=== PATIENT | male | born 1975 | race Two or more races ===

== ENCOUNTER 2020-08-31 08:00 | Inpatient (IN) | payer MEDICAID ==
[~2020-08-31] VITALS: Ht 165.1 cm; Wt 79.8 kg
[2020-08-31] VITALS (7 sets, daily range): BP systolic 107–127; BP diastolic 72–86
--- NOTE | 2020-08-31 08:30 | NUR ---
ED Nurse Note: pt arrived from home for increased SOB x1 week. O2 sat 73% RA, 88% 10L NC. pt diaphoretic, febrile (no meds taken at home). RR in50's, accessory muscle use. pt tachycardic in 130's. pt placed on continuous director cardiac. IVs initiated, fluids infusing. pt O2 sat increased to 95% on 15L NRB. pt A&Ox4. labs sent, covid swab in lab. respiratory at bedside. aware. pt favio [facility].
[2020-08-31 08:35] LABS: HEMOGLOBIN 12.5 G/DL (12.0-16.0); MEAN CORPUSCULAR VOLUME 75 FL (80-99); PLATELET COUNT 244 K/UL (150-450); RED BLOOD COUNT 4.77 M/UL (4.20-5.40); RED CELL DISTRIBUTION WIDTH 16.9 % (11.6-14.8); WHITE BLOOD COUNT 7.6 K/UL (4.8-10.8)
[2020-08-31] MEDS ORDERED: Acetaminophen 500mg (ES) tab ORAL ONE (08:45)
[2020-08-31 08:49] LABS: ANION GAP 11 mmol/L (5-15); BLOOD UREA NITROGEN 12 mg/dL (7-18); CALCIUM 7.6 MG/DL (8.5-10.1); CARBON DIOXIDE 22 MMOL/L (21-32); CHLORIDE 96 MMOL/L (98-107); CREATININE 1.3 MG/DL (0.55-1.30); POTASSIUM 3.3 MMOL/L (3.5-5.1); SODIUM 129 MMOL/L (136-145)
[2020-08-31] MEDS ORDERED: Piperacillin/Tazobactam 3.375 GM in NS 110 ML IVPB ONE (09:00)
[2020-08-31] MEDS ORDERED: Azithromycin 500 MG in NS 275 ML IV ONE (09:00)
--- NOTE | 2020-08-31 09:00 | Diagnostic Imaging Report ---
EXAM: XR Chest, 1 View CLINICAL HISTORY: SOB TECHNIQUE: Frontal view of the chest. COMPARISON: No relevant prior studies available. FINDINGS/IMPRESSION: Patchy bilateral airspace consolidations, consistent with severe multifocal infiltrate. Suspect, small effusions. No pneumothorax. Follow-up chest radiograph recommended. Cardiomegaly.
[2020-08-31 09:05] LABS: ALANINE AMINOTRANSFERASE 33 U/L (12-78); ALBUMIN 2.9 G/DL (3.4-5.0); ALBUMIN/GLOBULIN RATIO 0.6 (1.0-2.7); ALKALINE PHOSPHATASE 57 U/L (46-116); ASPARTATE AMINO TRANSFERASE 54 U/L (15-37); BILIRUBIN,TOTAL 0.5 MG/DL (0.2-1.0); FERRITIN 344 NG/ML (8-388); LACTATE DEHYDROGENASE 513 U/L (81-234)
[2020-08-31] MEDS ORDERED: LORazepam Inj 2mg/ml 1ml IV ONE (09:30)
[2020-08-31] MEDS ORDERED: Enoxaparin 40mg Inj SUBQ ONE (09:30)
[2020-08-31] MEDS ORDERED: dexAMETHasone 10mg/ml Inj IV ONE (09:30)
[2020-08-31 09:34] LABS: APPEARANCE,URINE CLEAR; BILIRUBIN, URINE NEGATIVE (NEGATIVE); COLOR,URINE PALE YELLOW; GLUCOSE, URINE (UA) NEGATIVE (NEGATIVE); KETONES,URINE NEGATIVE (NEGATIVE); LEUKOCYTE ESTERASE ,URINE NEGATIVE (NEGATIVE); NITRITE,URINE NEGATIVE (NEGATIVE); PH,URINE 6 (4.5-8.0); PROTEIN,URINE 2+ (NEGATIVE); UROBILINOGEN,URINE NORMAL MG/DL (0.0-1.0)
--- NOTE | 2020-08-31 10:01 | NUR ---
ED Nurse Note: reflex lactic drawn and sent to lab. pt on side to increase respiratory abililty.. on continuous gambling monitor. RR still 30-40. ax temp 100.5.
--- NOTE | 2020-08-31 10:30 | NUR ---
ED Nurse Note: pt tachypnea in 40's on bipap. pt rectal temp 100.8. notified. ice packs applied
--- NOTE | 2020-08-31 10:38 | Emergency Room Report ---
History of Present Illness General Chief Complaint: Flu Like Symptoms Source: Patient Present Illness HPI 45-year-old male presents for shortness of breath. Brought in by EMS from home. Short of breath x1 week. Per EMS hypoxic to the 80s. Placed on oxygen. On arrival he is tachypneic. Crackles. Febrile in triage. Denies chest pain. States he has not been tested for Covid. Lives with his friends. No other aggravating relieving factors. Denies any other associated symptoms Allergies: Coded Allergies: No Known Allergies (Unverified , 08/31/20) COVID-19 Screening Contact w/high risk pt: No Experienced COVID-19 symptoms?: Yes COVID-19 Testing performed BRICK MASON: No Patient History Past Medical History: none Past Surgical History: none Pertinent Family History: none Social History: Denies: smoking, alcohol use, drug use Immunizations: UTD Reviewed Nursing Documentation: PMH: Agreed; PSxH: Agreed Nursing Documentation-PMH Past Medical History: No Stated History Review of Systems All Other Systems: negative except mentioned in HPI Physical Exam Vital Signs Date Time Temp Pulse Resp B/P (MAP) Pulse Ox O2 Delivery O2 Flow Rate FiO2 08/31/20 07:55 102.0 134 24 141/85 (103) 84 Room Air 08/31/20 08:25 15.0 08/31/20 08:26 96 Sp02 EP Interpretation: reviewed, normal General Appearance: alert, GCS 15, non-toxic, mild distress Head: normocephalic, atraumatic Eyes: bilateral eye normal inspection, bilateral eye PERRL ENT: hearing grossly normal, normal pharynx, no angioedema, normal voice Neck: full range of motion, supple/symm/no masses Respiratory: chest non-tender, accessory muscle use, crackles, speaking full sentences Cardiovascular #1: no edema, tachycardia Cardiovascular #2: 2+ carotid (R), 2+ carotid (L), 2+ radial (R), 2+ radial (L), 2+ dorsalis pedis (R), 2+ dorsalis pedis (L) Gastrointestinal: normal bowel sounds, non tender, soft, non-distended, no guarding, no rebound Rectal: deferred Genitourinary: normal inspection, no CVA tenderness Musculoskeletal: back normal, normal range of motion, gait/station normal, non- tender Neurologic: alert, motor strength/tone normal, oriented x3, sensory intact, responsive, speech normal Psychiatric: judgement/insight normal, memory normal, mood/affect normal, no suicidal/homicidal ideation Reflexes: 3+ bicep (R), 3+ bicep (L), 3+ tricep (R), 3+ tricep (L), 3+ knee (R), 3+ knee (L) Skin: other - See nursing notes Lymphatic: no adenopathy Procedures Critical Care Time Critical Care Time i. I feel this is a highly complex case requiring extensive working including EKG/Rhythm strip, Xray/CT/US, Blood/urine lab work, repeat exams while in ED, and administration of strong opiates/narcotics for pain control, admission to hospital or close patient follow up. Total time: 45 min bedside evaluation and treatment excludes procedures (EKG). Reason for critical care: Hypoxia, respiratory distress Possible complications: hypotension, hypertension, RI, shock, arrhythmias, metabolic acidosis, end organ damage, respiratory failure. Interventions: Labs, EKG, chest x-ray, ABG, BiPAP, cardiac monitoring, isolation precautions, Covid swab, Decadron, Lovenox, antibiotics Course: Patient brought in for shortness of breath. Hypoxic. Chest x-ray shows patchy bilateral opacities. Concerning for Covid. Covid swab sent. Given broad-spectrum antibiotics. Given Decadron and Lovenox. Started on BiPAP. Respiratory status improved. Consultations: nursing staff, EMS, family Performed by: Dr Kat Tolerated well condition = critical j. because of unstable vital signs this patient had a condition that could potentially threaten life or limb. I feel this is a critical patient who required my full attention while patient was considered critical. Total Critical Care Time excluding procedures was greater than 45 minutes Medical Decision Making Diagnostic Impression: Primary Impression: COVID-19 Additional Impressions: Respiratory distress Pancreatitis Qualified Codes: K85.90 - Acute pancreatitis without necrosis or infection, unspecified ER Course Hospital Course 45-year-old male presents with respiratory distress, hypoxia Differential diagnoses include: Pneumonia, CHF exacerbation, pneumothorax, fluid overload Clinical course Patient placed on stretcher. In isolation. I wore full PPE. On vp communications with hypoxia on room air and tachycardia. After initial history and physical I ordered labs, IV fluids, EKG, chest x-ray, blood cultures, UA. Patient started on BiPAP Labs -no leukocytosis noted, hemoglobin/hematocrit stable, electrolytes ok, lactate 3.2, inflammatory markers elevated, D-dimer elevated, lipase elevated EKGsinus tachycardia no acute ischemic changes interpreted by me CXR -bilateral patchy opacities Highly suspicious for Covid. Covid swab sent. Antibiotics given. Decadron and Lovenox given. Respiratory status improving on BiPAP Case discussed with Dr. Fragoso and he agreed to the patient to his service for further care and support I feel this is a highly complex case requiring extensive working including EKG/Rhythm strip, Xray/CT/US, Blood/urine lab work, repeat exams while in ED, and administration of strong opiates/narcotics for pain control, admission to hospital or close patient follow up. Diagnosis -COVID-19, respiratory distress, pancreatitis Patient admitted to SDU in critical condition Laboratory Tests Test 08/31/20 08:07 08/31/20 08:45 08/31/20 08:50 08/31/20 10:16 White Blood Count 7.6 K/UL (4.8-10.8) Red Blood Count 4.77 M/UL (4.20-5.40) Hemoglobin 12.5 G/DL (12.0-16.0) Hematocrit 36.0 % (37.0-47.0) L Mean Corpuscular Volume 75 FL (80-99) L Mean Corpuscular Hemoglobin 26.3 PG (27.0-31.0) L Mean Corpuscular Hemoglobin Concent 34.8 G/DL (32.0-36.0) Red Cell Distribution Width 16.9 % (11.6-14.8) H Platelet Count 244 K/UL (150-450) Mean Platelet Volume 8.2 FL (6.5-10.1) Neutrophils (%) (Auto) % (45.0-75.0) Lymphocytes (%) (Auto) % (20.0-45.0) Monocytes (%) (Auto) % (1.0-10.0) Eosinophils (%) (Auto) % (0.0-3.0) Basophils (%) (Auto) % (0.0-2.0) Prothrombin Time 11.3 SEC (9.30-11.50) Prothromb Time International Ratio 1.0 (0.9-1.1) Activated Partial Thromboplast Time 30 SEC (23-33) D-Dimer 2.07 mg/L FEU (0.00-0.49) H Sodium Level 129 MMOL/L (136-145) L Potassium Level 3.3 MMOL/L (3.5-5.1) L Chloride Level 96 MMOL/L (98-107) L Carbon Dioxide Level 22 MMOL/L (21-32) Anion Gap 11 mmol/L (5-15) Blood Urea Nitrogen 12 mg/dL (7-18) Creatinine 1.3 MG/DL (0.55-1.30) Estimat Glomerular Filtration Rate > 60 mL/min (>60) Glucose Level 148 MG/DL (74-106) H Lactic Acid Level 3.10 mmol/L (0.4-2.0) H Pending Calcium Level 7.6 MG/DL (8.5-10.1) L Ferritin 344 NG/ML (8-388) Total Bilirubin 0.5 MG/DL (0.2-1.0) Aspartate Amino Transf (AST/SGOT) 54 U/L (15-37) H Alanine Aminotransferase (ALT/SGPT) 33 U/L (12-78) Alkaline Phosphatase 57 U/L (46-116) Lactate Dehydrogenase 513 U/L (81-234) H Troponin I 0.002 ng/mL (0.000-0.056) C-Reactive Protein, Quantitative 20.3 mg/dL (0.00-0.90) H Pro-B-Type Natriuretic Peptide 33 pg/mL (0-125) Total Protein 7.9 G/DL (6.4-8.2) Albumin 2.9 G/DL (3.4-5.0) L Globulin 5.0 g/dL Albumin/Globulin Ratio 0.6 (1.0-2.7) L Lipase 1347 U/L (73-393) H Urine Color Pale yellow Urine Appearance Clear Urine pH 6 (4.5-8.0) Urine Specific Everly 1.010 (1.005-1.035) Urine Protein 2+ (NEGATIVE) H Urine Glucose (UA) Negative (NEGATIVE) Urine Ketones Negative (NEGATIVE) Urine Blood 2+ (NEGATIVE) H Urine Nitrite Negative (NEGATIVE) Urine Bilirubin Negative (NEGATIVE) Urine Urobilinogen Normal MG/DL (0.0-1.0) Urine Leukocyte Esterase Negative (NEGATIVE) Urine RBC 0-2 /HPF (0 - 0) H Urine WBC 0 /HPF (0 - 0) Urine Squamous Epithelial Cells Occasional /LPF Urine Bacteria Occasional /HPF (NONE) Arterial Blood pH 7.480 (7.350-7.450) Arterial Blood Partial Pressure CO2 26.5 mmHg (35.0-45.0) L Arterial Blood Partial Pressure O2 114.7 mmHg (75.0-100.0) H Arterial Blood HCO3 19.3 mmol/L (22.0-26.0) L Arterial Blood Oxygen Saturation 97.6 % (95-100) Arterial Blood Base Excess -2.9 (-2-2) L Jack Test Positive EKG Diagnostic Results Troponin ordered: Yes Rate: tachycardiac Rhythm: NSR ST Segments: no acute changes ASA given to the pt in ED: No Rhythm Strip Diag. Results EP Interpretation: yes Rhythm: NSR, no PVC's, no ectopy Chest X-Ray Diagnostic Results Chest X-Ray Diagnostic Results : Chest X-Ray Ordered: Yes # of Views/Limited/Complete: 1 View Indication: Shortness of Breath EP Interpretation: Yes Interpretation: no effusion, no pneumothorax, other - Bilateral patchy opacities Impression: Other - Pneumonia Electronically Signed by: Electronically signed by Alfredo Kat MD Last Vital Signs Date Time Temp Pulse Resp B/P (MAP) Pulse Ox O2 Delivery O2 Flow Rate FiO2 08/31/20 10:02 100.5 99 40 115/82 100 Bi-pap 100 08/31/20 08:26 15.0 Status: improved Disposition: ADMITTED INPATIENT Condition: Critical Scripts No Active Prescriptions or Reported Meds Referrals: NOT CHOSEN IPA/,REFERRING (PCP) Alfredo Kat MD Aug 31, 2020 10:38
[2020-08-31] MEDS ORDERED: Ketorolac 30mg Inj IV ONE (10:45)
[2020-08-31] MEDS ORDERED: Albuterol/Ipratropium 3ml neb HHN ONE (10:45)
--- NOTE | 2020-08-31 10:59 | NUR ---
ED Nurse Note: report called to dale DONOVAN in SDU.
--- NOTE | 2020-08-31 11:25 | NUR ---
NURSE NOTES: Pt received from Matilde DONOVAN. Vitals as follows 112/72, HR 91, Resp 33, O2 96% on Bipap, 98.7 axillary. Pt complains of generalized body pain but no chest pain at this time. Bed low and locked, call light placed within reach. Pt demonstrates understanding. Per pt no history no allergies. [employer] counted>
[2020-08-31] MEDS ORDERED: Albuterol 90mcg Inhaler 8gm INH PRN (12:15)
--- NOTE | 2020-08-31 14:21 | NUR ---
CASE MANAGEMENT: INITIAL REVIEW 45 YO M WITH SOB CC: FLU LIKE SYMPTOMS. 86% ON RA PMHx: UNABLE TO STATE SI:SOB. COVID. Pancreatitis. VS: T 102 HR 134 RR 24 B/P 141/85 SATS 84% ON RA LABS: NA 129 K 3.3 CL 96 GLU 148 CA 7.6 AST 54 LDH 513 CRP 20.3 LIPASE 1347 IS: NS BOLUS X1 TYLENOL PO X1 EKGsinus tachycardia no acute ischemic changes interpreted by me CXR -bilateral patchy opacities PATIENT ADMITTED TO SDU 08/31/2020 @ 0848 DCP: HOME
--- NOTE | 2020-08-31 14:37 | NUR ---
NURSE NOTES: Dr. Fragoso made aware of Ddimer, Na, K, Cl, lipase. 20mg K ordered.
[2020-08-31] MEDS: cefTRIAXone 1 GM in D5W 55 ML IVPB SCH (15:02)
[2020-08-31] MEDS: Albuterol 90mcg Inhaler 8gm INH SCH ×2 (15:03→18:05)
--- NOTE | 2020-08-31 17:44 | Consultation ---
DATE OF CONSULTATION: 08/31/2020 PULMONARY CONSULTATION HISTORY OF PRESENT ILLNESS: This is a 45-year-old male who was brought in by paramedics. He reports shortness of breath. He was hypoxic and placed on oxygen. He was tachypneic. The patient was febrile. The patient states that he has not been tested for COVID. However, he believes that he may have contracted this condition. PAST MEDICAL HISTORY: None. SURGERIES: None. SOCIAL HISTORY: Denies alcohol or tobacco usage. REVIEW OF SYSTEMS: Denies any headaches, hematemesis, melena, hematochezia, or weight loss. PHYSICAL EXAMINATION: GENERAL: A 45-year-old male. HEENT: Unremarkable. LUNGS: Clear breath sounds bilaterally. HEART: Normal heart sounds. ABDOMEN: Soft. EXTREMITIES: There is no edema. VITAL SIGNS: Blood pressure is 117/70, heart rate 68, respirations 20, O2 sat is 100% on nonrebreather mask. LABORATORY DATA: Lab testing shows normal CBC and BMP with a sodium of 129, potassium 3.3, glucose 148, lactic acid 3.1, now 1.2. LDH 513. Troponin 0.002. CRP is 20. Coags show D-dimer of 2. Urinalysis negative. IMAGING STUDIES: X-ray chest was obtained, which shows patchy bilateral air space disease. IMPRESSION: 1. Pneumonia, likely COVID. 2. Elevated inflammatory markers. 3. Hypoxemia. DISCUSSION: Admit to the hospital. We will start Decadron. We will start Lovenox. Defer the use of remdesivir to ID specialist. We will wean down oxygen as tolerated. We will follow carefully. Tomi Mark M.D. DR: ELDA JOB#: [id number] CC:
--- NOTE | 2020-08-31 19:18 | NUR ---
NURSE HAND-OFF REPORT: Important Events on Shift:[Pt arrived from ED. Weaned off of bipap onto Nonrebreather. Tolerating well. ] Patient Status: [Full code] Diet: [Regular] Pending Orders: [] Pending Results/Labs:[] Pending MD notification:[] Latest Vital Signs: Temperature 96.0 , Pulse 57 , B/P 114 /86 , Respiratory Rate 24 , O2 SAT 100 , Bi-pap, O2 Flow Rate 15.0 . Vital Sign Comment: [] EKG Rhythm: Sinus Bradycardia Rhythm change?: N MD Notified?: - MD Response: Latest Stone Fall Score: 20 Fall Risk: Low Risk Safety Measures: Call light Within Reach, Bed Alarm , Side Rails Side Rails x2, Bed position Low and Locked. Fall Precautions: Patient Fall Education Report given to [Ally DONOVAN].
--- NOTE | 2020-08-31 19:30 | NUR ---
NURSE NOTES: Patient in bed awake,alert to name reality orientation provided. On Non-rebreather mask 100% satting 100%. HOB elevated. Instructed patient to use call light for assistance. Urinal at bedside. LFA IV #20 intact no s/s of infiltration. Denies any pain or discomfort. bed alarm on. bed locked and in low position. Covid 19 + airborne precaution maintained and observed. will continue plan of care.
[2020-08-31] MEDS ORDERED: Enoxaparin 30mg Inj SUBQ SCH (21:00)
--- NOTE | 2020-08-31 21:00 | NUR ---
NURSE NOTES: Assisted to bedside commode with x1 large lose BM
[2020-09-01] VITALS: BP 118/75
--- NOTE | 2020-09-01 01:00 | NUR ---
NURSE NOTES: patient sleeping in bed. on 100% non-rebreather mask. denies any pain or discomfort. no s/s of acute distress noted. frequent visual checks continued. will continue plan of care.
[2020-09-01 04:00] VITALS: BP 120/75
--- NOTE | 2020-09-01 07:25 | NUR ---
NURSE NOTES: Received patient report from Zhao Canales. Patient is AO x3, in bed asleep at this time. No pain or discomfort noted at this time. Patient with LFA 20G, patent and intact. Patient on Non rebreather 15L at this time satting at 96%. Bed in lowest position, locked with side rails x2 up. Call light within reach.
--- NOTE | 2020-09-01 07:30 | NUR ---
NURSE HAND-OFF REPORT: Important Events on Shift: Patient Status: Diet: Regular Pending Orders: Pending Results/Labs: Pending MD notification: Latest Vital Signs: Temperature 97.7 , Pulse 71 , B/P 120 /75 , Respiratory Rate 30 , O2 SAT 100 , Non Re-breather mask 100% Vital Sign Comment: EKG Rhythm: Sinus Rhythm Rhythm change?: N MD Notified?: - MD Response: Latest Stone Fall Score: 20 Fall Risk: Low Risk Safety Measures: Call light Within Reach, Bed Alarm Zone 2, Side Rails Side Rails x2, Bed position Low and Locked. Fall Precautions: Yellow Socks Yellow Gown Door Sign Patient Fall Education Report given to Kaitlin DONOVAN .
[2020-09-01 08:00] VITALS: BP 129/77
[2020-09-01] MEDS: dexAMETHasone 10mg/ml Inj IV SCH (08:09)
[2020-09-01] MEDS: Azithromycin 250mg tab ORAL SCH (08:09)
[2020-09-01] MEDS: Enoxaparin 40mg Inj SUBQ SCH (08:10)
[2020-09-01] MEDS: Albuterol 90mcg Inhaler 8gm INH SCH ×3 (09:00→18:09)
--- NOTE | 2020-09-01 11:18 | Pulmonology Progress Note ---
Subjective Interval Events: None new Constitutional: Reports: no symptoms HEENT: Repors: no symptoms Respiratory: Reports: no symptoms Cardiovascular: Reports: no symptoms Gastrointestinal/Abdominal: Reports: no symptoms Allergies: Coded Allergies: No Known Allergies (Unverified , 08/31/20) Objective Last 24 Hour Vital Signs Date Time Temp Pulse Resp B/P (MAP) Pulse Ox O2 Delivery O2 Flow Rate FiO2 09/01/20 08:00 96.8 89 29 129/77 (94) 95 09/01/20 08:00 71 09/01/20 07:50 91 Non-Rebreather 15.0 100 09/01/20 04:00 97.7 30 120/75 (90) 100 09/01/20 04:00 71 09/01/20 00:00 96.7 30 118/75 (89) 100 08/31/20 20:00 80 08/31/20 20:00 96.0 30 127/75 (92) 100 08/31/20 16:10 Non-Rebreather 15.0 08/31/20 16:00 57 08/31/20 16:00 96.0 24 114/86 (95) 100 08/31/20 12:35 74 24 100 08/31/20 12:00 65 08/31/20 12:00 98.2 22 117/72 (87) 100 08/31/20 11:24 99 42 98 Bi-Pap 100 08/31/20 11:21 99 42 98 100 Intake and Output 08/31/20 09/01/20 19:00 07:00 Intake Total 150 ml 600 ml Output Total 350 ml 2000 ml Balance -200 ml -1400 ml Intake Oral 150 ml 600 ml Output Urine Total 350 ml 2000 ml # Voids 1 5 # Bowel Movements 1 General Appearance: no acute distress HEENT: normocephalic Respiratory: decreased breath sounds Cardiovascular: normal peripheral pulses, normal rate Abdomen: normal bowel sounds Current Medications Medications (Trade) Dose Ordered Sig/Sami Route PRN Reason Start Time Stop Time Status Last Admin Dose Admin Acetaminophen (Tylenol) 650 mg Q6H PRN ORAL Mild Pain (Pain Scale 1-3) 08/31/20 12:15 09/30/20 12:14 Acetaminophen (Tylenol) 650 mg Q6H PRN ORAL For temp >100.4 08/31/20 12:30 09/30/20 12:29 Albuterol Sulfate (Proventil MDI) 2 puff TID INH 08/31/20 13:46 11/29/20 13:45 09/01/20 09:00 Azithromycin (Zithromax) 500 mg DAILY ORAL 09/01/20 09:00 09/08/20 08:59 09/01/20 08:09 Ceftriaxone Sodium 1 gm/ Dextrose 55 ml @ 110 mls/hr Q24H IVPB 08/31/20 15:00 09/07/20 14:59 08/31/20 15:02 Dexamethasone Sodium Phosphate (Decadron 10mg/ ml Inj) 6 mg DAILY IV 09/01/20 09:00 09/09/20 12:00 09/01/20 08:09 Enoxaparin Sodium (Lovenox) 40 mg DAILY SUBQ 09/01/20 09:00 11/30/20 08:59 09/01/20 08:10 Assessment/Plan Assessment/Plan IMPRESSION: 1. Pneumonia, likely COVID. 2. Elevated inflammatory markers. 3. Hypoxemia. DISCUSSION: A Continue Decadron. Continue Lovenox. Defer the use of remdesivir to ID spec ialist. I will wean down oxygen as tolerated. Tomi Mark M.D. Tomi Mark MD Sep 01, 2020 11:18
[2020-09-01 12:00] VITALS: BP 119/74
--- NOTE | 2020-09-01 14:31 | General Progress Note ---
Subjective Constitutional: Reports: chills, fever, malaise HEENT: Reports: no symptoms Cardiovascular: Reports: chest pain Respiratory: Reports: orthopnea, shortness of breath Gastrointestinal/Abdominal: Reports: no symptoms Genitourinary: Reports: no symptoms Neurologic/Psychiatric: Reports: no symptoms Endocrine: Reports: no symptoms Hematologic/Lymphatic: Reports: no symptoms Allergies: Coded Allergies: No Known Allergies (Unverified , 08/31/20) Objective Last 24 Hour Vital Signs Date Time Temp Pulse Resp B/P (MAP) Pulse Ox O2 Delivery O2 Flow Rate FiO2 09/01/20 12:00 71 09/01/20 12:00 98.4 27 119/74 (89) 100 09/01/20 08:00 96.8 89 29 129/77 (94) 95 09/01/20 08:00 71 09/01/20 07:50 91 Non-Rebreather 15.0 100 09/01/20 04:00 97.7 30 120/75 (90) 100 09/01/20 04:00 71 09/01/20 00:00 96.7 30 118/75 (89) 100 08/31/20 20:00 80 08/31/20 20:00 96.0 30 127/75 (92) 100 08/31/20 16:10 Non-Rebreather 15.0 08/31/20 16:00 57 08/31/20 16:00 96.0 24 114/86 (95) 100 Intake and Output 08/31/20 09/01/20 19:00 07:00 Intake Total 150 ml 600 ml Output Total 350 ml 2000 ml Balance -200 ml -1400 ml Intake Oral 150 ml 600 ml Output Urine Total 350 ml 2000 ml # Voids 1 5 # Bowel Movements 1 Height (Feet): 5 Height (Inches): 5.00 Weight (Pounds): 176 General Appearance: moderate distress EENT: PERRL/EOMI Neck: supple Cardiovascular: regular rhythm Respiratory/Chest: rhonchi - bilaterally Abdomen: non tender, soft Extremities: non-tender Assessment/Plan Assessment/Plan: ac sob covid pna iv abx iv decadrone novnex regolar diet pulmo on case cont fio2 Brian Fragoso MD Sep 01, 2020 14:31
[2020-09-01] MEDS: cefTRIAXone 1 GM in D5W 55 ML IVPB SCH (15:00)
[2020-09-01 16:00] VITALS: BP 116/81
--- NOTE | 2020-09-01 19:15 | NUR ---
NURSE HAND-OFF REPORT: Important Events on Shift:NA Patient Status: Stable Diet: Regular Pending Orders: NA Pending Results/Labs:NA Pending MD notification:NA Latest Vital Signs: Temperature 96.4 , Pulse 92 , B/P 116 /81 , Respiratory Rate 28 , O2 SAT 98 , Bi-pap, O2 Flow Rate 15.0 . Vital Sign Comment: Stable EKG Rhythm: Sinus Rhythm Rhythm change?: N MD Notified?: - MD Response: Latest Stone Fall Score: 20 Fall Risk: Low Risk Safety Measures: Call light Within Reach, Bed Alarm Zone 2, Side Rails Side Rails x2, Bed position Low and Locked. Fall Precautions: Yellow Socks Yellow Gown Door Sign Patient Fall Education Report given to ZION Henry.
[2020-09-01 20:00] VITALS: BP 121/71
--- NOTE | 2020-09-01 21:40 | NUR ---
NURSE NOTES: Received report from ZION Henry. Patient awake in bed, able to communicate, afebrile in bed and no respiratory distress noted. On NRM at 15lpm saturating at 99-100%. with Right FA 24g Iv line intact, patent and asymptomatic. Needs were attended. HOB elevated.Ze light within reach. Bed rails and wheels are locked. Continue plan of care.
--- NOTE | 2020-09-01 21:40 | NUR ---
Report given to ZION Thibodeaux and handed off care of patient at 2139. Unfortunately, due to critical condition of another patient, this RN was unable to assess this patient or see the patient. However, ZION Canales did go into patients room so aware that patient is doing ok during critical care of my other patient. This RN followed critical patient over to ICU where I will continue the rest of my shift. fan mail editor, Todd & Ally aware of inability to assess/chart on this patient as I did not physically see him for myself. Also updated ICU fan mail editor of situation.
[2020-09-02] VITALS: BP 128/73
--- NOTE | 2020-09-02 01:00 | NUR ---
NURSE NOTES: Pt was asleep in bed. Refused to change gown and linen for now. Pt saturating at 100%. No discomforts or any complaints. Continue to monitor patient.
[2020-09-02 04:00] VITALS: BP 112/75
--- NOTE | 2020-09-02 07:20 | NUR ---
NURSE HAND-OFF REPORT: Important Events on Shift: Stable Patient Status: Stable Diet: REgualr Pending Orders: n Pending Results/Labs: n Pending MD notification: n Latest Vital Signs: Temperature 98.1 , Pulse 90 , B/P 112 /75 , Respiratory Rate 20 , O2 SAT 100 , Bi-pap, O2 Flow Rate 15.0 . Vital Sign Comment: n EKG Rhythm: Sinus Rhythm Rhythm change?: N MD Notified?: - MD Response: Latest Stone Fall Score: 20 Fall Risk: Low Risk Safety Measures: Call light Within Reach, Bed Alarm Zone 2, Side Rails Side Rails x2, Bed position Low and Locked. Fall Precautions: Yellow Socks Yellow Gown Door Sign Patient Fall Education Report given to ZION Carrington. Pt is saturating 100%.
--- NOTE | 2020-09-02 07:50 | NUR ---
NURSE NOTES: Received report from ZION FORD. Patient in bed resting, no active s/s cardiac, respiratory distress noticed at this time. Patient sleeping, AOX4, easy to awake. SR with HR 90, on non-rebreather 15L O2 sat 99%. Bed in lowest position, side rails upx3, call light within reach, bed alarm on, Will continue to monitor.
[2020-09-02 08:00] VITALS: BP 116/76
--- NOTE | 2020-09-02 08:14 | History and Physical Report ---
DATE OF ADMISSION: 08/31/2020 HISTORY OF PRESENT ILLNESS: This is a 45-year-old male who came to the emergency room for having shortness of breath, hypoxia. The patient was having shortness of breath for the last few days. No fever or chills. PAST MEDICAL HISTORY: None. ALLERGIES: None. SOCIAL HISTORY: The patient lives at home. PHYSICAL EXAMINATION: GENERAL: This is a young obese male who is currently in the bed, sitting, on BiPAP. VITAL SIGNS: Blood pressure is 130/70, pulse 84, respirations 18, no fever. HEENT: NAD. CHEST: Bilaterally decreased breath sounds. Scattered rhonchi. CARDIOVASCULAR: Regular rhythm. No gallop. No murmur. ABDOMEN: Soft. Positive bowel sounds. Nontender. EXTREMITIES: No edema. IMAGING: Chest x-ray is showing pneumonia. ASSESSMENT AND PLAN: 1. COVID pneumonia. 2. Acute respiratory failure. PLAN: We will admit him on ZANA. Continue on 100% oxygen. Add Decadron. Continue Lovenox. Continue IV antibiotics, Rocephin and Zithromax, bronchodilator treatments. Consider ID consult. Juan Fragoso M.D. DR: NORBERTO JOB#: [id number] CC:
[2020-09-02] MEDS: Azithromycin 250mg tab ORAL SCH (08:52)
[2020-09-02] MEDS: dexAMETHasone 10mg/ml Inj IV SCH (08:52)
[2020-09-02] MEDS: Enoxaparin 40mg Inj SUBQ SCH (08:54)
[2020-09-02] MEDS: Albuterol 90mcg Inhaler 8gm INH SCH ×3 (09:00→19:00)
--- NOTE | 2020-09-02 10:30 | NUR ---
NURSE NOTES: Leatha ALONZO made aware patient tolerating Non-rebreather 100%, O2 sat 99-100%, per PA, wean as tolerated.
--- NOTE | 2020-09-02 10:30 | NUR ---
CASE MANAGEMENT:REVIEW 09/02/20 SI: PNEUMONIA. LIKELY COVID. PUI 97.4 82 20 116/76 99% ON 15L/100% NRB IS: IV DECADRON QD IV ROCEPHIN Q24 AZITHROMYCIN PO QD LOVENOX SQ QD ALBUTEROL INH TID : STEP DOWN UNIT DCP: FROM HOME
--- NOTE | 2020-09-02 10:59 | Pulmonology Progress Note ---
Subjective Interval Events: None new Constitutional: Reports: no symptoms HEENT: Repors: no symptoms Respiratory: Reports: no symptoms Cardiovascular: Reports: no symptoms Gastrointestinal/Abdominal: Reports: no symptoms Allergies: Coded Allergies: No Known Allergies (Unverified , 08/31/20) Objective Last 24 Hour Vital Signs Date Time Temp Pulse Resp B/P (MAP) Pulse Ox O2 Delivery O2 Flow Rate FiO2 09/02/20 10:27 99 Non-Rebreather 15.0 100 09/02/20 08:00 97.4 82 20 116/76 (89) 99 09/02/20 08:00 Non-Rebreather 15.0 09/02/20 08:00 64 09/02/20 04:00 Non-Rebreather 15.0 09/02/20 04:00 98.1 90 20 112/75 (87) 100 09/02/20 03:45 60 09/02/20 00:00 73 09/02/20 00:00 98.1 21 128/73 (91) 99 09/02/20 00:00 Non-Rebreather 15.0 09/01/20 20:00 96.4 28 121/71 (88) 98 09/01/20 20:00 81 09/01/20 19:40 98 Non-Rebreather 15.0 100 09/01/20 16:00 96.4 28 116/81 (93) 98 09/01/20 16:00 92 09/01/20 12:00 71 09/01/20 12:00 98.4 27 119/74 (89) 100 Intake and Output 09/01/20 09/02/20 19:00 07:00 Intake Total 375 ml 300 ml Output Total 1000 ml 1500 ml Balance -625 ml -1200 ml Intake Oral 320 ml 300 ml IV Total 55 ml Output Urine Total 1000 ml 1500 ml # Voids 2 3 # Bowel Movements 2 General Appearance: no acute distress HEENT: normocephalic Respiratory: decreased breath sounds Cardiovascular: normal peripheral pulses, normal rate Abdomen: normal bowel sounds Current Medications Medications (Trade) Dose Ordered Sig/Sami Route PRN Reason Start Time Stop Time Status Last Admin Dose Admin Acetaminophen (Tylenol) 650 mg Q6H PRN ORAL Mild Pain (Pain Scale 1-3) 08/31/20 12:15 09/30/20 12:14 Acetaminophen (Tylenol) 650 mg Q6H PRN ORAL For temp >100.4 08/31/20 12:30 09/30/20 12:29 Albuterol Sulfate (Proventil MDI) 2 puff TID INH 08/31/20 13:46 11/29/20 13:45 09/01/20 18:09 Azithromycin (Zithromax) 500 mg DAILY ORAL 09/01/20 09:00 09/08/20 08:59 09/02/20 08:52 Ceftriaxone Sodium 1 gm/ Dextrose 55 ml @ 110 mls/hr Q24H IVPB 08/31/20 15:00 09/07/20 14:59 09/01/20 15:00 Dexamethasone Sodium Phosphate (Decadron 10mg/ ml Inj) 6 mg DAILY IV 09/01/20 09:00 09/09/20 12:00 09/02/20 08:52 Enoxaparin Sodium (Lovenox) 40 mg DAILY SUBQ 09/01/20 09:00 11/30/20 08:59 09/02/20 08:54 Assessment/Plan Assessment/Plan 1. Pneumonia, likely COVID. - COVID-19 PUI - On broad-spectrum Abx - on remdesivir 2. Elevated inflammatory markers. - on Lovenox 3. Hypoxemia. - On decadron - on NRB saturating well; wean as tolerated The care for this patient was discussed with my supervising physician Time spent for this case was approximately 31 minutes Titi Zhang Sep 02, 2020 10:59
--- NOTE | 2020-09-02 11:30 | NUR ---
NURSE NOTES: RT at bedside, weaning tried , on venturi patient desat. to 88%, tachypnea. Back on non-rebreather. O2 94% at this time.
[2020-09-02 12:00] VITALS: BP 125/78
--- NOTE | 2020-09-02 14:07 | NUR ---
TRANSFER TO FLOOR: Patient transferred to 221-1, per Dr. Fragoso. Report given to ZION Baker . Belongings and medications given to ZION Baker. Family and or S/O informed of transfer.
--- NOTE | 2020-09-02 14:09 | NUR ---
NURSE NOTES: Received report from ZION Carrington. Pt is ambulating from BSC to bed by himself, gait weak. Pt has no s/s or complaint of distress at this time. Pt on 15LPM NRB 100% fio2 95% spo2 even breathing. Pt IV on L wrist 22g, SL asymptomatic and intact. bed low and locked, call light in reach and bed alarm on. Pt verbalized understanding to call for help. Pt belongings accounted for w/ Zeb DONOVAN.
[2020-09-02] MEDS: cefTRIAXone 1 GM in D5W 55 ML IVPB SCH (14:15)
[2020-09-02 16:00] VITALS: BP 121/83
--- NOTE | 2020-09-02 16:03 | General Progress Note ---
Subjective Allergies: Coded Allergies: No Known Allergies (Unverified , 08/31/20) Subjective doing ok on 15 litre fio2 oriented Objective Last 24 Hour Vital Signs Date Time Temp Pulse Resp B/P (MAP) Pulse Ox O2 Delivery O2 Flow Rate FiO2 09/02/20 12:00 97.7 75 20 125/78 (94) 99 09/02/20 12:00 89 09/02/20 12:00 Non-Rebreather 15.0 09/02/20 11:30 24 88 09/02/20 10:27 99 Non-Rebreather 15.0 100 09/02/20 08:00 97.4 82 20 116/76 (89) 99 09/02/20 08:00 Non-Rebreather 15.0 09/02/20 08:00 64 09/02/20 04:00 Non-Rebreather 15.0 09/02/20 04:00 98.1 90 20 112/75 (87) 100 09/02/20 03:45 60 09/02/20 00:00 73 09/02/20 00:00 98.1 21 128/73 (91) 99 09/02/20 00:00 Non-Rebreather 15.0 09/01/20 20:00 96.4 28 121/71 (88) 98 09/01/20 20:00 81 09/01/20 19:40 98 Non-Rebreather 15.0 100 Intake and Output 09/01/20 09/02/20 19:00 07:00 Intake Total 375 ml 300 ml Output Total 1000 ml 1500 ml Balance -625 ml -1200 ml Intake Oral 320 ml 300 ml IV Total 55 ml Output Urine Total 1000 ml 1500 ml # Voids 2 3 # Bowel Movements 2 Height (Feet): 5 Height (Inches): 5.00 Weight (Pounds): 176 General Appearance: alert EENT: PERRL/EOMI Neck: supple Cardiovascular: regular rhythm Respiratory/Chest: crackles/rales Abdomen: non tender, soft Extremities: non-tender Assessment/Plan Assessment/Plan: ac sob covid pna iv abx iv decadrone novnex regolar diet pulmo on case cont fio2 Brian Fragoso MD Sep 02, 2020 16:03
--- NOTE | 2020-09-02 17:10 | NUR ---
NURSE HAND-OFF REPORT: Important Events on Shift: transfer from SDU Patient Status: stable, FC Diet: regular diet Pending Orders: Pending Results/Labs: Pending MD notification: Latest Vital Signs: Temperature 97.7 , Pulse 77 , B/P 121 /83 , Respiratory Rate 18 , O2 SAT 99 , Bi-pap, O2 Flow Rate 15.0 . Vital Sign Comment: EKG Rhythm: Sinus Rhythm Rhythm change?: N MD Notified?: - MD Response: Latest Stone Fall Score: 20 Fall Risk: Low Risk Safety Measures: Call light Within Reach, Bed Alarm Zone 2, Side Rails Side Rails x2, Bed position Low and Locked. Fall Precautions: Yellow Socks Yellow Gown Door Sign Patient Fall Education Report to be given. Addendum: 09/02/20 at 1922 by Olivia Mendiola RN RN Pt stable, report given to ZION Duke
--- NOTE | 2020-09-02 19:38 | NUR ---
NURSE NOTES: Pt. received from ZION Baker. Pt. AAOx4, breathing via NRB at 15L, no indications of acute respiratory distress, no complaints of pain, IV noted left forearm 20g, saline locked. Bed low and locked, side rails x3 up, bed alarm active, and call light in reach.
[2020-09-02 20:00] VITALS: BP 119/78
[2020-09-03] VITALS: BP 113/81
[2020-09-03 04:00] VITALS: BP 113/89
--- NOTE | 2020-09-03 07:26 | NUR ---
NURSE NOTES: Received patient report from ZION Duke. Patient is AO x4, in bed asleep at this time. Patient on Non rebreather 15L, no signs of respiratory distress at this time. No pain or discomfort noted at this time. Patient noted with LFA 20G, saline locked patent and intact. Bed low and locked, side rails x3 up, bed alarm active, and call light in reach.
--- NOTE | 2020-09-03 07:31 | NUR ---
NURSE HAND-OFF REPORT: Important Events on Shift:[pt. stable, no acute events overnight, tolerating NRB] Patient Status: stable Diet: regular Pending Orders: na Pending Results/Labs:na Pending MD notification:na Latest Vital Signs: Temperature 98.7 , Pulse 55 , B/P 113 /89 , Respiratory Rate 20 , O2 SAT 99 , Bi-pap, O2 Flow Rate 15.0 . Vital Sign Comment: stable EKG Rhythm: Sinus Bradycardia Rhythm change?: N MD Notified?: - MD Response: Latest Stone Fall Score: 30 Fall Risk: Medium Risk Safety Measures: Call light Within Reach, Bed Alarm Zone 1, Side Rails Side Rails x2, Bed position Low and Locked. Fall Precautions: Yellow Socks Yellow Gown Door Sign Patient Fall Education Report given to ZION Queen.
[2020-09-03 08:00] VITALS: BP 123/86
[2020-09-03] MEDS: Albuterol 90mcg Inhaler 8gm INH SCH ×3 (08:52→18:23)
[2020-09-03] MEDS: Enoxaparin 40mg Inj SUBQ SCH (08:52)
[2020-09-03] MEDS: dexAMETHasone 10mg/ml Inj IV SCH (08:52)
[2020-09-03] MEDS: Azithromycin 250mg tab ORAL SCH (08:52)
--- NOTE | 2020-09-03 09:06 | NUR ---
CASE MANAGEMENT:REVIEW 09/03/20 SI: PNEUMONIA. LIKELY COVID. PUI 98.7 55 20 113/89 99% ON 15L/100% NRB IS: IV DECADRON QD IV ROCEPHIN Q24 AZITHROMYCIN PO QD LOVENOX SQ QD ALBUTEROL INH TID : NOW ON TELEMETRY UNIT DCP: FROM HOME
--- NOTE | 2020-09-03 10:15 | Pulmonology Progress Note ---
Subjective Interval Events: None new Constitutional: Reports: no symptoms HEENT: Repors: no symptoms Respiratory: Reports: no symptoms Cardiovascular: Reports: no symptoms Gastrointestinal/Abdominal: Reports: no symptoms Allergies: Coded Allergies: No Known Allergies (Unverified , 08/31/20) Objective Last 24 Hour Vital Signs Date Time Temp Pulse Resp B/P (MAP) Pulse Ox O2 Delivery O2 Flow Rate FiO2 09/03/20 08:00 98.1 87 22 123/86 (98) 96 09/03/20 08:00 76 09/03/20 04:00 98.7 55 20 113/89 (97) 99 09/03/20 04:00 55 09/03/20 00:00 97.2 55 25 113/81 (92) 96 09/03/20 00:00 55 09/02/20 21:00 Non-Rebreather 15.0 09/02/20 20:00 97.2 88 22 119/78 (92) 97 09/02/20 20:00 88 09/02/20 19:03 99 Non-Rebreather 15.0 100 09/02/20 16:00 77 09/02/20 16:00 97.7 84 18 121/83 (96) 99 09/02/20 12:00 97.7 75 20 125/78 (94) 99 09/02/20 12:00 89 09/02/20 12:00 Non-Rebreather 15.0 09/02/20 11:30 24 88 09/02/20 10:27 99 Non-Rebreather 15.0 100 Intake and Output 09/02/20 09/03/20 19:00 07:00 Intake Total 400 ml 800 ml Balance 400 ml 800 ml Intake Oral 400 ml Other 800 ml # Voids 1 2 General Appearance: no acute distress HEENT: normocephalic Respiratory: decreased breath sounds Cardiovascular: normal peripheral pulses, normal rate Abdomen: normal bowel sounds Current Medications Medications (Trade) Dose Ordered Sig/Sami Route PRN Reason Start Time Stop Time Status Last Admin Dose Admin Acetaminophen (Tylenol) 650 mg Q6H PRN ORAL Mild Pain (Pain Scale 1-3) 08/31/20 12:15 09/30/20 12:14 Acetaminophen (Tylenol) 650 mg Q6H PRN ORAL For temp >100.4 08/31/20 12:30 09/30/20 12:29 Albuterol Sulfate (Proventil MDI) 2 puff TID INH 08/31/20 13:46 11/29/20 13:45 09/03/20 08:52 Azithromycin (Zithromax) 500 mg DAILY ORAL 09/01/20 09:00 09/08/20 08:59 09/03/20 08:52 Ceftriaxone Sodium 1 gm/ Dextrose 55 ml @ 110 mls/hr Q24H IVPB 08/31/20 15:00 09/07/20 14:59 09/02/20 14:15 Dexamethasone Sodium Phosphate (Decadron 10mg/ ml Inj) 6 mg DAILY IV 09/01/20 09:00 09/09/20 12:00 09/03/20 08:52 Enoxaparin Sodium (Lovenox) 40 mg DAILY SUBQ 09/01/20 09:00 11/30/20 08:59 09/03/20 08:52 Assessment/Plan Assessment/Plan 1. Pneumonia, likely COVID. - COVID-19 PUI - On broad-spectrum Abx 2. Elevated inflammatory markers. - on Lovenox 3. Hypoxemia. - On decadron - on NRB saturating well; wean as tolerated; failed weaning yesterday The care for this patient was discussed with my supervising physician Time spent for this case was approximately 31 minutes Titi Zhang Sep 03, 2020 10:15
--- NOTE | 2020-09-03 10:36 | NUR ---
RESPIRATORY NOTE: Attempted to titrate pt to Venturi mask from NRB. Pt desaturated to 89%. Placed pt back on NRB 15L 100% fio2. ZION Rosario made aware. Will continue to monitor and follow plan of care.
[2020-09-03 12:00] VITALS: BP 109/71
[2020-09-03] MEDS: cefTRIAXone 1 GM in D5W 55 ML IVPB SCH (14:27)
[2020-09-03 16:00] VITALS: BP 111/76
--- NOTE | 2020-09-03 18:56 | NUR ---
NURSE HAND-OFF REPORT: Important Events on Shift:New order of transfer patient to Med Surg Patient Status: Stable/ full code Diet: Regular Pending Orders: NA Pending Results/Labs:NA Pending MD notification:NA Latest Vital Signs: Temperature 97.9 , Pulse 88 , B/P 111 /76 , Respiratory Rate 20 , O2 SAT 99 , Bi-pap, O2 Flow Rate 15.0 . Vital Sign Comment: Stable EKG Rhythm: Sinus Bradycardia Rhythm change?: N MD Notified?: - MD Response: Fall Score: 20 Fall Risk: Low Risk Safety Measures: Call light Within Reach, Bed Alarm Zone 2, Side Rails Side Rails x2, Bed position Low and Locked. Fall Precautions: Yellow Socks Yellow Gown Door Sign Patient Fall Education Report given to pending RN assignment. Addendum: 09/03/20 at 1922 by Bernice Marsh RN Report given to ZINO Galdamez
--- NOTE | 2020-09-03 19:10 | NUR ---
NURSE NOTES: Received report from ZION Queen. Pt is ambulating from BSC to bed by himself, steady gait. Pt has no SOB or acute distress noted. Pt is on 15LPM NRB 100% Fio2 95% with even breathing. Pt has an IV LW 22G which is patent and intact. Pt's bed is in the lowest position and locked with side rails x 2. Placed call light within in reach. Pt verbalized understanding to call for help. Will continue plan of care.
[2020-09-03 20:00] VITALS: BP 106/72
--- NOTE | 2020-09-03 23:50 | NUR ---
NURSE NOTES: Report given to CRISTHIAN and inventory gone over and signed. Pt in stable condition. Endorsed plan of care.
--- NOTE | 2020-09-03 23:59 | Consultation ---
DATE OF CONSULTATION: 09/03/2020 INFECTIOUS DISEASES CONSULTATION CONSULTING PHYSICIAN: Demetra Dickerson MD REFERRING PHYSICIAN: Brian Fragoso MD REASON FOR CONSULTATION: COVID-19 pneumonia. HISTORY OF PRESENTING ILLNESS: This is a 45-year-old gentleman with no significant past medical history, who comes in with cough, shortness of breath along with headaches. He was found to have COVID-19 pneumonia and an Infectious Diseases consultation has been obtained for antibiotics. PAST MEDICAL HISTORY: Nothing significant. SOCIAL HISTORY: He does not smoke. He drinks alcohol. No history of drug use. FAMILY HISTORY: Noncontributory. REVIEW OF SYSTEMS: RESPIRATORY: He denies any fever or chills. He has cough. He has shortness of breath. No chest pain. CARDIAC: No chest pain. No palpitation. No dizziness. No syncope. GASTROINTESTINAL: No nausea. No vomiting. No abdominal pain or diarrhea. MUSCULOSKELETAL: He complains of headache. MEDICATIONS: As an inpatient, he is on Lovenox, ceftriaxone, azithromycin, dexamethasone, albuterol, Tylenol. ALLERGIES: No known drug allergies. PHYSICAL EXAMINATION: VITAL SIGNS: Temperature of 99.3, T-max of 99.3, pulse of 88, respiratory rate 22, blood pressure 109/71, O2 saturation of 96% on 15 L of oxygen. GENERAL: Examination deferred due to COVID-19. LABORATORY AND DIAGNOSTIC DATA: White count 7.6, hemoglobin 12.5, hematocrit 36, MCV 75, platelet count of 244. Sodium 129, potassium 3.3, chloride 96, bicarb 22, BUN 12, creatinine 1.3, glucose 148, calcium 7.6. Ferritin 344. Total bilirubin 0.5, AST 54, ALT 33, and alkaline phosphatase 57. LDH 513. Troponin 0.002. C-reactive protein 20.3. Beta-natriuretic peptide 33. Total protein 7.9, albumin 2.9. Lipase of 1347. UA is showing 0 white cells. Chest x-ray is showing patchy bilateral airspace consolidation consistent with severe multifocal infiltrate. ASSESSMENT: This is a 45-year-old gentleman with no significant past medical history, who comes in with cough and shortness of breath and is found to have: 1. COVID-19 pneumonia most likely. 2. He is on 15 L of oxygen with O2 saturation of 96%. PLAN: 1. Continue ceftriaxone and azithromycin for now. 2. Continue dexamethasone day 4. 3. Continue isolation. 4. We will follow up cultures and adjust antibiotics accordingly. I would like to thank Dr. Fragoso for this consultation. Yun[place]untala Flavia Dickerson DR: Gabby JOB#: [id number] CC: Brian Fragoso MD; Fax#: [phone]
--- NOTE | 2020-09-04 | NUR ---
NURSE NOTES: Received patient awake, alert, verbal, using non-rebreather mask, no SOB noted.
--- NOTE | 2020-09-04 01:58 | Cardiology Report ---
APPROVED REPORT EKG Measurement Heart [id number] OK [id number] <Conclusion> Sinus tachycardia Left anterior fascicular block Abnormal ECG
[2020-09-04 04:00] VITALS: BP 127/79
--- NOTE | 2020-09-04 06:05 | NUR ---
NURSE HAND-OFF: Important Events on Shift:[]Desaturates when non-rebreather mask is not in use. Patient Status: []Stable vital signs Diet: [] Pending Orders: [] Pending Results/Labs:[] Pending MD notification:[] Latest Vital Signs: Temperature 96.6 , Pulse 83 , B/P 127 /79 , Respiratory Rate 20 , O2 SAT 93 , Bi-pap, O2 Flow Rate 15.0 . Vital Sign Comment: [] Latest Stone Fall Score: 20 Fall Risk: Low Risk Safety Measures: Call light Within Reach, Bed Alarm Zone 2, Side Rails Side Rails x2, Bed position Low and Locked. Fall Precautions: Yellow Socks Yellow Gown Patient Fall Education Report given to [].
[2020-09-04 08:00] VITALS: BP 125/80
--- NOTE | 2020-09-04 08:07 | NUR ---
NURSE NOTES: Patient awake, alert x4; on Non-Rebreather mask at 15 Liters, patient sats 93%; no sing of chest pain; IV Left For-Arm flushes well; side rials up x2, breaks engaged, bed at lowest position, bed side commod within reach; will keep monitoring.
[2020-09-04] MEDS: Azithromycin 250mg tab ORAL SCH (09:14)
[2020-09-04] MEDS: dexAMETHasone 10mg/ml Inj IV SCH (09:14)
[2020-09-04] MEDS: Enoxaparin 40mg Inj SUBQ SCH (09:16)
--- NOTE | 2020-09-04 11:11 | Infectious Diseases Prog Note ---
Assessment/Plan Assessment/Plan antibiotics : ceftriaxone, azithromycin A 1. covid 19 pneumonia on 15 liters O2 with 97 % saturation 2. respiratory failure P 1. continue dexamethasone day 5 2. d/c ceftriaxone, azithromycin 3. start remdesivir 4. continue isolation Subjective Constitutional: Denies: fever, chills Respiratory: Reports: shortness of breath - less, dry cough - less Gastrointestinal/Abdominal: Denies: nausea, vomiting, diarrhea Musculoskeletal: Denies: pain Allergies: Coded Allergies: No Known Allergies (Unverified , 08/31/20) Objective Last 24 Hour Vital Signs Date Time Temp Pulse Resp B/P (MAP) Pulse Ox O2 Delivery O2 Flow Rate FiO2 09/04/20 09:00 Non-Rebreather 15.0 09/04/20 08:00 97.5 86 18 125/80 (95) 97 09/04/20 04:00 96.6 83 20 127/79 (95) 93 09/03/20 21:00 Non-Rebreather 15.0 09/03/20 20:00 83 09/03/20 20:00 97.6 79 20 106/72 (83) 97 09/03/20 19:45 99 Non-Rebreather 15.0 100 09/03/20 16:00 80 09/03/20 16:00 97.9 88 20 111/76 (88) 99 09/03/20 12:00 83 09/03/20 12:00 99.3 88 22 109/71 (84) 96 Height (Feet): 5 Height (Inches): 5.00 Weight (Pounds): 176 Current Medications Medications (Trade) Dose Ordered Sig/Sami Route PRN Reason Start Time Stop Time Status Last Admin Dose Admin Acetaminophen (Tylenol) 650 mg Q6H PRN ORAL Mild Pain (Pain Scale 1-3) 08/31/20 12:15 09/30/20 12:14 Acetaminophen (Tylenol) 650 mg Q6H PRN ORAL For temp >100.4 08/31/20 12:30 09/30/20 12:29 Albuterol Sulfate (Proventil MDI) 2 puff TID INH 08/31/20 13:46 11/29/20 13:45 09/03/20 18:23 Azithromycin (Zithromax) 500 mg DAILY ORAL 09/01/20 09:00 09/08/20 08:59 09/04/20 09:14 Ceftriaxone Sodium 1 gm/ Dextrose 55 ml @ 110 mls/hr Q24H IVPB 08/31/20 15:00 09/07/20 14:59 09/03/20 14:27 Dexamethasone Sodium Phosphate (Decadron 10mg/ ml Inj) 6 mg DAILY IV 09/01/20 09:00 09/09/20 12:00 09/04/20 09:14 Enoxaparin Sodium (Lovenox) 40 mg DAILY SUBQ 09/01/20 09:00 11/30/20 08:59 09/04/20 09:16 Demetra Dickerson MD Sep 04, 2020 11:11
--- NOTE | 2020-09-04 11:58 | General Progress Note ---
Subjective Allergies: Coded Allergies: No Known Allergies (Unverified , 08/31/20) Subjective doing ok on 15 litre fio2 oriented Objective Last 24 Hour Vital Signs Date Time Temp Pulse Resp B/P (MAP) Pulse Ox O2 Delivery O2 Flow Rate FiO2 09/04/20 09:00 Non-Rebreather 15.0 09/04/20 08:00 97.5 86 18 125/80 (95) 97 09/04/20 04:00 96.6 83 20 127/79 (95) 93 09/03/20 21:00 Non-Rebreather 15.0 09/03/20 20:00 83 09/03/20 20:00 97.6 79 20 106/72 (83) 97 09/03/20 19:45 99 Non-Rebreather 15.0 100 09/03/20 16:00 80 09/03/20 16:00 97.9 88 20 111/76 (88) 99 09/03/20 12:00 83 09/03/20 12:00 99.3 88 22 109/71 (84) 96 Intake and Output 09/03/20 09/04/20 19:00 07:00 Intake Total 350 ml 420 ml Output Total 450 ml Balance -100 ml 420 ml Intake Oral 350 ml 420 ml Output Urine Total 450 ml # Voids 2 3 # Bowel Movements 2 Height (Feet): 5 Height (Inches): 5.00 Weight (Pounds): 176 General Appearance: alert EENT: PERRL/EOMI Neck: supple Cardiovascular: regular rhythm Respiratory/Chest: crackles/rales Abdomen: non tender, soft Extremities: non-tender Assessment/Plan Assessment/Plan: ac sob covid pna iv abx iv decadrone novnex regolar diet pulmo on case cont fio2 Brian Fragoso MD Sep 04, 2020 11:58
[2020-09-04 12:00] VITALS: BP 109/70
--- NOTE | 2020-09-04 12:50 | NUR ---
NURSE NOTES: RT notified regarding this patient's MDI; RT will come to give it.
[2020-09-04] MEDS ORDERED: Loading Dose:Remdesivir 200mg/NS 210ml IV SCH ×2 (13:00)
--- NOTE | 2020-09-04 13:44 | Pulmonology Progress Note ---
Subjective Interval Events: None new Constitutional: Denies: fever, chills HEENT: Repors: no symptoms Respiratory: Reports: no symptoms Cardiovascular: Reports: no symptoms Gastrointestinal/Abdominal: Denies: nausea, vomiting, diarrhea Musculoskeletal: Denies: pain Allergies: Coded Allergies: No Known Allergies (Unverified , 08/31/20) Objective Last 24 Hour Vital Signs Date Time Temp Pulse Resp B/P (MAP) Pulse Ox O2 Delivery O2 Flow Rate FiO2 09/04/20 12:00 98.1 91 19 109/70 (83) 97 09/04/20 09:00 Non-Rebreather 15.0 09/04/20 08:00 97.5 86 18 125/80 (95) 97 09/04/20 04:00 96.6 83 20 127/79 (95) 93 09/03/20 21:00 Non-Rebreather 15.0 09/03/20 20:00 83 09/03/20 20:00 97.6 79 20 106/72 (83) 97 09/03/20 19:45 99 Non-Rebreather 15.0 100 09/03/20 16:00 80 09/03/20 16:00 97.9 88 20 111/76 (88) 99 Intake and Output 09/03/20 09/04/20 19:00 07:00 Intake Total 350 ml 420 ml Output Total 450 ml Balance -100 ml 420 ml Intake Oral 350 ml 420 ml Output Urine Total 450 ml # Voids 2 3 # Bowel Movements 2 General Appearance: no acute distress HEENT: normocephalic Respiratory: decreased breath sounds Cardiovascular: normal peripheral pulses, normal rate Abdomen: normal bowel sounds Current Medications Medications (Trade) Dose Ordered Sig/Sami Route PRN Reason Start Time Stop Time Status Last Admin Dose Admin Acetaminophen (Tylenol) 650 mg Q6H PRN ORAL Mild Pain (Pain Scale 1-3) 08/31/20 12:15 09/30/20 12:14 Acetaminophen (Tylenol) 650 mg Q6H PRN ORAL For temp >100.4 08/31/20 12:30 09/30/20 12:29 Albuterol Sulfate (Proventil MDI) 2 puff TID INH 08/31/20 13:46 11/29/20 13:45 09/03/20 18:23 Dexamethasone Sodium Phosphate (Decadron 10mg/ ml Inj) 6 mg DAILY IV 09/01/20 09:00 09/09/20 12:00 09/04/20 09:14 Enoxaparin Sodium (Lovenox) 40 mg DAILY SUBQ 09/01/20 09:00 11/30/20 08:59 09/04/20 09:16 Remdesivir 100 mg/ Sodium Chloride 250 ml @ 250 mls/hr Q24H IV 09/05/20 13:00 09/08/20 13:59 Remdesivir 200 mg/ Sodium Chloride 250 ml @ 125 mls/hr ONCE IV 09/04/20 13:00 09/04/20 14:59 09/04/20 13:15 Assessment/Plan Assessment/Plan 1. COVID-19 pneumonia - COVID-19 PCR positive (08/31) - now off broad-spectrum Abx per ID - on remdesivir (09/04-) - f/u CXR as needed 2. Elevated inflammatory markers. - on Lovenox 3. Hypoxemia. - On decadron - on NRB saturating well; wean as tolerated; failed weaning again Continue current management The care for this patient was discussed with my supervising physician Time spent for this case was approximately 31 minutes Titi Zhang Sep 04, 2020 13:44
--- NOTE | 2020-09-04 15:27 | NUR ---
CASE MANAGEMENT:REVIEW 09/04/20 SI: COVID PNEUMONIA. 98.1 91 19 109/70 97% ON 15L/100% NRB IS: IV REMDESIVIR Q24 IV DECADRON QD LOVENOX SQ QD ALBUTEROL INH TID : NOW ON TELEMETRY UNIT DCP: FROM HOME
[2020-09-04 16:00] VITALS: BP 119/76
[2020-09-04] MEDS: Albuterol 90mcg Inhaler 8gm INH SCH (18:00)
--- NOTE | 2020-09-04 18:56 | NUR ---
NURSE HAND-OFF: Important Events on Shift: Patient Status: Diet: Pending Orders: Pending Results/Labs: Pending MD notification: Latest Vital Signs: Temperature 97.3 , Pulse 82 , B/P 119 /76 , Respiratory Rate 19 , O2 SAT 97 , Bi-pap, O2 Flow Rate 15.0 . Vital Sign Comment: Latest Stone Fall Score: 20 Fall Risk: Low Risk Safety Measures: Call light Within Reach, Bed Alarm Zone 2, Side Rails Side Rails x2, Bed position Low and Locked. Fall Precautions: Yellow Socks Yellow Gown Patient Fall Education Report given to .
[2020-09-04 20:06] VITALS: BP 120/74
[2020-09-05 00:22] VITALS: BP 119/79
[2020-09-05 04:00] VITALS: BP 124/85
--- NOTE | 2020-09-05 06:13 | NUR ---
NURSE HAND-OFF: Important Events on Shift:[]Still with non-rebreather mask Patient Status: []Stable Diet: [] Pending Orders: [] Pending Results/Labs:[] Pending MD notification:[] Latest Vital Signs: Temperature 97.7 , Pulse 69 , B/P 124 /85 , Respiratory Rate 18 , O2 SAT 97 , Bi-pap, O2 Flow Rate 15.0 . Vital Sign Comment: [] Latest Stone Fall Score: 20 Fall Risk: Low Risk Safety Measures: Call light Within Reach, Bed Alarm Zone 2, Side Rails Side Rails x2, Bed position Low and Locked. Fall Precautions: Yellow Socks Yellow Gown Patient Fall Education Report given to [].
[2020-09-05 06:29] LABS: BASOPHILS % (AUTO) 0.7 % (0.0-2.0); EOSINOPHILS % (AUTO) 0.7 % (0.0-3.0); MEAN CORPUSCULAR VOLUME 77 FL (80-99); MONOCYTES % (AUTO) 8.9 % (1.0-10.0); NEUTROPHILS % (AUTO) 70.8 % (45.0-75.0); PLATELET COUNT 484 K/UL (150-450); RED BLOOD COUNT 5.09 M/UL (4.70-6.10); RED CELL DISTRIBUTION WIDTH 16.5 % (11.6-14.8); WHITE BLOOD COUNT 7.7 K/UL (4.8-10.8)
[2020-09-05 06:46] LABS: ALANINE AMINOTRANSFERASE 70 U/L (12-78); ALBUMIN 2.5 G/DL (3.4-5.0); ALBUMIN/GLOBULIN RATIO 0.6 (1.0-2.7); ALKALINE PHOSPHATASE 57 U/L (46-116); ANION GAP 10 mmol/L (5-15); ASPARTATE AMINO TRANSFERASE 48 U/L (15-37); BILIRUBIN,TOTAL 0.4 MG/DL (0.2-1.0); BLOOD UREA NITROGEN 17 mg/dL (7-18); CALCIUM 8.2 MG/DL (8.5-10.1); CARBON DIOXIDE 24 MMOL/L (21-32); CHLORIDE 110 MMOL/L (98-107); CREATININE 0.7 MG/DL (0.55-1.30); POTASSIUM 3.7 MMOL/L (3.5-5.1); SODIUM 143 MMOL/L (136-145)
[2020-09-05 06:47] LABS: BILIRUBIN,DIRECT 0.1 MG/DL (0.0-0.3)
--- NOTE | 2020-09-05 07:13 | NUR ---
NURSE NOTES: Received hand-off report from Dez Salazar RN. Patient alert and oriented x4, able to state name, , current events. Breathing even and unlabored, respirations 19/min on non-rebreather 15L. Followed contact and droplet precautions, bed alarm on, bed in lowest and locked position, call light within reach, side rails upx2.
[2020-09-05 08:00] VITALS: BP 120/74
[2020-09-05] MEDS: dexAMETHasone 10mg/ml Inj IV SCH (08:36)
[2020-09-05] MEDS: Enoxaparin 40mg Inj SUBQ SCH (08:38)
--- NOTE | 2020-09-05 08:59 | Pulmonology Progress Note ---
Subjective Interval Events: None new Constitutional: Denies: fever, chills HEENT: Repors: no symptoms Respiratory: Reports: no symptoms Cardiovascular: Reports: no symptoms Gastrointestinal/Abdominal: Denies: nausea, vomiting, diarrhea Musculoskeletal: Denies: pain Allergies: Coded Allergies: No Known Allergies (Unverified , 08/31/20) Objective Last 24 Hour Vital Signs Date Time Temp Pulse Resp B/P (MAP) Pulse Ox O2 Delivery O2 Flow Rate FiO2 09/05/20 08:18 97 Non-Rebreather 15.0 100 09/05/20 04:00 97.7 69 18 124/85 (98) 97 09/05/20 00:22 98.4 64 17 119/79 (92) 97 09/04/20 20:16 Non-Rebreather 15.0 09/04/20 20:06 98.3 75 18 120/74 (89) 97 09/04/20 19:05 98 Non-Rebreather 15.0 100 09/04/20 16:00 97.3 82 19 119/76 (90) 97 09/04/20 12:00 98.1 91 19 109/70 (83) 97 09/04/20 09:00 Non-Rebreather 15.0 Intake and Output 09/04/20 09/05/20 19:00 07:00 Intake Total 1090 ml 360 ml Output Total 1300 ml Balance -210 ml 360 ml Intake Oral 840 ml IV Total 250 ml Other 360 ml Output Urine Total 1300 ml # Voids 3 General Appearance: no acute distress HEENT: normocephalic Respiratory: decreased breath sounds Cardiovascular: normal peripheral pulses, normal rate Abdomen: normal bowel sounds Laboratory Tests 09/05/20 05:54: White Blood Count 7.7, Red Blood Count 5.09, Hemoglobin 12.0L, Hematocrit 39.0L, Mean Corpuscular Volume 77L, Mean Corpuscular Hemoglobin 23.6L, Mean Corpuscular Hemoglobin Concent 30.8L, Red Cell Distribution Width 16.5H, Platelet Count 484H , Mean Platelet Volume 7.3, Neutrophils (%) (Auto) 70.8, Lymphocytes (%) (Auto) 19.0L, Monocytes (%) (Auto) 8.9, Eosinophils (%) (Auto) 0.7, Basophils (%) (Auto) 0.7, Sodium Level 143, Potassium Level 3.7, Chloride Level 110H, Carbon Dioxide Level 24, Anion Gap 10, Blood Urea Nitrogen 17, Creatinine 0.7, Estimat Glomerular Filtration Rate > 60, Glucose Level 90, Calcium Level 8.2L, Total Bilirubin 0.4, Direct Bilirubin 0.1, Aspartate Amino Transf (AST/SGOT) 48H, Alanine Aminotransferase (ALT/SGPT) 70, Alkaline Phosphatase 57, Total Protein 6.9, Albumin 2.5L, Globulin 4.4, Albumin/Globulin Ratio 0.6L Current Medications Medications (Trade) Dose Ordered Sig/Sami Route PRN Reason Start Time Stop Time Status Last Admin Dose Admin Acetaminophen (Tylenol) 650 mg Q6H PRN ORAL Mild Pain (Pain Scale 1-3) 08/31/20 12:15 09/30/20 12:14 Acetaminophen (Tylenol) 650 mg Q6H PRN ORAL For temp >100.4 08/31/20 12:30 09/30/20 12:29 Albuterol Sulfate (Proventil MDI) 2 puff TID INH 08/31/20 13:46 11/29/20 13:45 09/03/20 18:23 Dexamethasone Sodium Phosphate (Decadron 10mg/ ml Inj) 6 mg DAILY IV 09/01/20 09:00 09/09/20 12:00 09/05/20 08:36 Enoxaparin Sodium (Lovenox) 40 mg DAILY SUBQ 09/01/20 09:00 11/30/20 08:59 09/05/20 08:38 Remdesivir 100 mg/ Sodium Chloride 250 ml @ 250 mls/hr Q24H IV 09/05/20 13:00 09/08/20 13:59 Assessment/Plan Assessment/Plan 1. COVID-19 pneumonia - COVID-19 PCR positive (08/31) - now off broad-spectrum Abx per ID - on remdesivir (09/04-) - f/u CXR as needed 2. Elevated inflammatory markers. - on Lovenox 3. Hypoxemia. - On decadron - on NRB saturating well; wean as tolerated; failed weaning again Continue current management The care for this patient was discussed with my supervising physician Time spent for this case was approximately 31 minutes Titi Zhang Sep 05, 2020 08:59
[2020-09-05] MEDS: Albuterol 90mcg Inhaler 8gm INH SCH ×3 (11:33→17:48)
[2020-09-05 12:00] VITALS: BP 131/62
[2020-09-05] MEDS: Maintenance Dose:Remdesivir 100mg/NS 230ml x 4 Doses IV SCH ×2 (13:06)
--- NOTE | 2020-09-05 13:09 | General Progress Note ---
Subjective Allergies: Coded Allergies: No Known Allergies (Unverified , 08/31/20) Subjective doing ok on 15 litre fio2 oriented Objective Last 24 Hour Vital Signs Date Time Temp Pulse Resp B/P (MAP) Pulse Ox O2 Delivery O2 Flow Rate FiO2 09/05/20 11:46 88 20 98 Non-Rebreather 100 09/05/20 08:18 97 Non-Rebreather 15.0 100 09/05/20 08:00 98.3 69 18 120/74 (89) 97 09/05/20 04:00 97.7 69 18 124/85 (98) 97 09/05/20 00:22 98.4 64 17 119/79 (92) 97 09/04/20 20:16 Non-Rebreather 15.0 09/04/20 20:06 98.3 75 18 120/74 (89) 97 09/04/20 19:05 98 Non-Rebreather 15.0 100 09/04/20 16:00 97.3 82 19 119/76 (90) 97 Intake and Output 09/04/20 09/05/20 19:00 07:00 Intake Total 1090 ml 360 ml Output Total 1300 ml Balance -210 ml 360 ml Intake Oral 840 ml IV Total 250 ml Other 360 ml Output Urine Total 1300 ml # Voids 3 Laboratory Tests 09/05/20 05:54: White Blood Count 7.7, Red Blood Count 5.09, Hemoglobin 12.0L, Hematocrit 39.0L, Mean Corpuscular Volume 77L, Mean Corpuscular Hemoglobin 23.6L, Mean Corpuscular Hemoglobin Concent 30.8L, Red Cell Distribution Width 16.5H, Platelet Count 484H , Mean Platelet Volume 7.3, Neutrophils (%) (Auto) 70.8, Lymphocytes (%) (Auto) 19.0L, Monocytes (%) (Auto) 8.9, Eosinophils (%) (Auto) 0.7, Basophils (%) ( Auto) 0.7, Sodium Level 143, Potassium Level 3.7, Chloride Level 110H, Carbon Dioxide Level 24, Anion Gap 10, Blood Urea Nitrogen 17, Creatinine 0.7, Estimat Glomerular Filtration Rate > 60, Glucose Level 90, Calcium Level 8.2L, Total Bilirubin 0.4, Direct Bilirubin 0.1, Aspartate Amino Transf (AST/SGOT) 48H, Alanine Aminotransferase (ALT/SGPT) 70, Alkaline Phosphatase 57, Total Protein 6.9, Albumin 2.5L, Globulin 4.4, Albumin/Globulin Ratio 0.6L Height (Feet): 5 Height (Inches): 5.00 Weight (Pounds): 176 General Appearance: alert EENT: PERRL/EOMI Neck: supple Cardiovascular: regular rhythm Respiratory/Chest: rhonchi - bilaterally Abdomen: non tender, soft Extremities: non-tender Assessment/Plan Assessment/Plan: ac sob covid pna iv abx iv decadrone novnex regolar diet pulmo on case cont fio2 Brian Fragoso MD Sep 05, 2020 13:09
--- NOTE | 2020-09-05 13:32 | NUR ---
RESPIRATORY NOTE: pt switched to venti mask 10 LPM 50% fio2 from NRB 15 LPM. Patient desaturates to 88%, placed back on NRB 15 LPM. Pt saturating 94-98% SpO2
[2020-09-05 16:00] VITALS: BP 112/55
--- NOTE | 2020-09-05 16:06 | NUR ---
CASE MANAGEMENT:REVIEW 09/05/20 SI: COVID PNEUMONIA. 98.1 91 19 109/70 97% ON 15L/100% NRB PLT+484 IS: IV REMDESIVIR Q24 IV DECADRON QD LOVENOX SQ QD ALBUTEROL INH TID : NOW ON TELEMETRY UNIT DCP: FROM HOME
--- NOTE | 2020-09-05 16:24 | Infectious Diseases Prog Note ---
Assessment/Plan Assessment/Plan A 1. COVID19 pneumonia 2. respiratory failure 3. Pancreatitis P 1. continue dexamethasone day 6 2. Continue remdesivir 3. continue isolation Subjective ROS Limited/Unobtainable: Yes Constitutional: Denies: fever Respiratory: Reports: shortness of breath, dry cough Cardiovascular: Denies: chest pain Allergies: Coded Allergies: No Known Allergies (Unverified , 08/31/20) Objective Last 24 Hour Vital Signs Date Time Temp Pulse Resp B/P (MAP) Pulse Ox O2 Delivery O2 Flow Rate FiO2 09/05/20 11:46 88 20 98 Non-Rebreather 100 09/05/20 08:18 97 Non-Rebreather 15.0 100 09/05/20 08:00 98.3 69 18 120/74 (89) 97 09/05/20 04:00 97.7 69 18 124/85 (98) 97 09/05/20 00:22 98.4 64 17 119/79 (92) 97 09/04/20 20:16 Non-Rebreather 15.0 09/04/20 20:06 98.3 75 18 120/74 (89) 97 09/04/20 19:05 98 Non-Rebreather 15.0 100 Height (Feet): 5 Height (Inches): 5.00 Weight (Pounds): 176 General Appearance: no acute distress HEENT: mucous membranes moist Respiratory/Chest: lungs clear, other Cardiovascular: normal rate Abdomen: soft, non tender Extremities: no edema Neurologic/Psychiatric: alert, responsive Laboratory Tests Test 09/05/20 05:54 White Blood Count 7.7 K/UL (4.8-10.8) Red Blood Count 5.09 M/UL (4.70-6.10) Hemoglobin 12.0 G/DL (14.2-18.0) L Hematocrit 39.0 % (42.0-52.0) L Mean Corpuscular Volume 77 FL (80-99) L Mean Corpuscular Hemoglobin 23.6 PG (27.0-31.0) L Mean Corpuscular Hemoglobin Concent 30.8 G/DL (32.0-36.0) L Red Cell Distribution Width 16.5 % (11.6-14.8) H Platelet Count 484 K/UL (150-450) H Mean Platelet Volume 7.3 FL (6.5-10.1) Neutrophils (%) (Auto) 70.8 % (45.0-75.0) Lymphocytes (%) (Auto) 19.0 % (20.0-45.0) L Monocytes (%) (Auto) 8.9 % (1.0-10.0) Eosinophils (%) (Auto) 0.7 % (0.0-3.0) Basophils (%) (Auto) 0.7 % (0.0-2.0) Sodium Level 143 MMOL/L (136-145) Potassium Level 3.7 MMOL/L (3.5-5.1) Chloride Level 110 MMOL/L (98-107) H Carbon Dioxide Level 24 MMOL/L (21-32) Anion Gap 10 mmol/L (5-15) Blood Urea Nitrogen 17 mg/dL (7-18) Creatinine 0.7 MG/DL (0.55-1.30) Estimat Glomerular Filtration Rate > 60 mL/min (>60) Glucose Level 90 MG/DL (74-106) Calcium Level 8.2 MG/DL (8.5-10.1) L Total Bilirubin 0.4 MG/DL (0.2-1.0) Direct Bilirubin 0.1 MG/DL (0.0-0.3) Aspartate Amino Transf (AST/SGOT) 48 U/L (15-37) H Alanine Aminotransferase (ALT/SGPT) 70 U/L (12-78) Alkaline Phosphatase 57 U/L (46-116) Total Protein 6.9 G/DL (6.4-8.2) Albumin 2.5 G/DL (3.4-5.0) L Globulin 4.4 g/dL Albumin/Globulin Ratio 0.6 (1.0-2.7) L Current Medications Medications (Trade) Dose Ordered Sig/Sami Route PRN Reason Start Time Stop Time Status Last Admin Dose Admin Acetaminophen (Tylenol) 650 mg Q6H PRN ORAL Mild Pain (Pain Scale 1-3) 08/31/20 12:15 09/30/20 12:14 Acetaminophen (Tylenol) 650 mg Q6H PRN ORAL For temp >100.4 08/31/20 12:30 09/30/20 12:29 Albuterol Sulfate (Proventil MDI) 2 puff TID INH 08/31/20 13:46 11/29/20 13:45 09/05/20 13:07 Dexamethasone Sodium Phosphate (Decadron 10mg/ ml Inj) 6 mg DAILY IV 09/01/20 09:00 09/09/20 12:00 09/05/20 08:36 Enoxaparin Sodium (Lovenox) 40 mg DAILY SUBQ 09/01/20 09:00 11/30/20 08:59 09/05/20 08:38 Remdesivir 100 mg/ Sodium Chloride 250 ml @ 250 mls/hr Q24H IV 09/05/20 13:00 09/08/20 13:59 09/05/20 13:06 Ady Kong MD Sep 05, 2020 16:24
--- NOTE | 2020-09-05 19:00 | NUR ---
NURSE HAND-OFF: Important Events on Shift: Respiratory therapist attempted to wean patient off non-rebreather to venturi mask but desaturated to88%. Patient back on non-rebreather. Patient Status: stable condition, breathing even and unlabored, resp 20/min on non-rebreather Diet: regular Pending Orders: [] Pending Results/Labs:[] Pending MD notification:[] Latest Vital Signs: Temperature 98.7 , Pulse 85 , B/P 112 /55 , Respiratory Rate 20 , O2 SAT 99 , Bi-pap, O2 Flow Rate 15.0 . Vital Sign Comment: [] Latest Stone Fall Score: 20 Fall Risk: Low Risk Safety Measures: Call light Within Reach, Bed Alarm Zone 2, Side Rails Side Rails x2, Bed position Low and Locked. Fall Precautions: Yellow Socks Yellow Gown Patient Fall Education Report given to Mariana Flores RN.
--- NOTE | 2020-09-05 19:30 | NUR ---
NURSE NOTES: Received patient in bed. A&OX4. Non rebreather mask on with 15L. IV site patent and intact. Bed in lowest position. Call light within reach. Will continue to monitor.
[2020-09-05 20:00] VITALS: BP 115/70
[2020-09-06] VITALS (7 sets, daily range): BP systolic 107–124; BP diastolic 65–80
[2020-09-06 06:10] LABS: BASOPHILS % (AUTO) 0.7 % (0.0-2.0); EOSINOPHILS % (AUTO) 1.9 % (0.0-3.0); HEMATOCRIT 40.3 % (42.0-52.0); HEMOGLOBIN 12.1 G/DL (14.2-18.0); LYMPHOCYTES % (AUTO) 22.1 % (20.0-45.0); MEAN CORPUSCULAR VOLUME 77 FL (80-99); MONOCYTES % (AUTO) 8.7 % (1.0-10.0); NEUTROPHILS % (AUTO) 66.6 % (45.0-75.0); PLATELET COUNT 552 K/UL (150-450); RED BLOOD COUNT 5.22 M/UL (4.70-6.10); RED CELL DISTRIBUTION WIDTH 16.9 % (11.6-14.8); WHITE BLOOD COUNT 8.1 K/UL (4.8-10.8)
[2020-09-06 06:51] LABS: ALANINE AMINOTRANSFERASE 88 U/L (12-78); ALBUMIN 2.5 G/DL (3.4-5.0); ALBUMIN/GLOBULIN RATIO 0.6 (1.0-2.7); ALKALINE PHOSPHATASE 61 U/L (46-116); ANION GAP 9 mmol/L (5-15); ASPARTATE AMINO TRANSFERASE 54 U/L (15-37); BILIRUBIN,DIRECT < 0.1 MG/DL (0.0-0.3); BILIRUBIN,TOTAL 0.4 MG/DL (0.2-1.0); BLOOD UREA NITROGEN 19 mg/dL (7-18); CARBON DIOXIDE 24 MMOL/L (21-32); CHLORIDE 110 MMOL/L (98-107); CREATININE 0.7 MG/DL (0.55-1.30); POTASSIUM 3.9 MMOL/L (3.5-5.1); SODIUM 143 MMOL/L (136-145)
--- NOTE | 2020-09-06 07:20 | NUR ---
NURSE NOTES: Received patient in bed. Patient awake, alert oriented X4. on Non rebreather mask on with 15L. HL patent and intact.on contact droplet precaution, Bed in lowest position. Call light within reach. Will continue to monitor. ryan loyd
--- NOTE | 2020-09-06 07:52 | NUR ---
NURSE HAND-OFF: Important Events on Shift: Non rebreather mask with 15L, O2sat 100% Patient Status: Diet: Regular Pending Orders: Pending Results/Labs: Pending MD notification: Latest Vital Signs: Temperature 97.7 , Pulse 75 , B/P 107 /70 , Respiratory Rate 18 , O2 SAT 100 , Bi-pap, O2 Flow Rate 15.0 . Vital Sign Comment: Latest Stone Fall Score: 20 Fall Risk: Low Risk Safety Measures: Call light Within Reach, Bed Alarm Zone 2, Side Rails Side Rails x2, Bed position Low and Locked. Fall Precautions: Yellow Socks Yellow Gown Patient Fall Education Report given to Suzanna DONOVAN.
[2020-09-06] MEDS: Enoxaparin 40mg Inj SUBQ SCH (08:27)
[2020-09-06] MEDS: dexAMETHasone 10mg/ml Inj IV SCH (08:27)
[2020-09-06] MEDS: Albuterol 90mcg Inhaler 8gm INH SCH ×3 (08:28→17:13)
--- NOTE | 2020-09-06 09:26 | Pulmonology Progress Note ---
Subjective ROS Limited/Unobtainable: Yes Interval Events: None new Constitutional: Denies: fever HEENT: Repors: no symptoms Respiratory: Reports: no symptoms Cardiovascular: Reports: no symptoms Gastrointestinal/Abdominal: Denies: nausea, vomiting, diarrhea Musculoskeletal: Denies: pain Allergies: Coded Allergies: No Known Allergies (Unverified , 08/31/20) Objective Last 24 Hour Vital Signs Date Time Temp Pulse Resp B/P (MAP) Pulse Ox O2 Delivery O2 Flow Rate FiO2 09/06/20 08:10 97.7 80 18 112/74 (87) 97 09/06/20 04:00 97.7 75 18 107/70 (82) 100 09/06/20 00:00 97.9 69 18 114/71 (85) 93 09/05/20 21:00 Non-Rebreather 15.0 09/05/20 20:00 98.3 77 18 115/70 (85) 98 09/05/20 19:30 96 Non-Rebreather 15.0 100 09/05/20 16:00 98.7 85 20 112/55 (74) 99 09/05/20 12:00 98.8 83 20 131/62 (85) 99 09/05/20 11:46 88 20 98 Non-Rebreather 100 Intake and Output 09/05/20 09/06/20 19:00 07:00 Intake Total 1200 ml 360 ml Output Total 800 ml Balance 400 ml 360 ml Intake Oral 1200 ml Other 360 ml Output Urine Total 800 ml # Voids 2 General Appearance: no acute distress HEENT: normocephalic Respiratory: decreased breath sounds Cardiovascular: normal peripheral pulses, normal rate Abdomen: normal bowel sounds Laboratory Tests 09/06/20 05:25: White Blood Count 8.1, Red Blood Count 5.22, Hemoglobin 12.1L, Hematocrit 40.3L, Mean Corpuscular Volume 77L, Mean Corpuscular Hemoglobin 23.1L, Mean Corpuscular Hemoglobin Concent 30.0L, Red Cell Distribution Width 16.9H, Platelet Count 552H , Mean Platelet Volume 7.3, Neutrophils (%) (Auto) 66.6, Lymphocytes (%) (Auto) 22.1, Monocytes (%) (Auto) 8.7, Eosinophils (%) (Auto) 1.9, Basophils (%) (Auto) 0.7, Sodium Level 143, Potassium Level 3.9, Chloride Level 110H, Carbon Dioxide Level 24, Anion Gap 9, Blood Urea Nitrogen 19H, Creatinine 0.7, Estimat Glomerular Filtration Rate > 60, Glucose Level 87, Calcium Level 8.0L, Total Bilirubin 0.4, Direct Bilirubin < 0.1, Aspartate Amino Transf (AST/SGOT) 54H, A lanine Aminotransferase (ALT/SGPT) 88H, Alkaline Phosphatase 61, Total Protein 6.9, Albumin 2.5L, Globulin 4.4, Albumin/Globulin Ratio 0.6L Current Medications Medications (Trade) Dose Ordered Sig/Sami Route PRN Reason Start Time Stop Time Status Last Admin Dose Admin Acetaminophen (Tylenol) 650 mg Q6H PRN ORAL Mild Pain (Pain Scale 1-3) 08/31/20 12:15 09/30/20 12:14 Acetaminophen (Tylenol) 650 mg Q6H PRN ORAL For temp >100.4 08/31/20 12:30 09/30/20 12:29 Albuterol Sulfate (Proventil MDI) 2 puff TID INH 08/31/20 13:46 11/29/20 13:45 09/06/20 08:28 Dexamethasone Sodium Phosphate (Decadron 10mg/ ml Inj) 6 mg DAILY IV 09/01/20 09:00 09/09/20 12:00 09/06/20 08:27 Enoxaparin Sodium (Lovenox) 40 mg DAILY SUBQ 09/01/20 09:00 11/30/20 08:59 09/06/20 08:27 Remdesivir 100 mg/ Sodium Chloride 250 ml @ 250 mls/hr Q24H IV 09/05/20 13:00 09/08/20 13:59 09/05/20 13:06 Assessment/Plan Assessment/Plan 1. COVID-19 pneumonia - COVID-19 PCR positive (08/31) - now off broad-spectrum Abx per ID - on remdesivir (09/04-) - f/u CXR as needed 2. Elevated inflammatory markers. - on Lovenox 3. Hypoxemia. - On decadron (09/01-) - on NRB saturating well; wean as tolerated; failed weaning again Continue current management The care for this patient was discussed with my supervising physician Time spent for this case was approximately 31 minutes Titi Zhang Sep 06, 2020 09:26
--- NOTE | 2020-09-06 09:54 | NUR ---
RD ASSESSMENT & RECOMMENDATIONS SEE CARE ACTIVITY FOR COMPLETE ASSESSMENT DAILY ESTIMATED NEEDS: Needs based on Pulmonary 66kg abw 25-30 kcals/kg 2982-7873 total kcals 1-1.5 g protein/kg 66-99 g total protein 25-30 mL/kg 5529-5012 total fluid mLs NUTRITION DIAGNOSIS: Altered nutrition related lab values r/t clinical status as evidenced by elev BUN(19), elev LFT's, covid ++, on NRB mask. CURRENT DIET: Regular PO DIET RECOMMENDATIONS: Regular diet, texture as tolerated ADDITIONAL RECOMMENDATIONS: 1) Monitor for bipap use, ability to maintain adequate nutritional intake 2) On decadron, monitor BG, need for niss 3) Daily calibrated bed scale wts
--- NOTE | 2020-09-06 10:26 | Infectious Diseases Prog Note ---
Assessment/Plan Assessment/Plan antibiotics : remdesivir A 1. covid 19 pneumonia on 15 liters O2 with 97 % saturation 2. respiratory failure P 1. continue dexamethasone day 7 2. continue remdesivir day 3 3. continue isolation Subjective Constitutional: Denies: fever, chills Respiratory: Reports: shortness of breath, dry cough - mild Gastrointestinal/Abdominal: Denies: nausea, vomiting, diarrhea Musculoskeletal: Reports: pain Allergies: Coded Allergies: No Known Allergies (Unverified , 08/31/20) Objective Last 24 Hour Vital Signs Date Time Temp Pulse Resp B/P (MAP) Pulse Ox O2 Delivery O2 Flow Rate FiO2 09/06/20 08:15 Non-Rebreather 15.0 09/06/20 08:10 97.7 80 18 112/74 (87) 97 09/06/20 04:00 97.7 75 18 107/70 (82) 100 09/06/20 00:00 97.9 69 18 114/71 (85) 93 09/05/20 21:00 Non-Rebreather 15.0 09/05/20 20:00 98.3 77 18 115/70 (85) 98 09/05/20 19:30 96 Non-Rebreather 15.0 100 09/05/20 16:00 98.7 85 20 112/55 (74) 99 09/05/20 12:00 98.8 83 20 131/62 (85) 99 09/05/20 11:46 88 20 98 Non-Rebreather 100 Height (Feet): 5 Height (Inches): 5.00 Weight (Pounds): 176 Laboratory Tests Test 09/06/20 05:25 White Blood Count 8.1 K/UL (4.8-10.8) Red Blood Count 5.22 M/UL (4.70-6.10) Hemoglobin 12.1 G/DL (14.2-18.0) L Hematocrit 40.3 % (42.0-52.0) L Mean Corpuscular Volume 77 FL (80-99) L Mean Corpuscular Hemoglobin 23.1 PG (27.0-31.0) L Mean Corpuscular Hemoglobin Concent 30.0 G/DL (32.0-36.0) L Red Cell Distribution Width 16.9 % (11.6-14.8) H Platelet Count 552 K/UL (150-450) H Mean Platelet Volume 7.3 FL (6.5-10.1) Neutrophils (%) (Auto) 66.6 % (45.0-75.0) Lymphocytes (%) (Auto) 22.1 % (20.0-45.0) Monocytes (%) (Auto) 8.7 % (1.0-10.0) Eosinophils (%) (Auto) 1.9 % (0.0-3.0) Basophils (%) (Auto) 0.7 % (0.0-2.0) Sodium Level 143 MMOL/L (136-145) Potassium Level 3.9 MMOL/L (3.5-5.1) Chloride Level 110 MMOL/L (98-107) H Carbon Dioxide Level 24 MMOL/L (21-32) Anion Gap 9 mmol/L (5-15) Blood Urea Nitrogen 19 mg/dL (7-18) H Creatinine 0.7 MG/DL (0.55-1.30) Estimat Glomerular Filtration Rate > 60 mL/min (>60) Glucose Level 87 MG/DL (74-106) Calcium Level 8.0 MG/DL (8.5-10.1) L Total Bilirubin 0.4 MG/DL (0.2-1.0) Direct Bilirubin < 0.1 MG/DL (0.0-0.3) Aspartate Amino Transf (AST/SGOT) 54 U/L (15-37) H Alanine Aminotransferase (ALT/SGPT) 88 U/L (12-78) H Alkaline Phosphatase 61 U/L (46-116) Total Protein 6.9 G/DL (6.4-8.2) Albumin 2.5 G/DL (3.4-5.0) L Globulin 4.4 g/dL Albumin/Globulin Ratio 0.6 (1.0-2.7) L Current Medications Medications (Trade) Dose Ordered Sig/Sami Route PRN Reason Start Time Stop Time Status Last Admin Dose Admin Acetaminophen (Tylenol) 650 mg Q6H PRN ORAL Mild Pain (Pain Scale 1-3) 08/31/20 12:15 09/30/20 12:14 Acetaminophen (Tylenol) 650 mg Q6H PRN ORAL For temp >100.4 08/31/20 12:30 09/30/20 12:29 Albuterol Sulfate (Proventil MDI) 2 puff TID INH 08/31/20 13:46 11/29/20 13:45 09/06/20 08:28 Dexamethasone Sodium Phosphate (Decadron 10mg/ ml Inj) 6 mg DAILY IV 09/01/20 09:00 09/09/20 12:00 09/06/20 08:27 Enoxaparin Sodium (Lovenox) 40 mg DAILY SUBQ 09/01/20 09:00 11/30/20 08:59 09/06/20 08:27 Remdesivir 100 mg/ Sodium Chloride 250 ml @ 250 mls/hr Q24H IV 09/05/20 13:00 09/08/20 13:59 09/05/20 13:06 Demetra Dickerson MD Sep 06, 2020 10:26
--- NOTE | 2020-09-06 11:55 | NUR ---
CASE MANAGEMENT:REVIEW 09/06/20 SI: COVID PNEUMONIA. 97.7 80 18 112/74 97% ON 15L/100% NRB H/H-12.1/40.3 IS: IV REMDESIVIR Q24 (08/30) IV DECADRON QD LOVENOX SQ QD ALBUTEROL INH TID : NOW ON TELEMETRY UNIT DCP: FROM HOME
--- NOTE | 2020-09-06 11:57 | General Progress Note ---
Subjective Allergies: Coded Allergies: No Known Allergies (Unverified , 08/31/20) Subjective doing ok on 15 litre fio2 oriented Objective Last 24 Hour Vital Signs Date Time Temp Pulse Resp B/P (MAP) Pulse Ox O2 Delivery O2 Flow Rate FiO2 09/06/20 08:15 Non-Rebreather 15.0 09/06/20 08:10 97.7 80 18 112/74 (87) 97 09/06/20 04:00 97.7 75 18 107/70 (82) 100 09/06/20 00:00 97.9 69 18 114/71 (85) 93 09/05/20 21:00 Non-Rebreather 15.0 09/05/20 20:00 98.3 77 18 115/70 (85) 98 09/05/20 19:30 96 Non-Rebreather 15.0 100 09/05/20 16:00 98.7 85 20 112/55 (74) 99 09/05/20 12:00 98.8 83 20 131/62 (85) 99 Intake and Output 09/05/20 09/06/20 19:00 07:00 Intake Total 1200 ml 360 ml Output Total 800 ml Balance 400 ml 360 ml Intake Oral 1200 ml Other 360 ml Output Urine Total 800 ml # Voids 2 Laboratory Tests 09/06/20 05:25: White Blood Count 8.1, Red Blood Count 5.22, Hemoglobin 12.1L, Hematocrit 40.3L, Mean Corpuscular Volume 77L, Mean Corpuscular Hemoglobin 23.1L, Mean Corpuscular Hemoglobin Concent 30.0L, Red Cell Distribution Width 16.9H, Platelet Count 552H , Mean Platelet Volume 7.3, Neutrophils (%) (Auto) 66.6, Lymphocytes (%) (Auto) 22.1, Monocytes (%) (Auto) 8.7, Eosinophils (%) (Auto) 1.9, Basophils (%) (Auto) 0.7, Sodium Level 143, Potassium Level 3.9, Chloride Level 110H, Carbon Dioxide Level 24, Anion Gap 9, Blood Urea Nitrogen 19H, Creatinine 0.7, Estimat Glomerular Filtration Rate > 60, Glucose Level 87, Calcium Level 8.0L, Total Bilirubin 0.4, Direct Bilirubin < 0.1, Aspartate Amino Transf (AST/SGOT) 54H, Alanine Aminotransferase (ALT/SGPT) 88H, Alkaline Phosphatase 61, Total Protein 6.9, Albumin 2.5L, Globulin 4.4, Albumin/Globulin Ratio 0.6L Height (Feet): 5 Height (Inches): 5.00 Weight (Pounds): 176 General Appearance: alert EENT: PERRL/EOMI Neck: supple Cardiovascular: normal rate Respiratory/Chest: lungs clear, normal breath sounds, no respiratory distress, rhonchi - bilaterally Abdomen: non tender, soft Assessment/Plan Assessment/Plan: ac sob covid pna iv abx iv decadrone novnex regolar diet pulmo on case cont fio2 Brian Fragoso MD Sep 06, 2020 11:57
[2020-09-06] MEDS: Maintenance Dose:Remdesivir 100mg/NS 230ml x 4 Doses IV SCH ×2 (13:14)
--- NOTE | 2020-09-06 19:15 | NUR ---
NURSE HAND-OFF: Important Events on Shift:still on nonrebreather mask at 15 LPM, Tried to wean patient desat to 88% while eating] Patient Status: [on going] Diet: [regular diet] Pending Orders: [labs ] Pending Results/Labs:[none] Pending MD notification:[none] Latest Vital Signs: Temperature 97.0 , Pulse 95 , B/P 109 /65 , Respiratory Rate 16 , O2 SAT 95 , Bi-pap, O2 Flow Rate 15.0 . Vital Sign Comment: [stable] Latest Stone Fall Score: 20 Fall Risk: Low Risk Safety Measures: Call light Within Reach, Bed Alarm Zone 2, Side Rails Side Rails x2, Bed position Low and Locked. Fall Precautions: Yellow Socks Yellow Gown Patient Fall Education Report given to [evgeny DONOVAN].
--- NOTE | 2020-09-06 20:15 | NUR ---
NURSE NOTES: Patient in bed, awake, alert and verbally responsive. Czech speaking, able to make needs known. No complaint of pain or discomfort noted. Respiration is even, on nonrebreather mask 15 L, saturation 94% at the moment. Without nonrebreather patient saturation 88%. Will reassess. Bed in low and locked position. Skin is warm and dry to touch. Abdomen is soft and non distended. Call light is at bedside. Will continue plan of care.
[2020-09-07 04:00] VITALS: BP 125/76
[2020-09-07 06:47] LABS: BASOPHILS % (AUTO) 0.6 % (0.0-2.0); EOSINOPHILS % (AUTO) 1.8 % (0.0-3.0); HEMATOCRIT 39.9 % (42.0-52.0); HEMOGLOBIN 12.2 G/DL (14.2-18.0); LYMPHOCYTES % (AUTO) 21.2 % (20.0-45.0); MEAN CORPUSCULAR VOLUME 77 FL (80-99); MONOCYTES % (AUTO) 7.9 % (1.0-10.0); NEUTROPHILS % (AUTO) 68.4 % (45.0-75.0); PLATELET COUNT 575 K/UL (150-450); RED CELL DISTRIBUTION WIDTH 17.2 % (11.6-14.8); WHITE BLOOD COUNT 7.7 K/UL (4.8-10.8)
--- NOTE | 2020-09-07 07:20 | NUR ---
NURSE HAND-OFF: Important Events on Shift:WNL Patient Status: Diet: REG Pending Orders: Pending Results/Labs: Pending MD notification: Latest Vital Signs: Temperature 98.6 , Pulse 72 , B/P 125 /76 , Respiratory Rate 18 , O2 SAT 98 , Bi-pap, O2 Flow Rate 15.0 . Vital Sign Comment: Latest Stone Fall Score: 20 Fall Risk: Low Risk Safety Measures: Call light Within Reach, Bed Alarm Zone 2, Side Rails Side Rails x2, Bed position Low and Locked. Fall Precautions: Yellow Socks Yellow Gown Patient Fall Education Report given to Zhao Collier.
[2020-09-07 07:23] LABS: ALANINE AMINOTRANSFERASE 88 U/L (12-78); ALBUMIN 2.5 G/DL (3.4-5.0); ALBUMIN/GLOBULIN RATIO 0.6 (1.0-2.7); ALKALINE PHOSPHATASE 66 U/L (46-116); ANION GAP 9 mmol/L (5-15); ASPARTATE AMINO TRANSFERASE 44 U/L (15-37); BILIRUBIN,DIRECT < 0.1 MG/DL (0.0-0.3); BILIRUBIN,TOTAL 0.4 MG/DL (0.2-1.0); BLOOD UREA NITROGEN 20 mg/dL (7-18); CARBON DIOXIDE 24 MMOL/L (21-32); CHLORIDE 110 MMOL/L (98-107); CREATININE 0.7 MG/DL (0.55-1.30); POTASSIUM 3.9 MMOL/L (3.5-5.1); SODIUM 143 MMOL/L (136-145)
--- NOTE | 2020-09-07 07:26 | NUR ---
NURSE NOTES: Received pt from [facility] Collier, pt was resting, no c/o pain at this time, no acute distress. call light w/in reach.
[2020-09-07 08:00] VITALS: BP 102/62
[2020-09-07] MEDS: Albuterol 90mcg Inhaler 8gm INH SCH ×3 (08:09→18:31)
[2020-09-07] MEDS: dexAMETHasone 10mg/ml Inj IV SCH (08:09)
[2020-09-07] MEDS: Enoxaparin 40mg Inj SUBQ SCH (08:17)
--- NOTE | 2020-09-07 09:30 | NUR ---
NURSE NOTES: reported PA, regarding his o2 sat. stayed with non rebreather at this time.
--- NOTE | 2020-09-07 09:51 | NUR ---
NURSE NOTES: Tried to titrate non breather mask to ventri mask(50%) but o2 saturation was 90%. stayed with non breather mask at this time
--- NOTE | 2020-09-07 11:15 | Infectious Diseases Prog Note ---
Assessment/Plan Assessment/Plan A 1. COVID19 pneumonia 2. respiratory failure 3. Pancreatitis P 1. continue dexamethasone day 8 2. Continue remdesivir 3. continue isolation Subjective ROS Limited/Unobtainable: No Constitutional: Denies: fever Respiratory: Reports: shortness of breath, dry cough Gastrointestinal/Abdominal: Reports: no symptoms Genitourinary: Reports: no symptoms Allergies: Coded Allergies: No Known Allergies (Unverified , 08/31/20) Objective Last 24 Hour Vital Signs Date Time Temp Pulse Resp B/P (MAP) Pulse Ox O2 Delivery O2 Flow Rate FiO2 09/07/20 08:00 97.7 108 22 102/62 (75) 97 09/07/20 07:34 Non-Rebreather 15.0 09/07/20 04:00 98.6 72 18 125/76 (92) 98 09/06/20 23:57 98.4 92 18 114/80 (91) 94 09/06/20 20:29 Non-Rebreather 15.0 09/06/20 20:00 98.8 100 20 124/77 (93) 95 09/06/20 15:56 97.0 95 16 109/65 (80) 95 09/06/20 12:21 97.9 78 16 121/71 (88) 96 Height (Feet): 5 Height (Inches): 5.00 Weight (Pounds): 176 General Appearance: no acute distress HEENT: mucous membranes moist Respiratory/Chest: other - O2 by NRB mask Cardiovascular: normal rate Abdomen: soft, non tender Extremities: no edema Neurologic/Psychiatric: alert, responsive Laboratory Tests Test 09/07/20 05:35 White Blood Count 7.7 K/UL (4.8-10.8) Red Blood Count 5.20 M/UL (4.70-6.10) Hemoglobin 12.2 G/DL (14.2-18.0) L Hematocrit 39.9 % (42.0-52.0) L Mean Corpuscular Volume 77 FL (80-99) L Mean Corpuscular Hemoglobin 23.4 PG (27.0-31.0) L Mean Corpuscular Hemoglobin Concent 30.6 G/DL (32.0-36.0) L Red Cell Distribution Width 17.2 % (11.6-14.8) H Platelet Count 575 K/UL (150-450) H Mean Platelet Volume 7.2 FL (6.5-10.1) Neutrophils (%) (Auto) 68.4 % (45.0-75.0) Lymphocytes (%) (Auto) 21.2 % (20.0-45.0) Monocytes (%) (Auto) 7.9 % (1.0-10.0) Eosinophils (%) (Auto) 1.8 % (0.0-3.0) Basophils (%) (Auto) 0.6 % (0.0-2.0) Sodium Level 143 MMOL/L (136-145) Potassium Level 3.9 MMOL/L (3.5-5.1) Chloride Level 110 MMOL/L (98-107) H Carbon Dioxide Level 24 MMOL/L (21-32) Anion Gap 9 mmol/L (5-15) Blood Urea Nitrogen 20 mg/dL (7-18) H Creatinine 0.7 MG/DL (0.55-1.30) Estimat Glomerular Filtration Rate > 60 mL/min (>60) Glucose Level 83 MG/DL (74-106) Calcium Level 8.0 MG/DL (8.5-10.1) L Total Bilirubin 0.4 MG/DL (0.2-1.0) Direct Bilirubin < 0.1 MG/DL (0.0-0.3) Aspartate Amino Transf (AST/SGOT) 44 U/L (15-37) H Alanine Aminotransferase (ALT/SGPT) 88 U/L (12-78) H Alkaline Phosphatase 66 U/L (46-116) Total Protein 6.8 G/DL (6.4-8.2) Albumin 2.5 G/DL (3.4-5.0) L Globulin 4.3 g/dL Albumin/Globulin Ratio 0.6 (1.0-2.7) L Current Medications Medications (Trade) Dose Ordered Sig/Sami Route PRN Reason Start Time Stop Time Status Last Admin Dose Admin Acetaminophen (Tylenol) 650 mg Q6H PRN ORAL Mild Pain (Pain Scale 1-3) 08/31/20 12:15 09/30/20 12:14 Acetaminophen (Tylenol) 650 mg Q6H PRN ORAL For temp >100.4 08/31/20 12:30 09/30/20 12:29 Albuterol Sulfate (Proventil JULIA) 2 puff TID INH 08/31/20 13:46 11/29/20 13:45 09/07/20 08:09 Dexamethasone Sodium Phosphate (Decadron 10mg/ ml Inj) 6 mg DAILY IV 09/01/20 09:00 09/09/20 12:00 09/07/20 08:09 Enoxaparin Sodium (Lovenox) 40 mg DAILY SUBQ 09/01/20 09:00 11/30/20 08:59 09/07/20 08:17 Remdesivir 100 mg/ Sodium Chloride 250 ml @ 250 mls/hr Q24H IV 09/05/20 13:00 09/08/20 13:59 09/06/20 13:14 Ady Kong MD Sep 07, 2020 11:14
[2020-09-07 12:00] VITALS: BP 108/71
--- NOTE | 2020-09-07 12:36 | Pulmonology Progress Note ---
Subjective ROS Limited/Unobtainable: No Interval Events: None new Constitutional: Denies: fever HEENT: Repors: no symptoms Respiratory: Reports: no symptoms Cardiovascular: Reports: no symptoms Gastrointestinal/Abdominal: Reports: no symptoms Musculoskeletal: Reports: pain Allergies: Coded Allergies: No Known Allergies (Unverified , 08/31/20) Objective Last 24 Hour Vital Signs Date Time Temp Pulse Resp B/P (MAP) Pulse Ox O2 Delivery O2 Flow Rate FiO2 09/07/20 08:00 97.7 108 22 102/62 (75) 97 09/07/20 07:34 Non-Rebreather 15.0 09/07/20 04:00 98.6 72 18 125/76 (92) 98 09/06/20 23:57 98.4 92 18 114/80 (91) 94 09/06/20 20:29 Non-Rebreather 15.0 09/06/20 20:00 98.8 100 20 124/77 (93) 95 09/06/20 15:56 97.0 95 16 109/65 (80) 95 Intake and Output 09/06/20 09/07/20 19:00 07:00 Intake Total 1150 ml Output Total 200 ml Balance 1150 ml -200 ml Intake Oral 900 ml IV Total 250 ml Output Urine Total 200 ml # Voids 2 1 General Appearance: no acute distress HEENT: normocephalic Respiratory: decreased breath sounds Cardiovascular: normal peripheral pulses, normal rate Abdomen: normal bowel sounds Laboratory Tests 09/07/20 05:35: White Blood Count 7.7, Red Blood Count 5.20, Hemoglobin 12.2L, Hematocrit 39.9L, Mean Corpuscular Volume 77L, Mean Corpuscular Hemoglobin 23.4L, Mean Corpuscular Hemoglobin Concent 30.6L, Red Cell Distribution Width 17.2H, Platelet Count 575H , Mean Platelet Volume 7.2, Neutrophils (%) (Auto) 68.4, Lymphocytes (%) (Auto) 21.2, Monocytes (%) (Auto) 7.9, Eosinophils (%) (Auto) 1.8, Basophils (%) (Auto) 0.6, Sodium Level 143, Potassium Level 3.9, Chloride Level 110H, Carbon Dioxide Level 24, Anion Gap 9, Blood Urea Nitrogen 20H, Creatinine 0.7, Estimat Glomerular Filtration Rate > 60, Glucose Level 83, Calcium Level 8.0L, Total Bilirubin 0.4, Direct Bilirubin < 0.1, Aspartate Amino Transf (AST/SGOT) 44H, Alanine Aminotransferase (ALT/SGPT) 88H, Alkaline Phosphatase 66, Total Protein 6.8, Albumin 2.5L, Globulin 4.3, Albumin/Globulin Ratio 0.6L Current Medications Medications (Trade) Dose Ordered Sig/Sami Route PRN Reason Start Time Stop Time Status Last Admin Dose Admin Acetaminophen (Tylenol) 650 mg Q6H PRN ORAL Mild Pain (Pain Scale 1-3) 08/31/20 12:15 09/30/20 12:14 Acetaminophen (Tylenol) 650 mg Q6H PRN ORAL For temp >100.4 08/31/20 12:30 09/30/20 12:29 Albuterol Sulfate (Proventil MDI) 2 puff TID INH 08/31/20 13:46 11/29/20 13:45 09/07/20 08:09 Dexamethasone Sodium Phosphate (Decadron 10mg/ ml Inj) 6 mg DAILY IV 09/01/20 09:00 09/09/20 12:00 09/07/20 08:09 Enoxaparin Sodium (Lovenox) 40 mg DAILY SUBQ 09/01/20 09:00 11/30/20 08:59 09/07/20 08:17 Remdesivir 100 mg/ Sodium Chloride 250 ml @ 250 mls/hr Q24H IV 09/05/20 13:00 09/08/20 13:59 09/06/20 13:14 Assessment/Plan Assessment/Plan 1. COVID-19 pneumonia - COVID-19 PCR positive (08/31) - now off broad-spectrum Abx per ID - on remdesivir (09/04-) - Will repeat CXR 2. Elevated inflammatory markers. - on Lovenox - tachycardic this AM -> will repeat D-dimer 3. Hypoxemia. - On decadron (09/01-) - on NRB saturating well; wean as tolerated; failed weaning again Continue current management The care for this patient was discussed with my supervising physician Time spent for this case was approximately 31 minutes Titi Zhang Sep 07, 2020 12:36
[2020-09-07] MEDS: Maintenance Dose:Remdesivir 100mg/NS 230ml x 4 Doses IV SCH ×2 (12:47)
--- NOTE | 2020-09-07 13:51 | General Progress Note ---
Subjective Allergies: Coded Allergies: No Known Allergies (Unverified , 08/31/20) Subjective doing ok on 15 litre fio2 oriented Objective Last 24 Hour Vital Signs Date Time Temp Pulse Resp B/P (MAP) Pulse Ox O2 Delivery O2 Flow Rate FiO2 09/07/20 08:00 97.7 108 22 102/62 (75) 97 09/07/20 07:34 Non-Rebreather 15.0 09/07/20 04:00 98.6 72 18 125/76 (92) 98 09/06/20 23:57 98.4 92 18 114/80 (91) 94 09/06/20 20:29 Non-Rebreather 15.0 09/06/20 20:00 98.8 100 20 124/77 (93) 95 09/06/20 15:56 97.0 95 16 109/65 (80) 95 Intake and Output 09/06/20 09/07/20 19:00 07:00 Intake Total 1150 ml Output Total 200 ml Balance 1150 ml -200 ml Intake Oral 900 ml IV Total 250 ml Output Urine Total 200 ml # Voids 2 1 Laboratory Tests 09/07/20 05:35: White Blood Count 7.7, Red Blood Count 5.20, Hemoglobin 12.2L, Hematocrit 39.9L, Mean Corpuscular Volume 77L, Mean Corpuscular Hemoglobin 23.4L, Mean Corpuscular Hemoglobin Concent 30.6L, Red Cell Distribution Width 17.2H, Platelet Count 575H , Mean Platelet Volume 7.2, Neutrophils (%) (Auto) 68.4, Lymphocytes (%) (Auto) 21.2, Monocytes (%) (Auto) 7.9, Eosinophils (%) (Auto) 1.8, Basophils (%) (Auto) 0.6, Sodium Level 143, Potassium Level 3.9, Chloride Level 110H, Carbon Dioxide Level 24, Anion Gap 9, Blood Urea Nitrogen 20H, Creatinine 0.7, Estimat Glomerular Filtration Rate > 60, Glucose Level 83, Calcium Level 8.0L, Total Bilirubin 0.4, Direct Bilirubin < 0.1, Aspartate Amino Transf (AST/SGOT) 44H, Alanine Aminotransferase (ALT/SGPT) 88H, Alkaline Phosphatase 66, Total Protein 6.8, Albumin 2.5L, Globulin 4.3, Albumin/Globulin Ratio 0.6L Height (Feet): 5 Height (Inches): 5.00 Weight (Pounds): 176 General Appearance: alert EENT: PERRL/EOMI Cardiovascular: regular rhythm Respiratory/Chest: rhonchi - bilaterally Abdomen: non tender, soft Assessment/Plan Assessment/Plan: ac sob covid pna iv abx iv decadrone novnex regolar diet pulmo on case cont fio2 Brian Fragoso MD Sep 07, 2020 13:51
--- NOTE | 2020-09-07 15:26 | Diagnostic Imaging Report ---
EXAM: XR Chest, 1 View CLINICAL HISTORY: INFECT TECHNIQUE: Frontal view of the chest. COMPARISON: 08/31/2020 FINDINGS: Lungs: Improved aeration bilaterally. Persistent patchy bilateral opacities worst in the mid and lower lungs. Pleural space: No significant abnormality. No pneumothorax. Heart: No significant abnormality. No cardiomegaly. Mediastinum: No significant abnormality. Bones/joints: No acute osseous abnormality. IMPRESSION: Persistent patchy bilateral opacities are concerning for an infectious or inflammatory process.
[2020-09-07 16:00] VITALS: BP 103/63
--- NOTE | 2020-09-07 19:17 | NUR ---
NURSE HAND-OFF: Important Events on Shift:N Patient Status: Diet: Pending Orders: Pending Results/Labs: Pending MD notification: Latest Vital Signs: Temperature 98.7 , Pulse 107 , B/P 103 /63 , Respiratory Rate 22 , O2 SAT 98 , Bi-pap, O2 Flow Rate 15.0 . Vital Sign Comment: Latest Stone Fall Score: 20 Fall Risk: Low Risk Safety Measures: Call light Within Reach, Bed Alarm Zone 2, Side Rails Side Rails x2, Bed position Low and Locked. Fall Precautions: Yellow Socks Yellow Gown Patient Fall Education Report given to ZION Coelho.
[2020-09-07 19:57] VITALS: BP 115/75
[2020-09-07 23:42] VITALS: BP 118/67
[2020-09-08 03:57] VITALS: BP 117/78
--- NOTE | 2020-09-08 06:10 | NUR ---
NURSE HAND-OFF: Important Events on Shift:[]Still on Non-rebreather mask 15L Patient Status: []Desaturates when on venturi mask, needs Non-rebreather mask Diet: [] Pending Orders: [] Pending Results/Labs:[] Pending MD notification:[] Latest Vital Signs: Temperature 98.2 , Pulse 74 , B/P 117 /78 , Respiratory Rate 17 , O2 SAT 100 , Bi-pap, O2 Flow Rate 15.0 . Vital Sign Comment: [] Latest Stone Fall Score: 20 Fall Risk: Low Risk Safety Measures: Call light Within Reach, Bed Alarm Zone 2, Side Rails Side Rails x2, Bed position Low and Locked. Fall Precautions: Yellow Socks Yellow Gown Patient Fall Education Report given to [].
[2020-09-08 06:39] LABS: BASOPHILS % (AUTO) 0.7 % (0.0-2.0); EOSINOPHILS % (AUTO) 1.4 % (0.0-3.0); HEMATOCRIT 41.6 % (42.0-52.0); HEMOGLOBIN 12.5 G/DL (14.2-18.0); LYMPHOCYTES % (AUTO) 21.6 % (20.0-45.0); MEAN CORPUSCULAR VOLUME 77 FL (80-99); MONOCYTES % (AUTO) 6.8 % (1.0-10.0); NEUTROPHILS % (AUTO) 69.5 % (45.0-75.0); PLATELET COUNT 558 K/UL (150-450); RED CELL DISTRIBUTION WIDTH 17.2 % (11.6-14.8); WHITE BLOOD COUNT 8.8 K/UL (4.8-10.8)
[2020-09-08 06:52] LABS: ALANINE AMINOTRANSFERASE 85 U/L (12-78); ALBUMIN 2.6 G/DL (3.4-5.0); ALBUMIN/GLOBULIN RATIO 0.6 (1.0-2.7); ALKALINE PHOSPHATASE 72 U/L (46-116); ANION GAP 8 mmol/L (5-15); ASPARTATE AMINO TRANSFERASE 33 U/L (15-37); BILIRUBIN,DIRECT 0.1 MG/DL (0.0-0.3); BILIRUBIN,TOTAL 0.3 MG/DL (0.2-1.0); BLOOD UREA NITROGEN 22 mg/dL (7-18); CALCIUM 8.3 MG/DL (8.5-10.1); CARBON DIOXIDE 25 MMOL/L (21-32); CHLORIDE 108 MMOL/L (98-107); CREATININE 0.7 MG/DL (0.55-1.30); POTASSIUM 4.2 MMOL/L (3.5-5.1); SODIUM 141 MMOL/L (136-145)
--- NOTE | 2020-09-08 07:25 | NUR ---
NURSE NOTES: Handoff received from Laquita DONOVAN. PAtient is awake and alert, no signs of acute distress noted, short of breath on 15L NRB mask. Left hand Iv is intact and saline locked. Patient updated on plan of care, verbalized understanding. Bed is low and locked, side rails up x2, call light is within reach.
[2020-09-08 08:00] VITALS: BP 121/77
[2020-09-08] MEDS: Albuterol 90mcg Inhaler 8gm INH SCH ×3 (09:01→17:27)
[2020-09-08] MEDS: dexAMETHasone 10mg/ml Inj IV SCH (09:04)
[2020-09-08] MEDS: Enoxaparin 40mg Inj SUBQ SCH (09:06)
--- NOTE | 2020-09-08 09:08 | General Progress Note ---
Subjective Constitutional: Denies: no symptoms, chills, diaphoresis, fever, malaise, weakness, other HEENT: Denies: no symptoms, eye pain, blurred vision, tearing, double vision, ear pain, ear discharge, nose pain, nose congestion, throat pain, throat swelling, mouth pain, mouth swelling, other Respiratory: Denies: no symptoms, cough, orthopnea, shortness of breath, SOB with excertion, SOB at rest, sputum, stridor, wheezing, other Gastrointestinal/Abdominal: Denies: no symptoms, abdomen distended, abdominal pain, black stools, tarry stools, blood in stool, constipated, diarrhea, difficulty swallowing, nausea, poor appetite, poor fluid intake, rectal bleeding, vomiting, other Genitourinary: Denies: no symptoms, burning, discharge, frequency, flank pain, hematuria, incontinence, pain, urgency, other Neurologic/Psychiatric: Denies: no symptoms, anxiety, depressed, emotional problems, headache, numbness, paresthesia, pre-existing deficit, seizure, tingling, tremors, weakness, other Endocrine: Denies: no symptoms, excessive sweating, flushing, intolerance to cold, intolerance to heat, increased hunger, increased thirst, increased urine, unexplained weight gain, unexplained weight loss, other Hematologic/Lymphatic: Denies: no symptoms, anemia, easy bleeding, easy bruising, other Allergies: Coded Allergies: No Known Allergies (Unverified , 08/31/20) Subjective 09/08 labs reviewed, meds noted, labs reviewed, no fc Objective Last 24 Hour Vital Signs Date Time Temp Pulse Resp B/P (MAP) Pulse Ox O2 Delivery O2 Flow Rate FiO2 09/08/20 03:57 98.2 74 17 117/78 (91) 100 09/07/20 23:42 98.1 84 17 118/67 (84) 98 09/07/20 20:47 Non-Rebreather 15.0 09/07/20 19:57 97.9 80 18 115/75 (88) 99 09/07/20 16:00 98.7 107 22 103/63 (76) 98 09/07/20 12:00 97.6 100 22 108/71 (83) 97 Intake and Output 09/07/20 09/08/20 19:00 07:00 Intake Total 720 ml 240 ml Output Total 500 ml Balance 720 ml -260 ml Intake Oral 720 ml 240 ml Output Urine Total 500 ml # Voids 3 2 Laboratory Tests 09/07/20 14:19: D-Dimer 1.79H 09/08/20 06:00: White Blood Count 8.8, Red Blood Count 5.40, Hemoglobin 12.5L, Hematocrit 41.6L, Mean Corpuscular Volume 77L, Mean Corpuscular Hemoglobin 23.2L, Mean Corpuscular Hemoglobin Concent 30.1L, Red Cell Distribution Width 17.2H, Platelet Count 558H , Mean Platelet Volume 7.2, Neutrophils (%) (Auto) 69.5, Lymphocytes (%) (Auto) 21.6, Monocytes (%) (Auto) 6.8, Eosinophils (%) (Auto) 1.4, Basophils (%) (Auto) 0.7, Sodium Level 141, Potassium Level 4.2, Chloride Level 108H, Carbon Dioxide Level 25, Anion Gap 8, Blood Urea Nitrogen 22H, Creatinine 0.7, Estimat Glomerular Filtration Rate > 60, Glucose Level 88, Calcium Level 8.3L, Total Bilirubin 0.3, Direct Bilirubin 0.1, Aspartate Amino Transf (AST/SGOT) 33, Alanine Aminotransferase (ALT/SGPT) 85H, Alkaline Phosphatase 72, Total Protein 6.9, Albumin 2.6L, Globulin 4.3, Albumin/Globulin Ratio 0.6L Height (Feet): 5 Height (Inches): 5.00 Weight (Pounds): 176 Objective General Appearance: alert EENT: PERRL/EOMI Neck: supple Cardiovascular: normal rate Respiratory/Chest: lungs clear, normal breath sounds, no respiratory distress, rhonchi - bilaterally Abdomen: non tender, soft Assessment/Plan Status Narrative im Covering ac sob covid pna iv abx iv decadrone novnex regolar diet pulmo on case cont fio2 labs reviewed César Arnold MD Sep 08, 2020 09:08
--- NOTE | 2020-09-08 09:38 | Pulmonology Progress Note ---
Subjective ROS Limited/Unobtainable: No Interval Events: None new Constitutional: Denies: fever HEENT: Repors: no symptoms Respiratory: Reports: no symptoms Cardiovascular: Reports: no symptoms Gastrointestinal/Abdominal: Reports: no symptoms Musculoskeletal: Reports: pain Allergies: Coded Allergies: No Known Allergies (Unverified , 08/31/20) Objective Last 24 Hour Vital Signs Date Time Temp Pulse Resp B/P (MAP) Pulse Ox O2 Delivery O2 Flow Rate FiO2 09/08/20 03:57 98.2 74 17 117/78 (91) 100 09/07/20 23:42 98.1 84 17 118/67 (84) 98 09/07/20 20:47 Non-Rebreather 15.0 09/07/20 19:57 97.9 80 18 115/75 (88) 99 09/07/20 16:00 98.7 107 22 103/63 (76) 98 09/07/20 12:00 97.6 100 22 108/71 (83) 97 Intake and Output 09/07/20 09/08/20 19:00 07:00 Intake Total 720 ml 240 ml Output Total 500 ml Balance 720 ml -260 ml Intake Oral 720 ml 240 ml Output Urine Total 500 ml # Voids 3 2 General Appearance: no acute distress HEENT: normocephalic Respiratory: decreased breath sounds Cardiovascular: normal peripheral pulses, normal rate Abdomen: normal bowel sounds Laboratory Tests 09/07/20 14:19: D-Dimer 1.79H 09/08/20 06:00: White Blood Count 8.8, Red Blood Count 5.40, Hemoglobin 12.5L, Hematocrit 41.6L, Mean Corpuscular Volume 77L, Mean Corpuscular Hemoglobin 23.2L, Mean Corpuscular Hemoglobin Concent 30.1L, Red Cell Distribution Width 17.2H, Platelet Count 558H , Mean Platelet Volume 7.2, Neutrophils (%) (Auto) 69.5, Lymphocytes (%) (Auto) 21.6, Monocytes (%) (Auto) 6.8, Eosinophils (%) (Auto) 1.4, Basophils (%) (Auto) 0.7, Sodium Level 141, Potassium Level 4.2, Chloride Level 108H, Carbon Dioxide Level 25, Anion Gap 8, Blood Urea Nitrogen 22H, Creatinine 0.7, Estimat Glomerular Filtration Rate > 60, Glucose Level 88, Calcium Level 8.3L, Total Bilirubin 0.3, Direct Bilirubin 0.1, Aspartate Amino Transf (AST/SGOT) 33, Alanine Aminotransferase (ALT/SGPT) 85H, Alkaline Phosphatase 72, Total Protein 6.9, Albumin 2.6L, Globulin 4.3, Albumin/Globulin Ratio 0.6L Current Medications Medications (Trade) Dose Ordered Sig/Sami Route PRN Reason Start Time Stop Time Status Last Admin Dose Admin Acetaminophen (Tylenol) 650 mg Q6H PRN ORAL Mild Pain (Pain Scale 1-3) 08/31/20 12:15 09/30/20 12:14 Acetaminophen (Tylenol) 650 mg Q6H PRN ORAL For temp >100.4 08/31/20 12:30 09/30/20 12:29 Albuterol Sulfate (Proventil MDI) 2 puff TID INH 08/31/20 13:46 11/29/20 13:45 09/08/20 09:01 Dexamethasone Sodium Phosphate (Decadron 10mg/ ml Inj) 6 mg DAILY IV 09/01/20 09:00 09/09/20 12:00 09/08/20 09:04 Enoxaparin Sodium (Lovenox) 40 mg DAILY SUBQ 09/01/20 09:00 11/30/20 08:59 09/08/20 09:06 Remdesivir 100 mg/ Sodium Chloride 250 ml @ 250 mls/hr Q24H IV 09/05/20 13:00 09/08/20 13:59 09/07/20 12:47 Assessment/Plan Assessment/Plan 1. COVID-19 pneumonia - COVID-19 PCR positive (08/31) - now off broad-spectrum Abx per ID - on remdesivir (09/04-) - CXR (09/07) Persistent patchy bilateral opacities 2. Elevated inflammatory markers. - on Lovenox for DVT ppx - repeat D-dimer trending down 3. Hypoxemia. - On decadron (09/01-) - on NRB saturating well; wean as tolerated; failed weaning again Continue current management The care for this patient was discussed with my supervising physician Time spent for this case was approximately 31 minutes Titi Zhang Sep 08, 2020 09:38
--- NOTE | 2020-09-08 10:05 | NUR ---
RESPIRATORY NOTES Per Titi ALONZO, attempted to place PT on venturi mask. PT did not tolerate well - SaO2 in the 80's. PT placed back on NRB. CHG RN aware. Will continue to monitor.
[2020-09-08 12:00] VITALS: BP 119/70
[2020-09-08] MEDS: Maintenance Dose:Remdesivir 100mg/NS 230ml x 4 Doses IV SCH ×2 (13:00)
[2020-09-08 16:00] VITALS: BP 120/76
--- NOTE | 2020-09-08 18:38 | NUR ---
NURSE HAND-OFF: Important Events on Shift:[attempt to wean off NRB] Patient Status: stable Diet: regular Pending Orders: Pending Results/Labs: Pending MD notification: Latest Vital Signs: Temperature 98.2 , Pulse 90 , B/P 120 /76 , Respiratory Rate 21 , O2 SAT 97 , Bi-pap, O2 Flow Rate 15.0 . Vital Sign Comment: stable Latest Stone Fall Score: 20 Fall Risk: Low Risk Safety Measures: Call light Within Reach, Bed Alarm Zone 2, Side Rails Side Rails x2, Bed position Low and Locked. Fall Precautions: Yellow Socks Yellow Gown Patient Fall Education Report given to Laquita DONOVAN.
--- NOTE | 2020-09-08 19:42 | NUR ---
NURSE NOTES: Received patient awake, alert, verbal, understands little Vietnamese, resting in bed, no SOB, on non-rebreather mask at 15L, with essentially normal vital signs.
[2020-09-08 19:59] VITALS: BP 112/70
[2020-09-09 04:04] VITALS: BP 118/72
--- NOTE | 2020-09-09 06:31 | Hematology/Onc Progress Note ---
Assessment/Plan Assessment/Plan elevated ddimer due to covid19++ anemia likely chronic dsiease leukocytosis ac sob covid pna iv abx iv decadrone novnex regolar diet pulmo on case cont fio2 labs reviewed Subjective Constitutional: Denies: no symptoms, chills, fever, malaise, weakness, other HEENT: Denies: no symptoms, eye pain, blurred vision, tearing, double vision, ear pain, ear discharge, nose pain, nose congestion, throat pain, throat swelling, mouth pain, mouth swelling, other Cardiovascular: Denies: no symptoms, chest pain, edema, irregular heart rate, lightheadedness, palpitations, syncope, other Respiratory: Denies: no symptoms, cough, shortness of breath, SOB with excertion, SOB at rest, sputum, wheezing, other Neurologic/Psychiatric: Denies: no symptoms, anxiety, depressed, emotional problems, headache, numbness, paresthesia, pre-existing deficit, seizure, tingling, tremors, weakness, other Endocrine: Denies: no symptoms, excessive sweating, flushing, intolerance to cold, intolerance to heat, increased hunger, increased thirst, increased urine, unexplained weight gain, unexplained weight loss, other Hematologic/Lymphatic: Denies: no symptoms, anemia, easy bleeding, easy bruising, adenopathy, other Allergies: Coded Allergies: No Known Allergies (Unverified , 08/31/20) Subjective 09/08 labs reviewed, meds noted, labs reviewed, no fc 09/09 alert awake, is on 15l, no major changes, no bleeding, dw rn Objective Objective Current Medications Medications (Trade) Dose Ordered Sig/Sami Route PRN Reason Start Time Stop Time Status Last Admin Dose Admin Acetaminophen (Tylenol) 650 mg Q6H PRN ORAL Mild Pain (Pain Scale 1-3) 08/31/20 12:15 09/30/20 12:14 Acetaminophen (Tylenol) 650 mg Q6H PRN ORAL For temp >100.4 08/31/20 12:30 09/30/20 12:29 Albuterol Sulfate (Proventil MDI) 2 puff TID INH 08/31/20 13:46 11/29/20 13:45 09/08/20 17:27 Dexamethasone Sodium Phosphate (Decadron 10mg/ ml Inj) 6 mg DAILY IV 09/01/20 09:00 09/09/20 12:00 09/08/20 09:04 Enoxaparin Sodium (Lovenox) 40 mg DAILY SUBQ 09/01/20 09:00 11/30/20 08:59 09/08/20 09:06 Last 24 Hour Vital Signs Date Time Temp Pulse Resp B/P (MAP) Pulse Ox O2 Delivery O2 Flow Rate FiO2 09/09/20 04:04 98.0 78 118/72 (87) 09/08/20 20:17 Non-Rebreather 15.0 09/08/20 19:59 97.3 77 20 112/70 (84) 99 09/08/20 16:00 98.2 90 21 120/76 (91) 97 09/08/20 12:00 98.3 75 20 119/70 (86) 95 09/08/20 09:00 Non-Rebreather 15.0 09/08/20 08:00 98.5 77 20 121/77 (92) 97 09/08/20 07:00 97 Non-Rebreather 15.0 100 09/08/20 03:57 98.2 74 17 117/78 (91) 100 09/07/20 23:42 98.1 84 17 118/67 (84) 98 09/07/20 20:47 Non-Rebreather 15.0 09/07/20 19:57 97.9 80 18 115/75 (88) 99 09/07/20 16:00 98.7 107 22 103/63 (76) 98 09/07/20 12:00 97.6 100 22 108/71 (83) 97 09/07/20 08:00 97.7 108 22 102/62 (75) 97 09/07/20 07:34 Non-Rebreather 15.0 Intake and Output 09/08/20 09/09/20 19:00 07:00 Intake Total 830 ml Output Total 900 ml Balance -70 ml Intake Oral 830 ml Output Urine Total 900 ml # Voids 5 Labs Test 09/07/20 05:35 09/07/20 14:19 09/08/20 06:00 White Blood Count 7.7 K/UL (4.8-10.8) 8.8 K/UL (4.8-10.8) Red Blood Count 5.20 M/UL (4.70-6.10) 5.40 M/UL (4.70-6.10) Hemoglobin 12.2 G/DL (14.2-18.0) 12.5 G/DL (14.2-18.0) Hematocrit 39.9 % (42.0-52.0) 41.6 % (42.0-52.0) Mean Corpuscular Volume 77 FL (80-99) 77 FL (80-99) Mean Corpuscular Hemoglobin 23.4 PG (27.0-31.0) 23.2 PG (27.0-31.0) Mean Corpuscular Hemoglobin Concent 30.6 G/DL (32.0-36.0) 30.1 G/DL (32.0-36.0) Red Cell Distribution Width 17.2 % (11.6-14.8) 17.2 % (11.6-14.8) Platelet Count 575 K/UL (150-450) 558 K/UL (150-450) Mean Platelet Volume 7.2 FL (6.5-10.1) 7.2 FL (6.5-10.1) Neutrophils (%) (Auto) 68.4 % (45.0-75.0) 69.5 % (45.0-75.0) Lymphocytes (%) (Auto) 21.2 % (20.0-45.0) 21.6 % (20.0-45.0) Monocytes (%) (Auto) 7.9 % (1.0-10.0) 6.8 % (1.0-10.0) Eosinophils (%) (Auto) 1.8 % (0.0-3.0) 1.4 % (0.0-3.0) Basophils (%) (Auto) 0.6 % (0.0-2.0) 0.7 % (0.0-2.0) Sodium Level 143 MMOL/L (136-145) 141 MMOL/L (136-145) Potassium Level 3.9 MMOL/L (3.5-5.1) 4.2 MMOL/L (3.5-5.1) Chloride Level 110 MMOL/L (98-107) 108 MMOL/L (98-107) Carbon Dioxide Level 24 MMOL/L (21-32) 25 MMOL/L (21-32) Anion Gap 9 mmol/L (5-15) 8 mmol/L (5-15) Blood Urea Nitrogen 20 mg/dL (7-18) 22 mg/dL (7-18) Creatinine 0.7 MG/DL (0.55-1.30) 0.7 MG/DL (0.55-1.30) Estimat Glomerular Filtration Rate > 60 mL/min (>60) > 60 mL/min (>60) Glucose Level 83 MG/DL (74-106) 88 MG/DL (74-106) Calcium Level 8.0 MG/DL (8.5-10.1) 8.3 MG/DL (8.5-10.1) Total Bilirubin 0.4 MG/DL (0.2-1.0) 0.3 MG/DL (0.2-1.0) Direct Bilirubin < 0.1 MG/DL (0.0-0.3) 0.1 MG/DL (0.0-0.3) Aspartate Amino Transf (AST/SGOT) 44 U/L (15-37) 33 U/L (15-37) Alanine Aminotransferase (ALT/SGPT) 88 U/L (12-78) 85 U/L (12-78) Alkaline Phosphatase 66 U/L (46-116) 72 U/L (46-116) Total Protein 6.8 G/DL (6.4-8.2) 6.9 G/DL (6.4-8.2) Albumin 2.5 G/DL (3.4-5.0) 2.6 G/DL (3.4-5.0) Globulin 4.3 g/dL 4.3 g/dL Albumin/Globulin Ratio 0.6 (1.0-2.7) 0.6 (1.0-2.7) D-Dimer 1.79 mg/L FEU (0.00-0.49) Height (Feet): 5 Height (Inches): 5.00 Weight (Pounds): 176 Objective General Appearance: alert EENT: PERRL/EOMI Neck: supple Cardiovascular: normal rate Respiratory/Chest: lungs clear, normal breath sounds, no respiratory distress, rhonchi - bilaterally Abdomen: non tender, soft César Arnold MD Sep 09, 2020 06:31
--- NOTE | 2020-09-09 07:30 | NUR ---
NURSE HAND-OFF: Important Events on Shift:[]Still on non-rebreather mask at 15L Patient Status: [] Diet: [] Pending Orders: [] Pending Results/Labs:[] Pending MD notification:[] Latest Vital Signs: Temperature 98.0 , Pulse 78 , B/P 118 /72 , Respiratory Rate 20 , O2 SAT 99 , Bi-pap, O2 Flow Rate 15.0 . Vital Sign Comment: [] Latest Stone Fall Score: 20 Fall Risk: Low Risk Safety Measures: Call light Within Reach, Bed Alarm Zone 2, Side Rails Side Rails x2, Bed position Low and Locked. Fall Precautions: Yellow Socks Yellow Gown Patient Fall Education Report given to [].
[2020-09-09 08:00] VITALS: BP_SYST 110; BP_SYST 128; BP_DIAS 65; BP_DIAS 71
[2020-09-09] MEDS: Albuterol 90mcg Inhaler 8gm INH SCH ×3 (09:05→18:00)
[2020-09-09] MEDS: dexAMETHasone 10mg/ml Inj IV SCH (09:10)
[2020-09-09] MEDS: Enoxaparin 40mg Inj SUBQ SCH (09:10)
--- NOTE | 2020-09-09 10:12 | Pulmonology Progress Note ---
Subjective ROS Limited/Unobtainable: No Interval Events: None new Constitutional: Denies: fever HEENT: Repors: no symptoms Respiratory: Reports: no symptoms Cardiovascular: Reports: no symptoms Gastrointestinal/Abdominal: Reports: no symptoms Musculoskeletal: Reports: pain Allergies: Coded Allergies: No Known Allergies (Unverified , 08/31/20) Objective Last 24 Hour Vital Signs Date Time Temp Pulse Resp B/P (MAP) Pulse Ox O2 Delivery O2 Flow Rate FiO2 09/09/20 08:00 97.5 75 18 110/71 (84) 97 75 09/09/20 04:04 98.0 78 118/72 (87) 09/08/20 20:17 Non-Rebreather 15.0 09/08/20 19:59 97.3 77 20 112/70 (84) 99 09/08/20 16:00 98.2 90 21 120/76 (91) 97 09/08/20 12:00 98.3 75 20 119/70 (86) 95 Intake and Output 09/08/20 09/09/20 19:00 07:00 Intake Total 830 ml 420 ml Output Total 900 ml Balance -70 ml 420 ml Intake Oral 830 ml 420 ml Output Urine Total 900 ml # Voids 5 3 General Appearance: no acute distress HEENT: normocephalic Respiratory: decreased breath sounds Cardiovascular: normal peripheral pulses, normal rate Abdomen: normal bowel sounds Current Medications Medications (Trade) Dose Ordered Sig/Sami Route PRN Reason Start Time Stop Time Status Last Admin Dose Admin Acetaminophen (Tylenol) 650 mg Q6H PRN ORAL Mild Pain (Pain Scale 1-3) 08/31/20 12:15 09/30/20 12:14 Acetaminophen (Tylenol) 650 mg Q6H PRN ORAL For temp >100.4 08/31/20 12:30 09/30/20 12:29 Albuterol Sulfate (Proventil MDI) 2 puff TID INH 08/31/20 13:46 11/29/20 13:45 09/09/20 09:05 Dexamethasone Sodium Phosphate (Decadron 10mg/ ml Inj) 6 mg DAILY IV 09/01/20 09:00 09/09/20 12:00 09/09/20 09:10 Enoxaparin Sodium (Lovenox) 40 mg DAILY SUBQ 09/01/20 09:00 11/30/20 08:59 09/09/20 09:10 Assessment/Plan Assessment/Plan 1. COVID-19 pneumonia - COVID-19 PCR positive (08/31) - now off broad-spectrum Abx per ID - s/p remdesivir (09/05-09/08) - CXR (09/07) Persistent patchy bilateral opacities 2. Elevated inflammatory markers. - on Lovenox for DVT ppx - repeat D-dimer trending down 3. Hypoxemia. - On decadron (09/01-) - on NRB saturating well; wean as tolerated; failed weaning again Continue current management The care for this patient was discussed with my supervising physician Time spent for this case was approximately 31 minutes Titi Zhang Sep 09, 2020 10:12
--- NOTE | 2020-09-09 11:42 | Infectious Diseases Prog Note ---
Assessment/Plan Assessment/Plan antibiotics : none A 1. covid 19 pneumonia on 15 liters O2 with 95 % saturation s/p remdesivir 2. respiratory failure P 1. d/c dexamethasone 2. start solumedrol 3. will follow up cultures 4. continue isolation Subjective ROS Limited/Unobtainable: Yes Allergies: Coded Allergies: No Known Allergies (Unverified , 08/31/20) Objective Last 24 Hour Vital Signs Date Time Temp Pulse Resp B/P (MAP) Pulse Ox O2 Delivery O2 Flow Rate FiO2 09/09/20 09:00 Non-Rebreather 15.0 09/09/20 08:00 97.5 75 18 110/71 (84) 97 75 09/09/20 04:04 98.0 78 118/72 (87) 09/08/20 20:17 Non-Rebreather 15.0 09/08/20 19:59 97.3 77 20 112/70 (84) 99 09/08/20 16:00 98.2 90 21 120/76 (91) 97 09/08/20 12:00 98.3 75 20 119/70 (86) 95 Height (Feet): 5 Height (Inches): 5.00 Weight (Pounds): 176 Current Medications Medications (Trade) Dose Ordered Sig/Sami Route PRN Reason Start Time Stop Time Status Last Admin Dose Admin Acetaminophen (Tylenol) 650 mg Q6H PRN ORAL Mild Pain (Pain Scale 1-3) 08/31/20 12:15 09/30/20 12:14 Acetaminophen (Tylenol) 650 mg Q6H PRN ORAL For temp >100.4 08/31/20 12:30 09/30/20 12:29 Albuterol Sulfate (Proventil MDI) 2 puff TID INH 08/31/20 13:46 11/29/20 13:45 09/09/20 09:05 Enoxaparin Sodium (Lovenox) 40 mg DAILY SUBQ 09/01/20 09:00 11/30/20 08:59 09/09/20 09:10 Methylprednisolone Sodium Succinate (Solu-MEDROL) 20 mg EVERY 8 HOURS IVP 09/09/20 14:00 12/08/20 13:59 Demetra Rose MD Sep 09, 2020 11:42
[2020-09-09 12:00] VITALS: BP 115/70
[2020-09-09] MEDS: Solu-MEDROL 40mg Inj IVP SCH ×2 (13:08→21:45)
--- NOTE | 2020-09-09 13:31 | NUR ---
CASE MANAGEMENT:REVIEW 09/09/20 SI: COVID PNEUMONIA. 97.5 75 18 110/71 97% ON 15L/NRB NO LABS FOR TODAY IS: IV SOLUMEDROL 20MG Q8HRS LOVENOX SQ QD IV DECADRON QD ALBUTEROL INH TID : NOW ON TELEMETRY UNIT DCP: FROM HOME PLAN: LAST DOSE OF REMDESIVIR GIVEN YESTERDAY WEAN OXYGEN IF ABLE
[2020-09-09 16:00] VITALS: BP 121/74
--- NOTE | 2020-09-09 16:58 | Diagnostic Imaging Report ---
Indication: Lower extremity pain Technique: Grayscale and duplex images of the bilateral lower extremity veins Comparison: Findings: Bilaterally, grayscale and duplex images demonstrate no evidence of intraluminal thrombus. Normal phasic Doppler waveforms, demonstrating normal augmentation response and no evidence of valvular insufficiency. Greater saphenous vein(s) and tibial veins are patent. Normal compressibility. Impression: Negative for evidence of lower extremity deep venous thrombosis bilaterally
--- NOTE | 2020-09-09 18:14 | General Progress Note ---
Subjective Allergies: Coded Allergies: No Known Allergies (Unverified , 08/31/20) Subjective doing ok on 15 litre fio2 oriented Objective Last 24 Hour Vital Signs Date Time Temp Pulse Resp B/P (MAP) Pulse Ox O2 Delivery O2 Flow Rate FiO2 09/09/20 16:00 97.9 111 18 121/74 (90) 95 111 09/09/20 12:00 97.7 91 19 115/70 (85) 95 91 09/09/20 09:00 Non-Rebreather 15.0 09/09/20 08:00 97.5 75 18 110/71 (84) 97 75 09/09/20 07:00 97 Non-Rebreather 15.0 100 09/09/20 04:04 98.0 78 118/72 (87) 09/08/20 20:17 Non-Rebreather 15.0 09/08/20 19:59 97.3 77 20 112/70 (84) 99 Intake and Output 09/08/20 09/09/20 19:00 07:00 Intake Total 830 ml 420 ml Output Total 900 ml Balance -70 ml 420 ml Intake Oral 830 ml 420 ml Output Urine Total 900 ml # Voids 5 3 Height (Feet): 5 Height (Inches): 5.00 Weight (Pounds): 176 General Appearance: alert EENT: PERRL/EOMI Neck: supple Cardiovascular: regular rhythm Respiratory/Chest: rhonchi - bilaterally Abdomen: non tender, soft Assessment/Plan Assessment/Plan: ac sob covid pna iv abx iv decadrone novnex regolar diet pulmo on case cont fio2 Brian Fragoso MD Sep 09, 2020 18:14
--- NOTE | 2020-09-09 19:11 | NUR ---
NURSE HAND-OFF: Important Events on Shift: Patient Status: full code/ stable Diet: CCHO medium Pending Orders: Pending Results/Labs: CBC, BMP, Pending MD notification:[] Latest Vital Signs: Temperature 97.9 , Pulse 111 , B/P 121 /74 , Respiratory Rate 18 , O2 SAT 95 , Bi-pap, O2 Flow Rate 15.0 . Vital Sign Comment: 15L none rebreather mask Latest Stone Fall Score: 20 Fall Risk: Low Risk Safety Measures: Call light Within Reach, Bed Alarm Zone 2, Side Rails Side Rails x2, Bed position Low and Locked. Fall Precautions: Yellow Socks Yellow Gown Patient Fall Education Report given to Lloyd DONOVAN, patient in stable condition. - Try to wean off from none rebreather mask but patient was not able to tolerate in my shift. incoming nurse will attempt again during his shift. - patient has a persistent cough
--- NOTE | 2020-09-09 19:27 | NUR ---
NURSE NOTES: Received report from Medina DONOVAN. Patient is awake, alert, and oriented x4. On non rebreather 15L, breathing is even and unlabored. No complains of pain or distress noted. IV right FA intact and patent with no bleeding noted. Bed low and locked. Call light within reach.
[2020-09-09 20:00] VITALS: BP 121/73
[2020-09-10] VITALS: BP 123/80
[2020-09-10 04:00] VITALS: BP 111/71
[2020-09-10] MEDS: Solu-MEDROL 40mg Inj IVP SCH ×3 (06:07→21:12)
--- NOTE | 2020-09-10 06:36 | Hematology/Onc Progress Note ---
Assessment/Plan Assessment/Plan elevated ddimer due to covid19++ anemia likely chronic dsiease leukocytosis ac sob covid pna iv abx iv decadrone novnex regolar diet pulmo on case cont fio2 labs reviewed Subjective Constitutional: Denies: no symptoms, chills, fever, malaise, weakness, other HEENT: Denies: no symptoms, eye pain, blurred vision, tearing, double vision, ear pain, ear discharge, nose pain, nose congestion, throat pain, throat swelling, mouth pain, mouth swelling, other Cardiovascular: Denies: no symptoms, chest pain, edema, irregular heart rate, lightheadedness, palpitations, syncope, other Respiratory: Denies: no symptoms, cough, shortness of breath, SOB with excertion, SOB at rest, sputum, wheezing, other Endocrine: Denies: no symptoms, excessive sweating, flushing, intolerance to cold, intolerance to heat, increased hunger, increased thirst, increased urine, unexplained weight gain, unexplained weight loss, other Allergies: Coded Allergies: No Known Allergies (Unverified , 08/31/20) Subjective 09/08 labs reviewed, meds noted, labs reviewed, no fc 09/09 alert awake, is on 15l, no major changes, no bleeding, dw rn 09/10 is awake, alert, no bleeding, meds noted, labs reviewed Objective Objective Current Medications Medications (Trade) Dose Ordered Sig/Sami Route PRN Reason Start Time Stop Time Status Last Admin Dose Admin Acetaminophen (Tylenol) 650 mg Q6H PRN ORAL Mild Pain (Pain Scale 1-3) 08/31/20 12:15 09/30/20 12:14 Acetaminophen (Tylenol) 650 mg Q6H PRN ORAL For temp >100.4 08/31/20 12:30 09/30/20 12:29 Albuterol Sulfate (Proventil MDI) 2 puff TID INH 08/31/20 13:46 11/29/20 13:45 09/09/20 18:00 Enoxaparin Sodium (Lovenox) 40 mg DAILY SUBQ 09/01/20 09:00 11/30/20 08:59 09/09/20 09:10 Methylprednisolone Sodium Succinate (Solu-MEDROL) 20 mg EVERY 8 HOURS IVP 09/09/20 14:00 12/08/20 13:59 09/10/20 06:07 Last 24 Hour Vital Signs Date Time Temp Pulse Resp B/P (MAP) Pulse Ox O2 Delivery O2 Flow Rate FiO2 09/10/20 04:00 97.3 81 18 111/71 (84) 93 09/10/20 00:00 97.3 69 18 123/80 (94) 99 09/09/20 21:00 Non-Rebreather 15.0 09/09/20 20:00 98.1 105 18 121/73 (89) 98 09/09/20 16:00 97.9 111 18 121/74 (90) 95 111 09/09/20 12:00 97.7 91 19 115/70 (85) 95 91 09/09/20 09:00 Non-Rebreather 15.0 09/09/20 08:00 97.5 75 18 110/71 (84) 97 75 09/09/20 07:00 97 Non-Rebreather 15.0 100 09/09/20 04:04 98.0 78 118/72 (87) 09/08/20 20:17 Non-Rebreather 15.0 09/08/20 19:59 97.3 77 20 112/70 (84) 99 09/08/20 16:00 98.2 90 21 120/76 (91) 97 09/08/20 12:00 98.3 75 20 119/70 (86) 95 09/08/20 09:00 Non-Rebreather 15.0 09/08/20 08:00 98.5 77 20 121/77 (92) 97 09/08/20 07:00 97 Non-Rebreather 15.0 100 Intake and Output 09/09/20 09/10/20 19:00 07:00 Intake Total 720 ml 240 ml Output Total 900 ml 500 ml Balance -180 ml -260 ml Intake Oral 720 ml 240 ml Output Urine Total 900 ml 500 ml # Voids 2 1 Labs Test 09/07/20 14:19 09/08/20 06:00 D-Dimer 1.79 mg/L FEU (0.00-0.49) White Blood Count 8.8 K/UL (4.8-10.8) Red Blood Count 5.40 M/UL (4.70-6.10) Hemoglobin 12.5 G/DL (14.2-18.0) Hematocrit 41.6 % (42.0-52.0) Mean Corpuscular Volume 77 FL (80-99) Mean Corpuscular Hemoglobin 23.2 PG (27.0-31.0) Mean Corpuscular Hemoglobin Concent 30.1 G/DL (32.0-36.0) Red Cell Distribution Width 17.2 % (11.6-14.8) Platelet Count 558 K/UL (150-450) Mean Platelet Volume 7.2 FL (6.5-10.1) Neutrophils (%) (Auto) 69.5 % (45.0-75.0) Lymphocytes (%) (Auto) 21.6 % (20.0-45.0) Monocytes (%) (Auto) 6.8 % (1.0-10.0) Eosinophils (%) (Auto) 1.4 % (0.0-3.0) Basophils (%) (Auto) 0.7 % (0.0-2.0) Sodium Level 141 MMOL/L (136-145) Potassium Level 4.2 MMOL/L (3.5-5.1) Chloride Level 108 MMOL/L (98-107) Carbon Dioxide Level 25 MMOL/L (21-32) Anion Gap 8 mmol/L (5-15) Blood Urea Nitrogen 22 mg/dL (7-18) Creatinine 0.7 MG/DL (0.55-1.30) Estimat Glomerular Filtration Rate > 60 mL/min (>60) Glucose Level 88 MG/DL (74-106) Calcium Level 8.3 MG/DL (8.5-10.1) Total Bilirubin 0.3 MG/DL (0.2-1.0) Direct Bilirubin 0.1 MG/DL (0.0-0.3) Aspartate Amino Transf (AST/SGOT) 33 U/L (15-37) Alanine Aminotransferase (ALT/SGPT) 85 U/L (12-78) Alkaline Phosphatase 72 U/L (46-116) Total Protein 6.9 G/DL (6.4-8.2) Albumin 2.6 G/DL (3.4-5.0) Globulin 4.3 g/dL Albumin/Globulin Ratio 0.6 (1.0-2.7) Height (Feet): 5 Height (Inches): 5.00 Weight (Pounds): 176 Objective General Appearance: alert EENT: PERRL/EOMI Neck: supple Cardiovascular: normal rate Respiratory/Chest: lungs clear, normal breath sounds, no respiratory distress, rhonchi - bilaterally Abdomen: non tender, soft César Arnold MD Sep 10, 2020 06:36
--- NOTE | 2020-09-10 06:59 | NUR ---
NURSE HAND-OFF: Important Events on Shift: Non rebreather 15L Patient Status: Stable Diet: Regular Pending Orders: [] Pending Results/Labs:[] Pending MD notification:[] Latest Vital Signs: Temperature 97.3 , Pulse 81 , B/P 111 /71 , Respiratory Rate 18 , O2 SAT 93 , Bi-pap, O2 Flow Rate 15.0 . Vital Sign Comment: VS stable Latest Stone Fall Score: 20 Fall Risk: Low Risk Safety Measures: Call light Within Reach, Bed Alarm Zone 2, Side Rails Side Rails x2, Bed position Low and Locked. Fall Precautions: Yellow Socks Yellow Gown Patient Fall Education Report will be given to Raquel DONOVAN.
--- NOTE | 2020-09-10 07:45 | NUR ---
NURSE NOTES: Received report from ZION Wyman. Patient awake, A&Ox4, with non rebreather 15L saturating 94%, breathing is even and unlabored. No acute distress noted. Denied any pain at this time. IV site intact and patent H/L. Bed low and locked. Call light within reach. Will continue to monitor.
[2020-09-10 08:00] VITALS: BP 111/70
--- NOTE | 2020-09-10 08:32 | NUR ---
RD ASSESSMENT & RECOMMENDATIONS SEE CARE ACTIVITY FOR COMPLETE ASSESSMENT DAILY ESTIMATED NEEDS: Needs based on Pulmonary 66kg abw 25-30 kcals/kg [id number] total kcals 1-1.5 g protein/kg 66-99 g total protein 25-30 mL/kg [id number] total fluid mLs NUTRITION DIAGNOSIS: Altered nutrition related lab values r/t clinical status as evidenced by elev BUN(19 ->22), elev LFT's, trending down, covid ++, on NRB mask. CURRENT DIET: Regular PO DIET RECOMMENDATIONS: Regular diet, texture as tolerated ADDITIONAL RECOMMENDATIONS: 1) Monitor respiratory status, ability to maintain adequate nutritional intake -> on NRB mask at this time 2) On steroidal med, monitor BG, need for carb controlled diet or niss 3) Daily calibrated bed scale wts 4) Updated BMP: last BUN trending up, monitor hydration status monitor need for IVF, rec to encourage fluid intake
[2020-09-10] MEDS: Albuterol 90mcg Inhaler 8gm INH SCH ×3 (09:00→18:26)
[2020-09-10] MEDS: Enoxaparin 40mg Inj SUBQ SCH (09:08)
--- NOTE | 2020-09-10 10:00 | Pulmonology Progress Note ---
Subjective ROS Limited/Unobtainable: Yes Interval Events: None new Constitutional: Denies: fever HEENT: Repors: no symptoms Respiratory: Reports: no symptoms Cardiovascular: Reports: no symptoms Gastrointestinal/Abdominal: Reports: no symptoms Musculoskeletal: Reports: pain Allergies: Coded Allergies: No Known Allergies (Unverified , 08/31/20) Objective Last 24 Hour Vital Signs Date Time Temp Pulse Resp B/P (MAP) Pulse Ox O2 Delivery O2 Flow Rate FiO2 09/10/20 04:00 97.3 81 18 111/71 (84) 93 09/10/20 00:00 97.3 69 18 123/80 (94) 99 09/09/20 21:00 Non-Rebreather 15.0 09/09/20 20:00 98.1 105 18 121/73 (89) 98 09/09/20 16:00 97.9 111 18 121/74 (90) 95 111 09/09/20 12:00 97.7 91 19 115/70 (85) 95 91 Intake and Output 09/09/20 09/10/20 19:00 07:00 Intake Total 720 ml 240 ml Output Total 900 ml 500 ml Balance -180 ml -260 ml Intake Oral 720 ml 240 ml Output Urine Total 900 ml 500 ml # Voids 2 1 General Appearance: no acute distress HEENT: normocephalic Respiratory: decreased breath sounds Cardiovascular: normal peripheral pulses, normal rate Abdomen: normal bowel sounds Current Medications Medications (Trade) Dose Ordered Sig/Sami Route PRN Reason Start Time Stop Time Status Last Admin Dose Admin Acetaminophen (Tylenol) 650 mg Q6H PRN ORAL Mild Pain (Pain Scale 1-3) 08/31/20 12:15 09/30/20 12:14 Acetaminophen (Tylenol) 650 mg Q6H PRN ORAL For temp >100.4 08/31/20 12:30 09/30/20 12:29 Albuterol Sulfate (Proventil MDI) 2 puff TID INH 08/31/20 13:46 11/29/20 13:45 09/09/20 18:00 Enoxaparin Sodium (Lovenox) 40 mg DAILY SUBQ 09/01/20 09:00 11/30/20 08:59 09/10/20 09:08 Methylprednisolone Sodium Succinate (Solu-MEDROL) 20 mg EVERY 8 HOURS IVP 09/09/20 14:00 12/08/20 13:59 09/10/20 06:07 Assessment/Plan Assessment/Plan 1. COVID-19 pneumonia - COVID-19 PCR positive (08/31) - now off broad-spectrum Abx per ID - s/p remdesivir (09/05-09/08) - CXR (09/07) Persistent patchy bilateral opacities 2. Elevated inflammatory markers. - on Lovenox for DVT ppx - repeat D-dimer trending down - repeat Venous duplex negative for DVT 3. Hypoxemia. - s/p decadron (09/01-09/09); now on solumedrol 20 Q8hr - on NRB saturating well; wean as tolerated; failed weaning again Continue current management The care for this patient was discussed with my supervising physician Time spent for this case was approximately 31 minutes Titi Zhang Sep 10, 2020 10:00
--- NOTE | 2020-09-10 11:06 | Infectious Diseases Prog Note ---
Assessment/Plan Assessment/Plan antibiotics : none A 1. covid 19 pneumonia on 10 liters O2 with 94 % saturation s/p remdesivir 2. respiratory failure P 1. continue solumedrol 2. will follow up cultures 3. continue isolation Subjective Constitutional: Denies: fever, chills Respiratory: Reports: shortness of breath, dry cough - decreased Gastrointestinal/Abdominal: Denies: nausea, vomiting, diarrhea Musculoskeletal: Denies: pain Allergies: Coded Allergies: No Known Allergies (Unverified , 08/31/20) Objective Last 24 Hour Vital Signs Date Time Temp Pulse Resp B/P (MAP) Pulse Ox O2 Delivery O2 Flow Rate FiO2 09/10/20 10:49 99 18 94 Venturi Mask 10.0 50 09/10/20 10:47 94 Venturi Mask 10.0 50 09/10/20 10:23 96 Non-Rebreather 15.0 100 09/10/20 09:00 Non-Rebreather 15.0 09/10/20 08:00 97.8 102 18 111/70 (84) 94 09/10/20 04:00 97.3 81 18 111/71 (84) 93 09/10/20 00:00 97.3 69 18 123/80 (94) 99 09/09/20 21:00 Non-Rebreather 15.0 09/09/20 20:00 98.1 105 18 121/73 (89) 98 09/09/20 16:00 97.9 111 18 121/74 (90) 95 111 09/09/20 12:00 97.7 91 19 115/70 (85) 95 91 Height (Feet): 5 Height (Inches): 5.00 Weight (Pounds): 176 Current Medications Medications (Trade) Dose Ordered Sig/Sami Route PRN Reason Start Time Stop Time Status Last Admin Dose Admin Acetaminophen (Tylenol) 650 mg Q6H PRN ORAL Mild Pain (Pain Scale 1-3) 08/31/20 12:15 09/30/20 12:14 Acetaminophen (Tylenol) 650 mg Q6H PRN ORAL For temp >100.4 08/31/20 12:30 09/30/20 12:29 Albuterol Sulfate (Proventil MDI) 2 puff TID INH 08/31/20 13:46 11/29/20 13:45 09/10/20 09:00 Enoxaparin Sodium (Lovenox) 40 mg DAILY SUBQ 09/01/20 09:00 11/30/20 08:59 09/10/20 09:08 Methylprednisolone Sodium Succinate (Solu-MEDROL) 20 mg EVERY 8 HOURS IVP 09/09/20 14:00 12/08/20 13:59 09/10/20 06:07 Demetra Dickerson MD Sep 10, 2020 11:06
[2020-09-10 12:00] VITALS: BP 114/73
--- NOTE | 2020-09-10 15:27 | NUR ---
CASE MANAGEMENT:REVIEW 09/10/20 SI: COVID PNEUMONIA. 97.8 102 18 111/70 94% ON 15L/100% NRB NO LABS FOR TODAY IS: IV SOLUMEDROL 20MG Q8HRS LOVENOX SQ QD IV DECADRON QD ALBUTEROL INH TID : NOW ON TELEMETRY UNIT DCP: FROM HOME PLAN: COMPLETED REMDESIVIR WEAN OXYGEN IF ABLE
[2020-09-10 16:00] VITALS: BP 131/74
--- NOTE | 2020-09-10 16:56 | General Progress Note ---
Subjective Allergies: Coded Allergies: No Known Allergies (Unverified , 08/31/20) Subjective doing ok on 15 litre fio2 on ventri mask oriented Objective Last 24 Hour Vital Signs Date Time Temp Pulse Resp B/P (MAP) Pulse Ox O2 Delivery O2 Flow Rate FiO2 09/10/20 12:00 97.5 105 18 114/73 (87) 94 09/10/20 10:49 99 18 94 Venturi Mask 10.0 50 09/10/20 10:47 94 Venturi Mask 10.0 50 09/10/20 10:23 96 Non-Rebreather 15.0 100 09/10/20 09:00 Non-Rebreather 15.0 09/10/20 08:00 97.8 102 18 111/70 (84) 94 09/10/20 08:00 97.8 102 18 111/70 (84) 94 09/10/20 04:00 97.3 81 18 111/71 (84) 93 09/10/20 00:00 97.3 69 18 123/80 (94) 99 09/09/20 21:00 Non-Rebreather 15.0 09/09/20 20:00 98.1 105 18 121/73 (89) 98 Intake and Output 09/09/20 09/10/20 19:00 07:00 Intake Total 720 ml 240 ml Output Total 900 ml 500 ml Balance -180 ml -260 ml Intake Oral 720 ml 240 ml Output Urine Total 900 ml 500 ml # Voids 2 1 Height (Feet): 5 Height (Inches): 5.00 Weight (Pounds): 176 General Appearance: alert EENT: PERRL/EOMI Neck: supple Cardiovascular: regular rhythm Respiratory/Chest: crackles/rales Abdomen: non tender, soft Assessment/Plan Assessment/Plan: ac sob better covid pna iv abx iv decadrone novnex regolar diet pulmo on case cont fio2 Brian Fragoso MD Sep 10, 2020 16:56
--- NOTE | 2020-09-10 19:34 | NUR ---
NURSE HAND-OFF: Important Events on Shift:[Wean with Venturi mask, saturating 94%, no SOB] Patient Status: [stable] Diet: [reg] Pending Orders: [] Pending Results/Labs:[] Pending MD notification:[] Latest Vital Signs: Temperature 97.5 , Pulse 100 , B/P 131 /74 , Respiratory Rate 20 , O2 SAT 95 , Bi-pap, O2 Flow Rate 10.0 . Vital Sign Comment: [] Latest Stone Fall Score: 20 Fall Risk: Low Risk Safety Measures: Call light Within Reach, Bed Alarm Zone 2, Side Rails Side Rails x2, Bed position Low and Locked. Fall Precautions: Yellow Socks Yellow Gown Patient Fall Education Report given to [ZION Wyman].
--- NOTE | 2020-09-10 19:45 | NUR ---
NURSE NOTES: Received report from Raquel DONOVAN. Patient is awake, alert and oriented x4. Italian speaking. On Venturi mask 10L, breathing is even and unlabored. O2 saturating 95%. No complains of pain or distress noted. Covid isolation noted. IV left FA intact and patent with no bleeding noted. Bed low and locked. Call light within reach.
[2020-09-10 20:00] VITALS: BP 127/81
[2020-09-10] MEDS ORDERED: NS 275ml ONE (21:23)
[2020-09-10] MEDS ORDERED: Tubing IV Secondary IV ONE (21:23)
[2020-09-11] VITALS: BP 114/73
[2020-09-11 04:00] VITALS: BP 108/73
[2020-09-11] MEDS: Solu-MEDROL 40mg Inj IVP SCH ×3 (05:13→22:30)
--- NOTE | 2020-09-11 07:00 | Hematology/Onc Progress Note ---
Assessment/Plan Assessment/Plan elevated ddimer due to covid19++ anemia likely chronic dsiease leukocytosis ac sob covid pna iv abx iv decadrone novnex regolar diet pulmo on case cont fio2 labs reviewed Subjective Constitutional: Denies: no symptoms, chills, fever, malaise, weakness, other HEENT: Denies: no symptoms, eye pain, blurred vision, tearing, double vision, ear pain, ear discharge, nose pain, nose congestion, throat pain, throat swelling, mouth pain, mouth swelling, other Cardiovascular: Denies: no symptoms, chest pain, edema, irregular heart rate, lightheadedness, palpitations, syncope, other Respiratory: Denies: no symptoms, cough, shortness of breath, SOB with excertion, SOB at rest, sputum, wheezing, other Gastrointestinal/Abdominal: Denies: no symptoms, abdomen distended, abdominal pain, black stools, tarry stools, blood in stool, constipated, diarrhea, difficulty swallowing, nausea, poor appetite, poor fluid intake, rectal bleeding, vomiting, other Genitourinary: Denies: no symptoms, burning, discharge, frequency, flank pain, hematuria, incontinence, pain, urgency, other Neurologic/Psychiatric: Denies: no symptoms, anxiety, depressed, emotional problems, headache, numbness, paresthesia, pre-existing deficit, seizure, tingling, tremors, weakness, other Endocrine: Denies: no symptoms, excessive sweating, flushing, intolerance to cold, intolerance to heat, increased hunger, increased thirst, increased urine, unexplained weight gain, unexplained weight loss, other Allergies: Coded Allergies: No Known Allergies (Unverified , 08/31/20) Subjective 09/08 labs reviewed, meds noted, labs reviewed, no fc 09/09 alert awake, is on 15l, no major changes, no bleeding, dw rn 09/10 is awake, alert, no bleeding, meds noted, labs reviewed 09/11 labs are pending, no bleeding, meds noted, plt pending Objective Objective Current Medications Medications (Trade) Dose Ordered Sig/Sami Route PRN Reason Start Time Stop Time Status Last Admin Dose Admin Acetaminophen (Tylenol) 650 mg Q6H PRN ORAL Mild Pain (Pain Scale 1-3) 08/31/20 12:15 09/30/20 12:14 Acetaminophen (Tylenol) 650 mg Q6H PRN ORAL For temp >100.4 08/31/20 12:30 09/30/20 12:29 Albuterol Sulfate (Proventil MDI) 2 puff TID INH 08/31/20 13:46 11/29/20 13:45 09/10/20 18:26 Enoxaparin Sodium (Lovenox) 40 mg DAILY SUBQ 09/01/20 09:00 11/30/20 08:59 09/10/20 09:08 Methylprednisolone Sodium Succinate (Solu-MEDROL) 20 mg EVERY 8 HOURS IVP 09/09/20 14:00 12/08/20 13:59 09/11/20 05:13 Last 24 Hour Vital Signs Date Time Temp Pulse Resp B/P (MAP) Pulse Ox O2 Delivery O2 Flow Rate FiO2 09/11/20 04:00 97.5 74 18 108/73 (85) 93 09/11/20 00:00 98.1 71 18 114/73 (87) 96 09/10/20 21:43 95 Venturi Mask 10.0 50 09/10/20 21:00 Venturi Mask 10.0 09/10/20 20:00 97.9 96 18 127/81 (96) 95 09/10/20 16:00 97.5 100 20 131/74 (93) 95 09/10/20 12:00 97.5 105 18 114/73 (87) 94 09/10/20 10:49 99 18 94 Venturi Mask 10.0 50 09/10/20 10:47 94 Venturi Mask 10.0 50 09/10/20 10:23 96 Non-Rebreather 15.0 100 09/10/20 09:00 Non-Rebreather 15.0 09/10/20 08:00 97.8 102 18 111/70 (84) 94 09/10/20 08:00 97.8 102 18 111/70 (84) 94 09/10/20 04:00 97.3 81 18 111/71 (84) 93 09/10/20 00:00 97.3 69 18 123/80 (94) 99 09/09/20 21:00 Non-Rebreather 15.0 09/09/20 20:00 98.1 105 18 121/73 (89) 98 09/09/20 16:00 97.9 111 18 121/74 (90) 95 111 09/09/20 12:00 97.7 91 19 115/70 (85) 95 91 09/09/20 09:00 Non-Rebreather 15.0 09/09/20 08:00 97.5 75 18 110/71 (84) 97 75 09/09/20 07:00 97 Non-Rebreather 15.0 100 Intake and Output 09/10/20 09/11/20 19:00 07:00 Intake Total 400 ml 400 ml Output Total 700 ml 1000 ml Balance -300 ml -600 ml Intake Oral 400 ml 400 ml Output Urine Total 700 ml 1000 ml # Voids 3 3 # Bowel Movements 1 Height (Feet): 5 Height (Inches): 5.00 Weight (Pounds): 176 Objective General Appearance: alert EENT: PERRL/EOMI Neck: supple Cardiovascular: normal rate Respiratory/Chest: lungs clear, normal breath sounds, no respiratory distress, rhonchi - bilaterally Abdomen: non tender, soft César Arnold MD Sep 11, 2020 07:00
--- NOTE | 2020-09-11 07:30 | NUR ---
NURSE HAND-OFF: Important Events on Shift: Venturi mask 10L saturating 93-98% Patient Status: Stable Diet: Regular Pending Orders: [] Pending Results/Labs:[] Pending MD notification:[] Latest Vital Signs: Temperature 97.5 , Pulse 74 , B/P 108 /73 , Respiratory Rate 18 , O2 SAT 93 , Bi-pap, O2 Flow Rate 10.0 . Vital Sign Comment: VS stable Latest Stone Fall Score: 20 Fall Risk: Low Risk Safety Measures: Call light Within Reach, Bed Alarm Zone 2, Side Rails Side Rails x2, Bed position Low and Locked. Fall Precautions: Yellow Socks Yellow Gown Patient Fall Education Report given to Raquel DONOVAN.
--- NOTE | 2020-09-11 07:46 | NUR ---
CASE MANAGEMENT:REVIEW 09/11/20 SI: COVID PNEUMONIA. 97.5 74 18 108/73 93% ON 10L/50% NRB NO LABS IS: IV SOLUMEDROL 20MG Q8HRS LOVENOX SQ QD ALBUTEROL INH TID : NOW ON TELEMETRY UNIT DCP: FROM HOME PLAN: COMPLETED REMDESIVIR WEAN OXYGEN IF ABLE
[2020-09-11 08:00] VITALS: BP 123/62
[2020-09-11] MEDS: Enoxaparin 40mg Inj SUBQ SCH (08:50)
[2020-09-11] MEDS: Albuterol 90mcg Inhaler 8gm INH SCH ×3 (08:55→18:07)
--- NOTE | 2020-09-11 09:34 | General Progress Note ---
Subjective Allergies: Coded Allergies: No Known Allergies (Unverified , 08/31/20) Subjective doing ok on 10 lires fio2 oriented Objective Last 24 Hour Vital Signs Date Time Temp Pulse Resp B/P (MAP) Pulse Ox O2 Delivery O2 Flow Rate FiO2 09/11/20 09:00 Venturi Mask 10.0 09/11/20 08:00 97.5 100 20 123/62 (82) 94 09/11/20 04:00 97.5 74 18 108/73 (85) 93 09/11/20 00:00 98.1 71 18 114/73 (87) 96 09/10/20 21:43 95 Venturi Mask 10.0 50 09/10/20 21:00 Venturi Mask 10.0 09/10/20 20:00 97.9 96 18 127/81 (96) 95 09/10/20 16:00 97.5 100 20 131/74 (93) 95 09/10/20 12:00 97.5 105 18 114/73 (87) 94 09/10/20 10:49 99 18 94 Venturi Mask 10.0 50 09/10/20 10:47 94 Venturi Mask 10.0 50 09/10/20 10:23 96 Non-Rebreather 15.0 100 Intake and Output 09/10/20 09/11/20 19:00 07:00 Intake Total 400 ml 400 ml Output Total 700 ml 1000 ml Balance -300 ml -600 ml Intake Oral 400 ml 400 ml Output Urine Total 700 ml 1000 ml # Voids 3 3 # Bowel Movements 1 Height (Feet): 5 Height (Inches): 5.00 Weight (Pounds): 176 General Appearance: no apparent distress EENT: PERRL/EOMI Neck: supple Cardiovascular: regular rhythm Respiratory/Chest: crackles/rales Abdomen: non tender, soft Extremities: non-tender Assessment/Plan Assessment/Plan: ac sob better covid pna dc iv abx iv decadrone novnex regolar diet pulmo on case cont fio2 check labs Brian Fragoso MD Sep 11, 2020 09:34
--- NOTE | 2020-09-11 10:40 | Infectious Diseases Prog Note ---
Assessment/Plan Assessment/Plan antibiotics : none A 1. covid 19 pneumonia on 10 liters O2 with 94 % saturation s/p remdesivir 2. respiratory failure P 1. continue solumedrol 2. will follow up cultures 3. continue isolation Subjective Constitutional: Denies: fever, chills Respiratory: Reports: shortness of breath - less, dry cough - less Gastrointestinal/Abdominal: Denies: nausea, vomiting, diarrhea Musculoskeletal: Denies: pain Allergies: Coded Allergies: No Known Allergies (Unverified , 08/31/20) Objective Last 24 Hour Vital Signs Date Time Temp Pulse Resp B/P (MAP) Pulse Ox O2 Delivery O2 Flow Rate FiO2 09/11/20 09:00 Venturi Mask 10.0 09/11/20 08:00 97.5 100 20 123/62 (82) 94 09/11/20 04:00 97.5 74 18 108/73 (85) 93 09/11/20 00:00 98.1 71 18 114/73 (87) 96 09/10/20 21:43 95 Venturi Mask 10.0 50 09/10/20 21:00 Venturi Mask 10.0 09/10/20 20:00 97.9 96 18 127/81 (96) 95 09/10/20 16:00 97.5 100 20 131/74 (93) 95 09/10/20 12:00 97.5 105 18 114/73 (87) 94 09/10/20 10:49 99 18 94 Venturi Mask 10.0 50 09/10/20 10:47 94 Venturi Mask 10.0 50 Height (Feet): 5 Height (Inches): 5.00 Weight (Pounds): 176 Current Medications Medications (Trade) Dose Ordered Sig/Sami Route PRN Reason Start Time Stop Time Status Last Admin Dose Admin Acetaminophen (Tylenol) 650 mg Q6H PRN ORAL Mild Pain (Pain Scale 1-3) 08/31/20 12:15 09/30/20 12:14 Acetaminophen (Tylenol) 650 mg Q6H PRN ORAL For temp >100.4 08/31/20 12:30 09/30/20 12:29 Albuterol Sulfate (Proventil MDI) 2 puff TID INH 08/31/20 13:46 11/29/20 13:45 09/11/20 08:55 Enoxaparin Sodium (Lovenox) 40 mg DAILY SUBQ 09/01/20 09:00 11/30/20 08:59 09/11/20 08:50 Methylprednisolone Sodium Succinate (Solu-MEDROL) 20 mg EVERY 8 HOURS IVP 09/09/20 14:00 12/08/20 13:59 09/11/20 05:13 Demetra Dickerson MD Sep 11, 2020 10:40
[2020-09-11 12:00] VITALS: BP 133/66
--- NOTE | 2020-09-11 15:43 | Pulmonology Progress Note ---
Subjective ROS Limited/Unobtainable: No Interval Events: None new Constitutional: Denies: fever, chills HEENT: Repors: no symptoms Respiratory: Reports: no symptoms Cardiovascular: Reports: no symptoms Gastrointestinal/Abdominal: Denies: nausea, vomiting, diarrhea Musculoskeletal: Denies: pain Allergies: Coded Allergies: No Known Allergies (Unverified , 08/31/20) Objective Last 24 Hour Vital Signs Date Time Temp Pulse Resp B/P (MAP) Pulse Ox O2 Delivery O2 Flow Rate FiO2 09/11/20 12:00 97.5 95 20 133/66 (88) 95 09/11/20 09:00 Venturi Mask 10.0 09/11/20 08:00 97.5 100 20 123/62 (82) 94 09/11/20 04:00 97.5 74 18 108/73 (85) 93 09/11/20 00:00 98.1 71 18 114/73 (87) 96 09/10/20 21:43 95 Venturi Mask 10.0 50 09/10/20 21:00 Venturi Mask 10.0 09/10/20 20:00 97.9 96 18 127/81 (96) 95 09/10/20 16:00 97.5 100 20 131/74 (93) 95 Intake and Output 09/10/20 09/11/20 19:00 07:00 Intake Total 400 ml 400 ml Output Total 700 ml 1000 ml Balance -300 ml -600 ml Intake Oral 400 ml 400 ml Output Urine Total 700 ml 1000 ml # Voids 3 3 # Bowel Movements 1 General Appearance: no acute distress HEENT: normocephalic Respiratory: decreased breath sounds Cardiovascular: normal peripheral pulses, normal rate Abdomen: normal bowel sounds Current Medications Medications (Trade) Dose Ordered Sig/Sami Route PRN Reason Start Time Stop Time Status Last Admin Dose Admin Acetaminophen (Tylenol) 650 mg Q6H PRN ORAL Mild Pain (Pain Scale 1-3) 08/31/20 12:15 09/30/20 12:14 Acetaminophen (Tylenol) 650 mg Q6H PRN ORAL For temp >100.4 08/31/20 12:30 09/30/20 12:29 Albuterol Sulfate (Proventil MDI) 2 puff TID INH 08/31/20 13:46 11/29/20 13:45 09/11/20 13:00 Enoxaparin Sodium (Lovenox) 40 mg DAILY SUBQ 09/01/20 09:00 11/30/20 08:59 09/11/20 08:50 Methylprednisolone Sodium Succinate (Solu-MEDROL) 20 mg EVERY 8 HOURS IVP 09/09/20 14:00 12/08/20 13:59 09/11/20 14:07 Assessment/Plan Assessment/Plan 1. COVID-19 pneumonia - COVID-19 PCR positive (08/31) - now off broad-spectrum Abx per ID - s/p remdesivir (09/05-09/08) - CXR (09/07) Persistent patchy bilateral opacities 2. Elevated inflammatory markers. - on Lovenox for DVT ppx - repeat D-dimer trending down - repeat Venous duplex negative for DVT 3. Hypoxemia. - s/p decadron (09/01-09/09); now on solumedrol 20 Q8hr - Now on 6L Venturi mask saturating well; wean as tolerated Continue current management The care for this patient was discussed with my supervising physician Time spent for this case was approximately 31 minutes Titi Zhang Sep 11, 2020 15:43
[2020-09-11 16:00] VITALS: BP 128/79
--- NOTE | 2020-09-11 19:38 | NUR ---
NURSE HAND-OFF: Important Events on Shift:[Pt on venturi mask 6L satting 94%. planning to wean off and switch to NC if pt tolerate] Patient Status: [] Diet: [reg] Pending Orders: [] Pending Results/Labs:[] Pending MD notification:[] Latest Vital Signs: Temperature 97.5 , Pulse 98 , B/P 128 /79 , Respiratory Rate 20 , O2 SAT 94 , Bi-pap, O2 Flow Rate 10.0 . Vital Sign Comment: [stable] Latest Stone Fall Score: 20 Fall Risk: Low Risk Safety Measures: Call light Within Reach, Bed Alarm Zone 2, Side Rails Side Rails x2, Bed position Low and Locked. Fall Precautions: Yellow Socks Yellow Gown Patient Fall Education Report given to [Robb,RN].
[2020-09-11 20:00] VITALS: BP 118/69
--- NOTE | 2020-09-11 20:35 | NUR ---
NURSE NOTES: Pt is in bed, awake and alert. No acute distress noted. Vitals stable. Pt is on venturi mask 6L O2 sat 92-93%.Oxygen will be titrated down as tolerated. Fall precautions in place. Pt will be monitored.
[2020-09-12] VITALS: BP 116/65
--- NOTE | 2020-09-12 03:53 | NUR ---
NURSE NOTES: Pt is in bed, asleep. Venturi mask in place.
[2020-09-12 04:00] VITALS: BP 114/67
[2020-09-12] MEDS: Solu-MEDROL 40mg Inj IVP SCH ×3 (04:55→22:18)
[2020-09-12 06:34] LABS: HEMATOCRIT 41.7 % (42.0-52.0); HEMOGLOBIN 12.7 G/DL (14.2-18.0); MEAN CORPUSCULAR VOLUME 79 FL (80-99); PLATELET COUNT 469 K/UL (150-450); RED CELL DISTRIBUTION WIDTH 19.3 % (11.6-14.8); WHITE BLOOD COUNT 9.5 K/UL (4.8-10.8)
--- NOTE | 2020-09-12 06:50 | Hematology/Onc Progress Note ---
Assessment/Plan Assessment/Plan elevated ddimer due to covid19++ anemia likely chronic dsiease leukocytosis ac sob covid pna iv abx iv decadrone novnex regolar diet pulmo on case cont fio2 labs reviewed Subjective HEENT: Denies: no symptoms, eye pain, blurred vision, tearing, double vision, ear pain, ear discharge, nose pain, nose congestion, throat pain, throat swelling, mouth pain, mouth swelling, other Cardiovascular: Denies: no symptoms, chest pain, edema, irregular heart rate, lightheadedness, palpitations, syncope, other Respiratory: Denies: no symptoms, cough, shortness of breath, SOB with excertion, SOB at rest, sputum, wheezing, other Gastrointestinal/Abdominal: Denies: no symptoms, abdomen distended, abdominal pain, black stools, tarry stools, blood in stool, constipated, diarrhea, difficulty swallowing, nausea, poor appetite, poor fluid intake, rectal bleeding, vomiting, other Genitourinary: Denies: no symptoms, burning, discharge, frequency, flank pain, hematuria, incontinence, pain, urgency, other Neurologic/Psychiatric: Denies: no symptoms, anxiety, depressed, emotional problems, headache, numbness, paresthesia, pre-existing deficit, seizure, tingling, tremors, weakness, other Endocrine: Denies: no symptoms, excessive sweating, flushing, intolerance to cold, intolerance to heat, increased hunger, increased thirst, increased urine, unexplained weight gain, unexplained weight loss, other Hematologic/Lymphatic: Denies: no symptoms, anemia, easy bleeding, easy bruising, adenopathy, other Allergies: Coded Allergies: No Known Allergies (Unverified , 08/31/20) Subjective 09/08 labs reviewed, meds noted, labs reviewed, no fc 09/09 alert awake, is on 15l, no major changes, no bleeding, dw rn 09/10 is awake, alert, no bleeding, meds noted, labs reviewed 09/11 labs are pending, no bleeding, meds noted, plt pending 09/12 comfortable, 6l venturi, no bleeding, labs reviewed Objective Objective Current Medications Medications (Trade) Dose Ordered Sig/Sami Route PRN Reason Start Time Stop Time Status Last Admin Dose Admin Acetaminophen (Tylenol) 650 mg Q6H PRN ORAL Mild Pain (Pain Scale 1-3) 08/31/20 12:15 09/30/20 12:14 Acetaminophen (Tylenol) 650 mg Q6H PRN ORAL For temp >100.4 08/31/20 12:30 09/30/20 12:29 Albuterol Sulfate (Proventil MDI) 2 puff TID INH 08/31/20 13:46 11/29/20 13:45 09/11/20 18:07 Enoxaparin Sodium (Lovenox) 40 mg DAILY SUBQ 09/01/20 09:00 11/30/20 08:59 09/11/20 08:50 Methylprednisolone Sodium Succinate (Solu-MEDROL) 20 mg EVERY 8 HOURS IVP 09/09/20 14:00 12/08/20 13:59 09/12/20 04:55 Last 24 Hour Vital Signs Date Time Temp Pulse Resp B/P (MAP) Pulse Ox O2 Delivery O2 Flow Rate FiO2 09/12/20 04:00 98.2 72 20 114/67 (83) 93 09/12/20 00:00 97.4 74 20 116/65 (82) 93 09/11/20 21:00 Venturi Mask 10.0 09/11/20 20:00 97.7 79 20 118/69 (85) 93 09/11/20 16:00 97.5 98 20 128/79 (95) 94 09/11/20 12:00 97.5 95 20 133/66 (88) 95 09/11/20 09:00 Venturi Mask 10.0 09/11/20 08:00 97.5 100 20 123/62 (82) 94 09/11/20 04:00 97.5 74 18 108/73 (85) 93 09/11/20 00:00 98.1 71 18 114/73 (87) 96 09/10/20 21:43 95 Venturi Mask 10.0 50 09/10/20 21:00 Venturi Mask 10.0 09/10/20 20:00 97.9 96 18 127/81 (96) 95 09/10/20 16:00 97.5 100 20 131/74 (93) 95 09/10/20 12:00 97.5 105 18 114/73 (87) 94 09/10/20 10:49 99 18 94 Venturi Mask 10.0 50 09/10/20 10:47 94 Venturi Mask 10.0 50 09/10/20 10:23 96 Non-Rebreather 15.0 100 09/10/20 09:00 Non-Rebreather 15.0 09/10/20 08:00 97.8 102 18 111/70 (84) 94 09/10/20 08:00 97.8 102 18 111/70 (84) 94 Intake and Output 09/11/20 09/12/20 19:00 07:00 Intake Total 900 ml 700 ml Balance 900 ml 700 ml Intake Oral 900 ml 700 ml # Voids 4 2 Labs Test 09/12/20 05:50 White Blood Count 9.5 K/UL (4.8-10.8) Red Blood Count 5.30 M/UL (4.70-6.10) Hemoglobin 12.7 G/DL (14.2-18.0) Hematocrit 41.7 % (42.0-52.0) Mean Corpuscular Volume 79 FL (80-99) Mean Corpuscular Hemoglobin 23.9 PG (27.0-31.0) Mean Corpuscular Hemoglobin Concent 30.4 G/DL (32.0-36.0) Red Cell Distribution Width 19.3 % (11.6-14.8) Platelet Count 469 K/UL (150-450) Mean Platelet Volume 6.9 FL (6.5-10.1) Neutrophils (%) (Auto) % (45.0-75.0) Lymphocytes (%) (Auto) % (20.0-45.0) Monocytes (%) (Auto) % (1.0-10.0) Eosinophils (%) (Auto) % (0.0-3.0) Basophils (%) (Auto) % (0.0-2.0) Height (Feet): 5 Height (Inches): 5.00 Weight (Pounds): 176 Objective General Appearance: alert EENT: PERRL/EOMI Neck: supple Cardiovascular: normal rate Respiratory/Chest: lungs clear, normal breath sounds, no respiratory distress, rhonchi - bilaterally Abdomen: non tender, soft César Arnold MD Sep 12, 2020 06:50
[2020-09-12 07:10] LABS: ALANINE AMINOTRANSFERASE 65 U/L (12-78); ALBUMIN 2.8 G/DL (3.4-5.0); ALBUMIN/GLOBULIN RATIO 0.7 (1.0-2.7); ALKALINE PHOSPHATASE 79 U/L (46-116); ANION GAP 7 mmol/L (5-15); ASPARTATE AMINO TRANSFERASE 18 U/L (15-37); BILIRUBIN,TOTAL 0.6 MG/DL (0.2-1.0); BLOOD UREA NITROGEN 17 mg/dL (7-18); CALCIUM 8.3 MG/DL (8.5-10.1); CARBON DIOXIDE 26 MMOL/L (21-32); CHLORIDE 106 MMOL/L (98-107); CREATININE 0.8 MG/DL (0.55-1.30); POTASSIUM 4.5 MMOL/L (3.5-5.1); SODIUM 139 MMOL/L (136-145)
--- NOTE | 2020-09-12 07:30 | NUR ---
HAND OFF NOTE: Report given to ZION Garcia. Informed that pt is fall risk.
[2020-09-12 08:00] VITALS: BP 112/81
[2020-09-12] MEDS: Albuterol 90mcg Inhaler 8gm INH SCH ×3 (08:51→18:45)
[2020-09-12] MEDS: Enoxaparin 40mg Inj SUBQ SCH (08:52)
--- NOTE | 2020-09-12 08:56 | NUR ---
NURSE NOTES: Patient awake and alert and oriented,respirations unlabored.IV saline lock left forearm in place,Patient on Venturi mask [address] Titus here to see patient and wants patient to try to wean patient down to 4-5 liter on Venturi mask.If o2 remains above 90% then try to wean patient to 5-6 liter on N/C.Patient ate breakfast.Call light within reach. Addendum: 09/12/20 at 1147 by CONI DAY RN RN per DR Titus patient wean to N/C on 4 Liters 02 sat at this time 93 %.
--- NOTE | 2020-09-12 10:44 | Pulmonology Progress Note ---
Subjective ROS Limited/Unobtainable: No Interval Events: None new Constitutional: Denies: fever, chills HEENT: Repors: no symptoms Respiratory: Reports: no symptoms Cardiovascular: Reports: no symptoms Gastrointestinal/Abdominal: Denies: nausea, vomiting, diarrhea Musculoskeletal: Denies: pain Allergies: Coded Allergies: No Known Allergies (Unverified , 08/31/20) Objective Last 24 Hour Vital Signs Date Time Temp Pulse Resp B/P (MAP) Pulse Ox O2 Delivery O2 Flow Rate FiO2 09/12/20 04:00 98.2 72 20 114/67 (83) 93 09/12/20 00:00 97.4 74 20 116/65 (82) 93 09/11/20 21:00 Venturi Mask 10.0 09/11/20 20:00 97.7 79 20 118/69 (85) 93 09/11/20 16:00 97.5 98 20 128/79 (95) 94 09/11/20 12:00 97.5 95 20 133/66 (88) 95 Intake and Output 09/11/20 09/12/20 19:00 07:00 Intake Total 900 ml 700 ml Balance 900 ml 700 ml Intake Oral 900 ml 700 ml # Voids 4 2 General Appearance: no acute distress HEENT: normocephalic Respiratory: decreased breath sounds Cardiovascular: normal peripheral pulses, normal rate Abdomen: normal bowel sounds Laboratory Tests 09/12/20 05:50: White Blood Count 9.5, Red Blood Count 5.30, Hemoglobin 12.7L, Hematocrit 41.7L, Mean Corpuscular Volume 79L, Mean Corpuscular Hemoglobin 23.9L, Mean Corpuscular Hemoglobin Concent 30.4L, Red Cell Distribution Width 19.3H, Platelet Count 469H , Mean Platelet Volume 6.9, Neutrophils (%) (Auto) , Lymphocytes (%) (Auto) , Monocytes (%) (Auto) , Eosinophils (%) (Auto) , Basophils (%) (Auto) , Differential Total Cells Counted 100, Neutrophils % (Manual) 88H, Lymphocytes % (Manual) 10L, Monocytes % (Manual) 2, Eosinophils % (Manual) 0, Basophils % (Manual) 0, Band Neutrophils 0, Platelet Estimate IncreasedH, Platelet Morphology Normal, Red Blood Cell Morphology Normal, Sodium Level 139, Potassium Level 4.5, Chloride Level 106, Carbon Dioxide Level 26, Anion Gap 7, Blood Urea Nitrogen 17, Creatinine 0.8, Estimat Glomerular Filtration Rate > 60, Glucose Level 112H, Calcium Level 8.3L, Total Bilirubin 0.6, Aspartate Amino Transf (AST/SGOT) 18, Alanine Aminotransferase (ALT/SGPT) 65, Alkaline Phosphatase 79, Total Protein 6.9, Albumin 2.8L, Globulin 4.1, Albumin/Globulin Ratio 0.7L Current Medications Medications (Trade) Dose Ordered Sig/Sami Route PRN Reason Start Time Stop Time Status Last Admin Dose Admin Acetaminophen (Tylenol) 650 mg Q6H PRN ORAL Mild Pain (Pain Scale 1-3) 08/31/20 12:15 09/30/20 12:14 Acetaminophen (Tylenol) 650 mg Q6H PRN ORAL For temp >100.4 08/31/20 12:30 09/30/20 12:29 Albuterol Sulfate (Proventil MDI) 2 puff TID INH 08/31/20 13:46 11/29/20 13:45 09/12/20 08:51 Enoxaparin Sodium (Lovenox) 40 mg DAILY SUBQ 09/01/20 09:00 11/30/20 08:59 09/12/20 08:52 Methylprednisolone Sodium Succinate (Solu-MEDROL) 20 mg EVERY 8 HOURS IVP 09/09/20 14:00 12/08/20 13:59 09/12/20 04:55 Assessment/Plan Assessment/Plan 1. COVID-19 pneumonia - COVID-19 PCR positive (08/31) - now off broad-spectrum Abx per ID - s/p remdesivir (09/05-09/08) - CXR (09/07) Persistent patchy bilateral opacities 2. Elevated inflammatory markers. - on Lovenox for DVT ppx - repeat D-dimer trending down - repeat Venous duplex negative for DVT 3. Hypoxemia. - s/p decadron (09/01-09/09); now on solumedrol 20 Q8hr - Now on 6L Venturi mask saturating well; wean as tolerated Continue current management The care for this patient was discussed with my supervising physician Time spent for this case was approximately 31 minutes Titi Zhang Sep 12, 2020 10:44
[2020-09-12 12:00] VITALS: BP_SYST 102; BP_SYST 112; BP_DIAS 73; BP_DIAS 81
--- NOTE | 2020-09-12 14:14 | Infectious Diseases Prog Note ---
Assessment/Plan Assessment/Plan A 1. COVID19 pneumonia 2. respiratory failure improving 3. Pancreatitis P 1. continue Solumedrol 2. Finished remdesivir course 3. continue isolation Subjective ROS Limited/Unobtainable: No Constitutional: Reports: no symptoms Respiratory: Reports: productive cough; Denies: shortness of breath Gastrointestinal/Abdominal: Reports: no symptoms Genitourinary: Reports: no symptoms Allergies: Coded Allergies: No Known Allergies (Unverified , 08/31/20) Objective Last 24 Hour Vital Signs Date Time Temp Pulse Resp B/P (MAP) Pulse Ox O2 Delivery O2 Flow Rate FiO2 09/12/20 12:00 97.9 93 18 112/81 (91) 94 09/12/20 09:00 Venturi Mask 10.0 09/12/20 08:00 97.9 74 20 112/81 (91) 92 09/12/20 04:00 98.2 72 20 114/67 (83) 93 09/12/20 00:00 97.4 74 20 116/65 (82) 93 09/11/20 21:00 Venturi Mask 10.0 09/11/20 20:00 97.7 79 20 118/69 (85) 93 09/11/20 16:00 97.5 98 20 128/79 (95) 94 Height (Feet): 5 Height (Inches): 5.00 Weight (Pounds): 176 HEENT: mucous membranes moist Respiratory/Chest: no accessory muscle use, other - oxygen by nasal cannula Cardiovascular: normal rate Abdomen: soft, non tender Extremities: no edema Neurologic/Psychiatric: alert, responsive Laboratory Tests Test 09/12/20 05:50 White Blood Count 9.5 K/UL (4.8-10.8) Red Blood Count 5.30 M/UL (4.70-6.10) Hemoglobin 12.7 G/DL (14.2-18.0) L Hematocrit 41.7 % (42.0-52.0) L Mean Corpuscular Volume 79 FL (80-99) L Mean Corpuscular Hemoglobin 23.9 PG (27.0-31.0) L Mean Corpuscular Hemoglobin Concent 30.4 G/DL (32.0-36.0) L Red Cell Distribution Width 19.3 % (11.6-14.8) H Platelet Count 469 K/UL (150-450) H Mean Platelet Volume 6.9 FL (6.5-10.1) Neutrophils (%) (Auto) % (45.0-75.0) Lymphocytes (%) (Auto) % (20.0-45.0) Monocytes (%) (Auto) % (1.0-10.0) Eosinophils (%) (Auto) % (0.0-3.0) Basophils (%) (Auto) % (0.0-2.0) Differential Total Cells Counted 100 Neutrophils % (Manual) 88 % (45-75) H Lymphocytes % (Manual) 10 % (20-45) L Monocytes % (Manual) 2 % (1-10) Eosinophils % (Manual) 0 % (0-3) Basophils % (Manual) 0 % (0-2) Band Neutrophils 0 % (0-8) Platelet Estimate Increased H Platelet Morphology Normal Red Blood Cell Morphology Normal Sodium Level 139 MMOL/L (136-145) Potassium Level 4.5 MMOL/L (3.5-5.1) Chloride Level 106 MMOL/L (98-107) Carbon Dioxide Level 26 MMOL/L (21-32) Anion Gap 7 mmol/L (5-15) Blood Urea Nitrogen 17 mg/dL (7-18) Creatinine 0.8 MG/DL (0.55-1.30) Estimat Glomerular Filtration Rate > 60 mL/min (>60) Glucose Level 112 MG/DL (74-106) H Calcium Level 8.3 MG/DL (8.5-10.1) L Total Bilirubin 0.6 MG/DL (0.2-1.0) Aspartate Amino Transf (AST/SGOT) 18 U/L (15-37) Alanine Aminotransferase (ALT/SGPT) 65 U/L (12-78) Alkaline Phosphatase 79 U/L (46-116) Total Protein 6.9 G/DL (6.4-8.2) Albumin 2.8 G/DL (3.4-5.0) L Globulin 4.1 g/dL Albumin/Globulin Ratio 0.7 (1.0-2.7) L Current Medications Medications (Trade) Dose Ordered Sig/Sami Route PRN Reason Start Time Stop Time Status Last Admin Dose Admin Acetaminophen (Tylenol) 650 mg Q6H PRN ORAL Mild Pain (Pain Scale 1-3) 08/31/20 12:15 09/30/20 12:14 Acetaminophen (Tylenol) 650 mg Q6H PRN ORAL For temp >100.4 08/31/20 12:30 09/30/20 12:29 Albuterol Sulfate (Proventil MDI) 2 puff TID INH 08/31/20 13:46 11/29/20 13:45 09/12/20 08:51 Enoxaparin Sodium (Lovenox) 40 mg DAILY SUBQ 09/01/20 09:00 11/30/20 08:59 09/12/20 08:52 Methylprednisolone Sodium Succinate (Solu-MEDROL) 20 mg EVERY 8 HOURS IVP 09/09/20 14:00 12/08/20 13:59 09/12/20 04:55 Ady Kong MD Sep 12, 2020 14:14
--- NOTE | 2020-09-12 14:47 | NUR ---
CASE MANAGEMENT:REVIEW 09/12/20 SI: COVID PNEUMONIA. 97.9 93 18 112/81 94% ON VENTURI MASK 10L/50% FIO2 IS: IV SOLUMEDROL 20MG Q8HRS LOVENOX SQ QD ALBUTEROL INH TID : MED/SURG STATUS DCP: FROM HOME PLAN: COMPLETED REMDESIVIR WEAN OXYGEN IF ABLE
[2020-09-12 16:00] VITALS: BP 112/81
--- NOTE | 2020-09-12 18:30 | NUR ---
NURSE NOTES: patient resting,respirations unlabored.Patient 02 sat 94-95 % on 4 liter N/C,patient 02 lower to 3 Liter N/c.Will endorse to oncoming Nurse to monitor .DR richardson was here earlier and updated on patient progress.
--- NOTE | 2020-09-12 18:40 | General Progress Note ---
Subjective Allergies: Coded Allergies: No Known Allergies (Unverified , 08/31/20) Subjective doing ok on 10 lires fio2 oriented Objective Last 24 Hour Vital Signs Date Time Temp Pulse Resp B/P (MAP) Pulse Ox O2 Delivery O2 Flow Rate FiO2 09/12/20 12:00 97.9 93 18 112/81 (91) 94 09/12/20 09:00 Venturi Mask 10.0 09/12/20 08:00 97.9 74 20 112/81 (91) 92 09/12/20 04:00 98.2 72 20 114/67 (83) 93 09/12/20 00:00 97.4 74 20 116/65 (82) 93 09/11/20 21:00 Venturi Mask 10.0 09/11/20 20:00 97.7 79 20 118/69 (85) 93 Intake and Output 09/11/20 09/12/20 19:00 07:00 Intake Total 900 ml 700 ml Balance 900 ml 700 ml Intake Oral 900 ml 700 ml # Voids 4 2 Laboratory Tests 09/12/20 05:50: White Blood Count 9.5, Red Blood Count 5.30, Hemoglobin 12.7L, Hematocrit 41.7L, Mean Corpuscular Volume 79L, Mean Corpuscular Hemoglobin 23.9L, Mean Corpuscular Hemoglobin Concent 30.4L, Red Cell Distribution Width 19.3H, Platelet Count 469H , Mean Platelet Volume 6.9, Neutrophils (%) (Auto) , Lymphocytes (%) (Auto) , Monocytes (%) (Auto) , Eosinophils (%) (Auto) , Basophils (%) (Auto) , Differential Total Cells Counted 100, Neutrophils % (Manual) 88H, Lymphocytes % (Manual) 10L, Monocytes % (Manual) 2, Eosinophils % (Manual) 0, Basophils % (Manual) 0, Band Neutrophils 0, Platelet Estimate IncreasedH, Platelet Morphology Normal, Red Blood Cell Morphology Normal, Sodium Level 139, Potassium Level 4.5, Chloride Level 106, Carbon Dioxide Level 26, Anion Gap 7, Blood Urea Nitrogen 17, Creatinine 0.8, Estimat Glomerular Filtration Rate > 60, Glucose Level 112H, Calcium Level 8.3L, Total Bilirubin 0.6, Aspartate Amino Transf (AST/SGOT) 18, Alanine Aminotransferase (ALT/SGPT) 65, Alkaline Phosphatase 79, Total Protein 6.9, Albumin 2.8L, Globulin 4.1, Albumin/Globulin Ratio 0.7L Height (Feet): 5 Height (Inches): 5.00 Weight (Pounds): 176 General Appearance: alert EENT: PERRL/EOMI Neck: supple Cardiovascular: regular rhythm Respiratory/Chest: crackles/rales Abdomen: non tender, soft Assessment/Plan Assessment/Plan: ac sob better covid pna dc iv abx iv decadrone novnex regolar diet pulmo on case cont fio2 check labs Brian Fragoso MD Sep 12, 2020 18:40
--- NOTE | 2020-09-12 19:50 | NUR ---
NURSE HAND-OFF: Gelacio RN Important Events on Shift:[monitor 02 status,titrating 02 as tolerated.] Patient Status: [full code] Diet: [Regular] Pending Orders: [] Pending Results/Labs:[] Pending MD notification:[] Latest Vital Signs: Temperature 97.8 , Pulse 91 , B/P 119 /80 , Respiratory Rate 20 , O2 SAT 94 , Bi-pap, O2 Flow Rate 10.0 . Vital Sign Comment: [] Latest Stone Fall Score: 20 Fall Risk: Low Risk Safety Measures: Call light Within Reach, Bed Alarm Zone 2, Side Rails Side Rails x2, Bed position Low and Locked. Fall Precautions: Yellow Socks Yellow Gown Patient Fall Education Report given to [].
--- NOTE | 2020-09-12 19:53 | NUR ---
NURSE NOTES: The patient is alert and oriented x4, [place] speaking and doesn't seem to be in any active distress.He is presently on 3 liter of oxygen via NC with SPo2 95% NC.He has a left FA in line that is patent and asymptomatic.The bed in lowest position and call light within easy reach. will continue to monitor
[2020-09-12 20:00] VITALS: BP 119/80
[2020-09-13] VITALS: BP 122/74
[2020-09-13 04:00] VITALS: BP 118/85
[2020-09-13] MEDS: Solu-MEDROL 40mg Inj IVP SCH ×3 (06:31→21:16)
--- NOTE | 2020-09-13 06:51 | NUR ---
NURSE NOTES: The patient remained calm and cooperative with his care and doesn't appear to be in any active distress at this time.He remained on 3 liters of oxygen via NC with Spo2 @ 95%. Will continue to monitor as indicated.
[2020-09-13 07:11] LABS: HEMATOCRIT 42.5 % (42.0-52.0); MEAN CORPUSCULAR VOLUME 78 FL (80-99); PLATELET COUNT 455 K/UL (150-450); RED BLOOD COUNT 5.42 M/UL (4.70-6.10); RED CELL DISTRIBUTION WIDTH 19.1 % (11.6-14.8); WHITE BLOOD COUNT 8.9 K/UL (4.8-10.8)
--- NOTE | 2020-09-13 07:21 | NUR ---
NURSE HAND-OFF: Important Events on Shift:Alert and cooperative Patient Status: Diet: Pending Orders: Pending Results/Labs: Pending MD notification: Latest Vital Signs: Temperature 97.5 , Pulse 75 , B/P 118 /85 , Respiratory Rate 17 , O2 SAT 95 , Bi-pap, O2 Flow Rate 10.0 . Vital Sign Comment: Latest Stone Fall Score: 20 Fall Risk: Low Risk Safety Measures: Call light Within Reach, Bed Alarm Zone 2, Side Rails Side Rails x2, Bed position Low and Locked. Fall Precautions: Yellow Socks Yellow Gown Patient Fall Education Report given to .:
[2020-09-13 07:33] LABS: ANION GAP 9 mmol/L (5-15); BLOOD UREA NITROGEN 19 mg/dL (7-18); CALCIUM 8.4 MG/DL (8.5-10.1); CARBON DIOXIDE 26 MMOL/L (21-32); CHLORIDE 104 MMOL/L (98-107); CREATININE 0.7 MG/DL (0.55-1.30); POTASSIUM 4.3 MMOL/L (3.5-5.1); SODIUM 139 MMOL/L (136-145)
--- NOTE | 2020-09-13 07:45 | NUR ---
NURSE NOTES: RECEIVED PATIENT LYING IN BED, AWAKE, ALERT/ORIENTED X4, ABLE TO MAKE NEEDS KNOWN. IVORIAN SPEAKING AND ABLE TO UNDERSTAND AND COMMUNICATE IN [place]. NO SIGNS AND SYMPTOMS OF ACUTE CARDIO-RESPIRATORY DISTRESS/SHORTNESS OF BREATH. ON O2 3L VIA O2 SATS 91-92%. HOB ELEVATED FOR ADEQUATE VENTILATION. DENIES CHEST PAIN. PIV INTACT TO LEFT FA/GAUGE 20, TOLERATING IV FLUIDS WELL, NO SWELLING/REDNESS NOTED. ABDOMEN SOFT/ DISTENDED/NON TENDER, DENIES PAIN. ON REGULAR DIET, TOLERATING WELL, NO N/V/D. COVID ISOLATION. ENCOURAGED PATIENT TO UTILIZE CALL LIGHT FOR ASSISTANCE, VERBALIZED UNDERSTANDING. SIDERAILS UP X2/BED IN LOWEST POSITION FOR SAFETY, FREQUENT ROUNDING FOR SAFETY/NEEDS, CONTINUE WITH CURRENT PLAN OF CARE.
[2020-09-13 08:00] VITALS: BP 119/77
[2020-09-13] MEDS: Enoxaparin 40mg Inj SUBQ SCH (08:41)
--- NOTE | 2020-09-13 09:21 | Hematology/Onc Progress Note ---
Assessment/Plan Assessment/Plan elevated ddimer due to covid19++ anemia likely chronic dsiease thrombocytosis leukocytosis ac sob covid pna iv abx iv decadrone novnex regolar diet pulmo on case cont fio2 labs reviewed Subjective HEENT: Denies: no symptoms, eye pain, blurred vision, tearing, double vision, ear pain, ear discharge, nose pain, nose congestion, throat pain, throat swelling, mouth pain, mouth swelling, other Cardiovascular: Denies: no symptoms, chest pain, edema, irregular heart rate, lightheadedness, palpitations, syncope, other Respiratory: Denies: no symptoms, cough, shortness of breath, SOB with excertion, SOB at rest, sputum, wheezing, other Gastrointestinal/Abdominal: Denies: no symptoms, abdomen distended, abdominal pain, black stools, tarry stools, blood in stool, constipated, diarrhea, difficulty swallowing, nausea, poor appetite, poor fluid intake, rectal bleeding, vomiting, other Genitourinary: Denies: no symptoms, burning, discharge, frequency, flank pain, hematuria, incontinence, pain, urgency, other Neurologic/Psychiatric: Denies: no symptoms, anxiety, depressed, emotional problems, headache, numbness, paresthesia, pre-existing deficit, seizure, tingling, tremors, weakness, other Endocrine: Denies: no symptoms, excessive sweating, flushing, intolerance to cold, intolerance to heat, increased hunger, increased thirst, increased urine, unexplained weight gain, unexplained weight loss, other Allergies: Coded Allergies: No Known Allergies (Unverified , 08/31/20) Subjective 09/08 labs reviewed, meds noted, labs reviewed, no fc 09/09 alert awake, is on 15l, no major changes, no bleeding, dw rn 09/10 is awake, alert, no bleeding, meds noted, labs reviewed 09/11 labs are pending, no bleeding, meds noted, plt pending 09/12 comfortable, 6l venturi, no bleeding, labs reviewed 09/13 on bipap, no new changes, labs reviewed, cbc is noted Objective Objective Current Medications Medications (Trade) Dose Ordered Sig/Sami Route PRN Reason Start Time Stop Time Status Last Admin Dose Admin Acetaminophen (Tylenol) 650 mg Q6H PRN ORAL Mild Pain (Pain Scale 1-3) 08/31/20 12:15 09/30/20 12:14 Acetaminophen (Tylenol) 650 mg Q6H PRN ORAL For temp >100.4 08/31/20 12:30 09/30/20 12:29 Albuterol Sulfate (Proventil MDI) 2 puff TID INH 08/31/20 13:46 11/29/20 13:45 09/12/20 18:45 Enoxaparin Sodium (Lovenox) 40 mg DAILY SUBQ 09/01/20 09:00 11/30/20 08:59 09/13/20 08:41 Methylprednisolone Sodium Succinate (Solu-MEDROL) 20 mg EVERY 8 HOURS IVP 09/09/20 14:00 12/08/20 13:59 09/13/20 06:31 Last 24 Hour Vital Signs Date Time Temp Pulse Resp B/P (MAP) Pulse Ox O2 Delivery O2 Flow Rate FiO2 09/13/20 08:00 97.7 82 18 119/77 (91) 92 09/13/20 04:00 97.5 75 17 118/85 (96) 95 09/13/20 00:00 97.7 78 19 122/74 (90) 95 09/12/20 21:00 Venturi Mask 10.0 09/12/20 20:00 97.8 91 20 119/80 (93) 94 09/12/20 16:00 97.9 93 18 112/81 (91) 95 09/12/20 12:00 97.9 93 18 102/73 (83) 94 09/12/20 09:00 Venturi Mask 10.0 09/12/20 08:00 97.9 74 20 112/81 (91) 92 09/12/20 04:00 98.2 72 20 114/67 (83) 93 09/12/20 00:00 97.4 74 20 116/65 (82) 93 09/11/20 21:00 Venturi Mask 10.0 09/11/20 20:00 97.7 79 20 118/69 (85) 93 09/11/20 16:00 97.5 98 20 128/79 (95) 94 09/11/20 12:00 97.5 95 20 133/66 (88) 95 Intake and Output 09/12/20 09/13/20 19:00 07:00 Intake Total 1040 ml 650 ml Balance 1040 ml 650 ml Intake Oral 1040 ml 650 ml # Voids 3 Labs Test 09/12/20 05:50 09/13/20 06:10 White Blood Count 9.5 K/UL (4.8-10.8) 8.9 K/UL (4.8-10.8) Red Blood Count 5.30 M/UL (4.70-6.10) 5.42 M/UL (4.70-6.10) Hemoglobin 12.7 G/DL (14.2-18.0) 13.0 G/DL (14.2-18.0) Hematocrit 41.7 % (42.0-52.0) 42.5 % (42.0-52.0) Mean Corpuscular Volume 79 FL (80-99) 78 FL (80-99) Mean Corpuscular Hemoglobin 23.9 PG (27.0-31.0) 24.0 PG (27.0-31.0) Mean Corpuscular Hemoglobin Concent 30.4 G/DL (32.0-36.0) 30.6 G/DL (32.0-36.0) Red Cell Distribution Width 19.3 % (11.6-14.8) 19.1 % (11.6-14.8) Platelet Count 469 K/UL (150-450) 455 K/UL (150-450) Mean Platelet Volume 6.9 FL (6.5-10.1) 6.9 FL (6.5-10.1) Neutrophils (%) (Auto) % (45.0-75.0) % (45.0-75.0) Lymphocytes (%) (Auto) % (20.0-45.0) % (20.0-45.0) Monocytes (%) (Auto) % (1.0-10.0) % (1.0-10.0) Eosinophils (%) (Auto) % (0.0-3.0) % (0.0-3.0) Basophils (%) (Auto) % (0.0-2.0) % (0.0-2.0) Differential Total Cells Counted 100 Neutrophils % (Manual) 88 % (45-75) Lymphocytes % (Manual) 10 % (20-45) Monocytes % (Manual) 2 % (1-10) Eosinophils % (Manual) 0 % (0-3) Basophils % (Manual) 0 % (0-2) Band Neutrophils 0 % (0-8) Platelet Estimate Increased Platelet Morphology Normal Red Blood Cell Morphology Normal Sodium Level 139 MMOL/L (136-145) 139 MMOL/L (136-145) Potassium Level 4.5 MMOL/L (3.5-5.1) 4.3 MMOL/L (3.5-5.1) Chloride Level 106 MMOL/L (98-107) 104 MMOL/L (98-107) Carbon Dioxide Level 26 MMOL/L (21-32) 26 MMOL/L (21-32) Anion Gap 7 mmol/L (5-15) 9 mmol/L (5-15) Blood Urea Nitrogen 17 mg/dL (7-18) 19 mg/dL (7-18) Creatinine 0.8 MG/DL (0.55-1.30) 0.7 MG/DL (0.55-1.30) Estimat Glomerular Filtration Rate > 60 mL/min (>60) > 60 mL/min (>60) Glucose Level 112 MG/DL (74-106) 111 MG/DL (74-106) Calcium Level 8.3 MG/DL (8.5-10.1) 8.4 MG/DL (8.5-10.1) Total Bilirubin 0.6 MG/DL (0.2-1.0) Aspartate Amino Transf (AST/SGOT) 18 U/L (15-37) Alanine Aminotransferase (ALT/SGPT) 65 U/L (12-78) Alkaline Phosphatase 79 U/L (46-116) Total Protein 6.9 G/DL (6.4-8.2) Albumin 2.8 G/DL (3.4-5.0) Globulin 4.1 g/dL Albumin/Globulin Ratio 0.7 (1.0-2.7) Height (Feet): 5 Height (Inches): 5.00 Weight (Pounds): 176 Objective General Appearance: alert EENT: PERRL/EOMI Neck: supple Cardiovascular: normal rate Respiratory/Chest: lungs clear, normal breath sounds, no respiratory distress, rhonchi - bilaterally Abdomen: non tender, soft César Arnold MD Sep 13, 2020 09:21
[2020-09-13] MEDS: Albuterol 90mcg Inhaler 8gm INH SCH ×3 (09:30→17:22)
--- NOTE | 2020-09-13 09:36 | Pulmonology Progress Note ---
Subjective ROS Limited/Unobtainable: No Interval Events: None new Constitutional: Reports: no symptoms HEENT: Repors: no symptoms Respiratory: Reports: no symptoms Cardiovascular: Reports: no symptoms Gastrointestinal/Abdominal: Reports: no symptoms Musculoskeletal: Denies: pain Allergies: Coded Allergies: No Known Allergies (Unverified , 08/31/20) Objective Last 24 Hour Vital Signs Date Time Temp Pulse Resp B/P (MAP) Pulse Ox O2 Delivery O2 Flow Rate FiO2 09/13/20 08:00 97.7 82 18 119/77 (91) 92 09/13/20 04:00 97.5 75 17 118/85 (96) 95 09/13/20 00:00 97.7 78 19 122/74 (90) 95 09/12/20 21:00 Venturi Mask 10.0 09/12/20 20:00 97.8 91 20 119/80 (93) 94 09/12/20 16:00 97.9 93 18 112/81 (91) 95 09/12/20 12:00 97.9 93 18 102/73 (83) 94 Intake and Output 09/12/20 09/13/20 19:00 07:00 Intake Total 1040 ml 650 ml Balance 1040 ml 650 ml Intake Oral 1040 ml 650 ml # Voids 3 General Appearance: no acute distress HEENT: normocephalic Respiratory: decreased breath sounds Cardiovascular: normal peripheral pulses, normal rate Abdomen: normal bowel sounds Laboratory Tests 09/13/20 06:10: White Blood Count 8.9, Red Blood Count 5.42, Hemoglobin 13.0L, Hematocrit 42.5, Mean Corpuscular Volume 78L, Mean Corpuscular Hemoglobin 24.0L, Mean Corpuscular Hemoglobin Concent 30.6L, Red Cell Distribution Width 19.1H, Platelet Count 455H , Mean Platelet Volume 6.9, Neutrophils (%) (Auto) , Lymphocytes (%) (Auto) , Monocytes (%) (Auto) , Eosinophils (%) (Auto) , Basophils (%) (Auto) , Neutrophils % (Manual) [Pending], Lymphocytes % (Manual) [Pending], Platelet Estimate [Pending], Platelet Morphology [Pending], Sodium Level 139, Potassium Level 4.3, Chloride Level 104, Carbon Dioxide Level 26, Anion Gap 9, Blood Urea Nitrogen 19H, Creatinine 0.7, Estimat Glomerular Filtration Rate > 60, Glucose Level 111H, Calcium Level 8.4L Current Medications Medications (Trade) Dose Ordered Sig/Sami Route PRN Reason Start Time Stop Time Status Last Admin Dose Admin Acetaminophen (Tylenol) 650 mg Q6H PRN ORAL Mild Pain (Pain Scale 1-3) 08/31/20 12:15 09/30/20 12:14 Acetaminophen (Tylenol) 650 mg Q6H PRN ORAL For temp >100.4 08/31/20 12:30 09/30/20 12:29 Albuterol Sulfate (Proventil MDI) 2 puff TID INH 08/31/20 13:46 11/29/20 13:45 09/12/20 18:45 Enoxaparin Sodium (Lovenox) 40 mg DAILY SUBQ 09/01/20 09:00 11/30/20 08:59 09/13/20 08:41 Methylprednisolone Sodium Succinate (Solu-MEDROL) 20 mg EVERY 8 HOURS IVP 09/09/20 14:00 12/08/20 13:59 09/13/20 06:31 Assessment/Plan Assessment/Plan 1. COVID-19 pneumonia - COVID-19 PCR positive (08/31) - now off broad-spectrum Abx per ID - s/p remdesivir (09/05-09/08) - CXR (09/07) Persistent patchy bilateral opacities 2. Elevated inflammatory markers. - on Lovenox for DVT ppx - repeat D-dimer trending down - repeat Venous duplex negative for DVT 3. Hypoxemia. - s/p decadron (09/01-09/09); now on solumedrol 20 Q8hr - Now on 3L NC; continue to wean as tolerated Continue current management The care for this patient was discussed with my supervising physician Time spent for this case was approximately 31 minutes Titi Zhang Sep 13, 2020 09:36
--- NOTE | 2020-09-13 10:19 | General Progress Note ---
Subjective Allergies: Coded Allergies: No Known Allergies (Unverified , 08/31/20) Subjective doing ok on 10 lires fio2 oriented Objective Last 24 Hour Vital Signs Date Time Temp Pulse Resp B/P (MAP) Pulse Ox O2 Delivery O2 Flow Rate FiO2 09/13/20 08:00 97.7 82 18 119/77 (91) 92 09/13/20 04:00 97.5 75 17 118/85 (96) 95 09/13/20 00:00 97.7 78 19 122/74 (90) 95 09/12/20 21:00 Venturi Mask 10.0 09/12/20 20:00 97.8 91 20 119/80 (93) 94 09/12/20 16:00 97.9 93 18 112/81 (91) 95 09/12/20 12:00 97.9 93 18 102/73 (83) 94 Intake and Output 09/12/20 09/13/20 19:00 07:00 Intake Total 1040 ml 650 ml Balance 1040 ml 650 ml Intake Oral 1040 ml 650 ml # Voids 3 Laboratory Tests 09/13/20 06:10: White Blood Count 8.9, Red Blood Count 5.42, Hemoglobin 13.0L, Hematocrit 42.5, Mean Corpuscular Volume 78L, Mean Corpuscular Hemoglobin 24.0L, Mean Corpuscular Hemoglobin Concent 30.6L, Red Cell Distribution Width 19.1H, Platelet Count 455H , Mean Platelet Volume 6.9, Neutrophils (%) (Auto) , Lymphocytes (%) (Auto) , Monocytes (%) (Auto) , Eosinophils (%) (Auto) , Basophils (%) (Auto) , Neutrophils % (Manual) [Pending], Lymphocytes % (Manual) [Pending], Platelet Estimate [Pending], Platelet Morphology [Pending], Sodium Level 139, Potassium Level 4.3, Chloride Level 104, Carbon Dioxide Level 26, Anion Gap 9, Blood Urea Nitrogen 19H, Creatinine 0.7, Estimat Glomerular Filtration Rate > 60, Glucose Level 111H, Calcium Level 8.4L Height (Feet): 5 Height (Inches): 5.00 Weight (Pounds): 176 General Appearance: alert Neck: supple Cardiovascular: regular rhythm Respiratory/Chest: crackles/rales Abdomen: non tender, soft Assessment/Plan Assessment/Plan: ac sob better covid pna dc iv abx iv decadrone novnex regolar diet pulmo on case cont fio2 check labs Brian Fragoso MD Sep 13, 2020 10:19
--- NOTE | 2020-09-13 11:07 | Infectious Diseases Prog Note ---
Assessment/Plan Assessment/Plan antibiotics : none A 1. covid 19 pneumonia on 3 liters O2 with 92 % saturation s/p remdesivir 2. respiratory failure resolved P 1. continue solumedrol 2. will follow up cultures 3. continue isolation Subjective Constitutional: Denies: fever, chills Respiratory: Reports: shortness of breath, dry cough Gastrointestinal/Abdominal: Denies: nausea, vomiting, diarrhea Musculoskeletal: Denies: pain Allergies: Coded Allergies: No Known Allergies (Unverified , 08/31/20) Objective Last 24 Hour Vital Signs Date Time Temp Pulse Resp B/P (MAP) Pulse Ox O2 Delivery O2 Flow Rate FiO2 09/13/20 09:00 Nasal Cannula 3.0 09/13/20 08:00 97.7 82 18 119/77 (91) 92 09/13/20 04:00 97.5 75 17 118/85 (96) 95 09/13/20 00:00 97.7 78 19 122/74 (90) 95 09/12/20 21:00 Venturi Mask 10.0 09/12/20 20:00 97.8 91 20 119/80 (93) 94 09/12/20 16:00 97.9 93 18 112/81 (91) 95 09/12/20 12:00 97.9 93 18 102/73 (83) 94 Height (Feet): 5 Height (Inches): 5.00 Weight (Pounds): 176 Laboratory Tests Test 09/13/20 06:10 White Blood Count 8.9 K/UL (4.8-10.8) Red Blood Count 5.42 M/UL (4.70-6.10) Hemoglobin 13.0 G/DL (14.2-18.0) L Hematocrit 42.5 % (42.0-52.0) Mean Corpuscular Volume 78 FL (80-99) L Mean Corpuscular Hemoglobin 24.0 PG (27.0-31.0) L Mean Corpuscular Hemoglobin Concent 30.6 G/DL (32.0-36.0) L Red Cell Distribution Width 19.1 % (11.6-14.8) H Platelet Count 455 K/UL (150-450) H Mean Platelet Volume 6.9 FL (6.5-10.1) Neutrophils (%) (Auto) % (45.0-75.0) Lymphocytes (%) (Auto) % (20.0-45.0) Monocytes (%) (Auto) % (1.0-10.0) Eosinophils (%) (Auto) % (0.0-3.0) Basophils (%) (Auto) % (0.0-2.0) Differential Total Cells Counted 100 Neutrophils % (Manual) 90 % (45-75) H Lymphocytes % (Manual) 7 % (20-45) L Monocytes % (Manual) 3 % (1-10) Eosinophils % (Manual) 0 % (0-3) Basophils % (Manual) 0 % (0-2) Band Neutrophils 0 % (0-8) Platelet Estimate Adequate Platelet Morphology Normal Hypochromasia 1+ Anisocytosis 2+ Sodium Level 139 MMOL/L (136-145) Potassium Level 4.3 MMOL/L (3.5-5.1) Chloride Level 104 MMOL/L (98-107) Carbon Dioxide Level 26 MMOL/L (21-32) Anion Gap 9 mmol/L (5-15) Blood Urea Nitrogen 19 mg/dL (7-18) H Creatinine 0.7 MG/DL (0.55-1.30) Estimat Glomerular Filtration Rate > 60 mL/min (>60) Glucose Level 111 MG/DL (74-106) H Calcium Level 8.4 MG/DL (8.5-10.1) L Current Medications Medications (Trade) Dose Ordered Sig/Sami Route PRN Reason Start Time Stop Time Status Last Admin Dose Admin Acetaminophen (Tylenol) 650 mg Q6H PRN ORAL Mild Pain (Pain Scale 1-3) 08/31/20 12:15 09/30/20 12:14 Acetaminophen (Tylenol) 650 mg Q6H PRN ORAL For temp >100.4 08/31/20 12:30 09/30/20 12:29 Albuterol Sulfate (Proventil MDI) 2 puff TID INH 08/31/20 13:46 11/29/20 13:45 09/13/20 09:30 Enoxaparin Sodium (Lovenox) 40 mg DAILY SUBQ 09/01/20 09:00 11/30/20 08:59 09/13/20 08:41 Methylprednisolone Sodium Succinate (Solu-MEDROL) 20 mg EVERY 8 HOURS IVP 09/09/20 14:00 12/08/20 13:59 09/13/20 06:31 Demetra Dickerson MD Sep 13, 2020 11:07
[2020-09-13 12:09] VITALS: BP 118/68
[2020-09-13 16:00] VITALS: BP 123/82
--- NOTE | 2020-09-13 19:16 | NUR ---
NURSE HAND-OFF: Important Events on Shift:[not tolerating to wean O2 to 2L via NC yet. patient appeared to desat to 88%. ] Patient Status: [FC] Diet: [reg] Pending Orders: [labs] Pending Results/Labs:[daily] Pending MD notification:[] Latest Vital Signs: Temperature 98.1 , Pulse 100 , B/P 123 /82 , Respiratory Rate 20 , O2 SAT 93 , Bi-pap, O2 Flow Rate 3.0 . Vital Sign Comment: [] Latest Stone Fall Score: 20 Fall Risk: Low Risk Safety Measures: Call light Within Reach, Bed Alarm Zone 1, Side Rails Side Rails x2, Bed position Low and Locked. Fall Precautions: Yellow Socks Yellow Gown Patient Fall Education Report given to [yvon].
[2020-09-13 19:26] VITALS: BP 123/79
--- NOTE | 2020-09-13 19:45 | NUR ---
NURSE NOTES: Received report from Nga DONOVAN. Patient is awake, alert and oriented x4. On NC 3L, breathing is even and unlabored with O2 saturation of 93%. No complains of pain or distress noted. Will try to wean off oxygen. IV left FA intact and patent with no bleeding noted. Bed low and locked. Call light within reach.
[2020-09-14] VITALS: BP 115/77
[2020-09-14 04:00] VITALS: BP 121/85
[2020-09-14] MEDS: Solu-MEDROL 40mg Inj IVP SCH ×2 (05:30→13:46)
[2020-09-14 05:55] LABS: HEMOGLOBIN 12.8 G/DL (14.2-18.0); MEAN CORPUSCULAR VOLUME 79 FL (80-99); PLATELET COUNT 390 K/UL (150-450); RED BLOOD COUNT 5.34 M/UL (4.70-6.10); RED CELL DISTRIBUTION WIDTH 19.4 % (11.6-14.8); WHITE BLOOD COUNT 7.5 K/UL (4.8-10.8)
[2020-09-14 06:11] LABS: ANION GAP 8 mmol/L (5-15); BLOOD UREA NITROGEN 19 mg/dL (7-18); CALCIUM 8.4 MG/DL (8.5-10.1); CARBON DIOXIDE 24 MMOL/L (21-32); CHLORIDE 106 MMOL/L (98-107); CREATININE 0.7 MG/DL (0.55-1.30); POTASSIUM 4.4 MMOL/L (3.5-5.1); SODIUM 138 MMOL/L (136-145)
--- NOTE | 2020-09-14 07:12 | NUR ---
NURSE HAND-OFF: Important Events on Shift: Wean off O2 from 3L to 1L Patient Status: Stable Diet: Regular Pending Orders: [] Pending Results/Labs:[] Pending MD notification:[] Latest Vital Signs: Temperature 97.7 , Pulse 78 , B/P 121 /85 , Respiratory Rate 18 , O2 SAT 93 , Bi-pap, O2 Flow Rate 3.0 . Vital Sign Comment: VS stable Latest Stone Fall Score: 20 Fall Risk: Low Risk Safety Measures: Call light Within Reach, Bed Alarm Zone 2, Side Rails Side Rails x2, Bed position Low and Locked. Fall Precautions: Yellow Socks Yellow Gown Patient Fall Education Report given to Julieth DONOVAN.
--- NOTE | 2020-09-14 07:31 | NUR ---
NURSE NOTES: Report received from Antoni and patient in bed. Patient is AAOX4, on 1L of NC saturating at 93%. Breathing is even and unlabored, does not c/o pain. Will try to wean off oxygen. IV on LFA intact and patent, asymptomatic Bed low and locked. Call light within reach.
[2020-09-14 08:00] VITALS: BP 118/65
[2020-09-14] MEDS: Enoxaparin 40mg Inj SUBQ SCH (09:15)
[2020-09-14] MEDS: Albuterol 90mcg Inhaler 8gm INH SCH ×3 (09:17→17:22)
--- NOTE | 2020-09-14 11:41 | Pulmonology Progress Note ---
Subjective ROS Limited/Unobtainable: No Interval Events: None new Constitutional: Denies: fever, chills HEENT: Repors: no symptoms Respiratory: Reports: no symptoms Cardiovascular: Reports: no symptoms Gastrointestinal/Abdominal: Denies: nausea, vomiting, diarrhea Musculoskeletal: Denies: pain Allergies: Coded Allergies: No Known Allergies (Unverified , 08/31/20) Objective Last 24 Hour Vital Signs Date Time Temp Pulse Resp B/P (MAP) Pulse Ox O2 Delivery O2 Flow Rate FiO2 09/14/20 09:00 Room Air 09/14/20 08:00 97.7 103 18 118/65 (82) 95 09/14/20 07:59 94 Room Air 21 09/14/20 04:00 97.7 78 18 121/85 (97) 93 09/14/20 00:00 97.5 64 18 115/77 (90) 95 09/13/20 21:00 Nasal Cannula 3.0 09/13/20 19:32 93 Nasal Cannula 3.0 32 09/13/20 19:26 98.1 103 18 123/79 (94) 93 09/13/20 16:00 98.1 100 20 123/82 (96) 93 09/13/20 12:09 98.1 88 20 118/68 (85) 93 Intake and Output 09/13/20 09/14/20 19:00 07:00 Intake Total 650 ml 400 ml Output Total 500 ml Balance 650 ml -100 ml Intake Oral 650 ml 400 ml Output Urine Total 500 ml # Voids 3 2 # Bowel Movements 3 General Appearance: no acute distress HEENT: normocephalic Respiratory: decreased breath sounds Cardiovascular: normal peripheral pulses, normal rate Abdomen: normal bowel sounds Laboratory Tests 09/14/20 04:25: White Blood Count 7.5, Red Blood Count 5.34, Hemoglobin 12.8L, Hematocrit 42.0, Mean Corpuscular Volume 79L, Mean Corpuscular Hemoglobin 23.9L, Mean Corpuscular Hemoglobin Concent 30.4L, Red Cell Distribution Width 19.4H, Platelet Count 390, Mean Platelet Volume 7.2, Neutrophils (%) (Auto) , Lymphocytes (%) (Auto) , Monocytes (%) (Auto) , Eosinophils (%) (Auto) , Basophils (%) (Auto) , Differential Total Cells Counted 100, Neutrophils % (Manual) 92H, Lymphocytes % (Manual) 6L, Monocytes % (Manual) 2, Eosinophils % (Manual) 0, Basophils % (Manual) 0, Band Neutrophils 0, Platelet Estimate Adequate, Platelet Morphology Normal, Hypochromasia 1+, Anisocytosis 2+, Ovalocytes Occasional 09/14/20 05:25: Sodium Level 138, Potassium Level 4.4, Chloride Level 106, Carbon Dioxide Level 24, Anion Gap 8, Blood Urea Nitrogen 19H, Creatinine 0.7, Estimat Glomerular Filtration Rate > 60, Glucose Level 130H, Calcium Level 8.4L Current Medications Medications (Trade) Dose Ordered Sig/Sami Route PRN Reason Start Time Stop Time Status Last Admin Dose Admin Acetaminophen (Tylenol) 650 mg Q6H PRN ORAL Mild Pain (Pain Scale 1-3) 08/31/20 12:15 09/30/20 12:14 Acetaminophen (Tylenol) 650 mg Q6H PRN ORAL For temp >100.4 08/31/20 12:30 09/30/20 12:29 Albuterol Sulfate (Proventil MDI) 2 puff TID INH 08/31/20 13:46 11/29/20 13:45 09/14/20 09:17 Enoxaparin Sodium (Lovenox) 40 mg DAILY SUBQ 09/01/20 09:00 11/30/20 08:59 09/14/20 09:15 Methylprednisolone Sodium Succinate (Solu-MEDROL) 20 mg EVERY 8 HOURS IVP 09/09/20 14:00 12/08/20 13:59 09/14/20 05:30 Assessment/Plan Assessment/Plan IMPRESSION: 1. COVID-19 pneumonia - COVID-19 PCR positive (08/31) - now off broad-spectrum Abx per ID - s/p remdesivir (09/05-09/08) - CXR (09/07) Persistent patchy bilateral opacities 2. Elevated inflammatory markers. - on Lovenox for DVT ppx - repeat D-dimer trending down 3. Hypoxemia. - s/p decadron (09/01-09/09); now on solumedrol 20 Q8hr - Now on room air Dc planning per PMD Flavia Guzman Omar Syed MD Sep 14, 2020 11:41
[2020-09-14 12:00] VITALS: BP 116/76
--- NOTE | 2020-09-14 14:34 | Infectious Diseases Prog Note ---
Assessment/Plan Assessment/Plan A 1. COVID19 pneumonia 2. respiratory failure improving 3. Pancreatitis P 1. continue Solumedrol tapering 2. Finished remdesivir course 3. continue isolation Subjective ROS Limited/Unobtainable: Yes Respiratory: Reports: dry cough; Denies: shortness of breath Gastrointestinal/Abdominal: Reports: no symptoms Genitourinary: Reports: no symptoms Allergies: Coded Allergies: No Known Allergies (Unverified , 08/31/20) Objective Last 24 Hour Vital Signs Date Time Temp Pulse Resp B/P (MAP) Pulse Ox O2 Delivery O2 Flow Rate FiO2 09/14/20 12:00 97.3 63 18 116/76 (89) 95 09/14/20 09:00 Room Air 09/14/20 08:00 97.7 103 18 118/65 (82) 95 09/14/20 07:59 94 Room Air 21 09/14/20 04:00 97.7 78 18 121/85 (97) 93 09/14/20 00:00 97.5 64 18 115/77 (90) 95 09/13/20 21:00 Nasal Cannula 3.0 09/13/20 19:32 93 Nasal Cannula 3.0 32 09/13/20 19:26 98.1 103 18 123/79 (94) 93 09/13/20 16:00 98.1 100 20 123/82 (96) 93 Height (Feet): 5 Height (Inches): 5.00 Weight (Pounds): 176 HEENT: mucous membranes moist Respiratory/Chest: lungs clear, other - on room air O2 Cardiovascular: normal rate Abdomen: soft, non tender Extremities: no edema Neurologic/Psychiatric: alert, responsive Laboratory Tests Test 09/14/20 04:25 09/14/20 05:25 White Blood Count 7.5 K/UL (4.8-10.8) Red Blood Count 5.34 M/UL (4.70-6.10) Hemoglobin 12.8 G/DL (14.2-18.0) L Hematocrit 42.0 % (42.0-52.0) Mean Corpuscular Volume 79 FL (80-99) L Mean Corpuscular Hemoglobin 23.9 PG (27.0-31.0) L Mean Corpuscular Hemoglobin Concent 30.4 G/DL (32.0-36.0) L Red Cell Distribution Width 19.4 % (11.6-14.8) H Platelet Count 390 K/UL (150-450) Mean Platelet Volume 7.2 FL (6.5-10.1) Neutrophils (%) (Auto) % (45.0-75.0) Lymphocytes (%) (Auto) % (20.0-45.0) Monocytes (%) (Auto) % (1.0-10.0) Eosinophils (%) (Auto) % (0.0-3.0) Basophils (%) (Auto) % (0.0-2.0) Differential Total Cells Counted 100 Neutrophils % (Manual) 92 % (45-75) H Lymphocytes % (Manual) 6 % (20-45) L Monocytes % (Manual) 2 % (1-10) Eosinophils % (Manual) 0 % (0-3) Basophils % (Manual) 0 % (0-2) Band Neutrophils 0 % (0-8) Platelet Estimate Adequate Platelet Morphology Normal Hypochromasia 1+ Anisocytosis 2+ Ovalocytes Occasional Sodium Level 138 MMOL/L (136-145) Potassium Level 4.4 MMOL/L (3.5-5.1) Chloride Level 106 MMOL/L (98-107) Carbon Dioxide Level 24 MMOL/L (21-32) Anion Gap 8 mmol/L (5-15) Blood Urea Nitrogen 19 mg/dL (7-18) H Creatinine 0.7 MG/DL (0.55-1.30) Estimat Glomerular Filtration Rate > 60 mL/min (>60) Glucose Level 130 MG/DL (74-106) H Calcium Level 8.4 MG/DL (8.5-10.1) L Current Medications Medications (Trade) Dose Ordered Sig/Sami Route PRN Reason Start Time Stop Time Status Last Admin Dose Admin Acetaminophen (Tylenol) 650 mg Q6H PRN ORAL Mild Pain (Pain Scale 1-3) 08/31/20 12:15 09/30/20 12:14 Acetaminophen (Tylenol) 650 mg Q6H PRN ORAL For temp >100.4 08/31/20 12:30 09/30/20 12:29 Albuterol Sulfate (Proventil MDI) 2 puff TID INH 08/31/20 13:46 11/29/20 13:45 09/14/20 13:46 Enoxaparin Sodium (Lovenox) 40 mg DAILY SUBQ 09/01/20 09:00 11/30/20 08:59 09/14/20 09:15 Methylprednisolone Sodium Succinate (Solu-MEDROL) 20 mg EVERY 8 HOURS IVP 09/09/20 14:00 12/08/20 13:59 09/14/20 13:46 Ady Kong MD Sep 14, 2020 14:34
--- NOTE | 2020-09-14 14:59 | NUR ---
NURSE NOTES: Seen and evaluated by and Ok to discharge patient today. Order noted and carried out.
[2020-09-14 16:00] VITALS: BP 118/72
[2020-09-14 17:19] VITALS: BP 118/72
[2020-09-14] MEDS ORDERED: PREDNISONE20 MG ORAL (17:55)
[2020-09-14] MEDS ORDERED: FAMOTIDINE20 MG ORAL (17:56)
[2020-09-14] MEDS ORDERED: ALBUTEROL SULF8.5 G1 INH (17:56)
--- NOTE | 2020-09-14 19:10 | NUR ---
NURSE NOTES: Patient is discharged at 1910. Patient's IV and ID are removed. Vitals stable and patient denies respiratory distress or pain. RN provided discharge patient packets and escorted the patient to Lobby where the patient's friend Terry was waiting. RN told the patient to order the prescribed medications tomorrow and visit or call the doctor within a week and that he does not have to be on isolation per doctor. Patient verbalized understanding when his friend interpreted for him.
--- NOTE | 2020-09-15 03:29 | Discharge Summary ---
DATE OF ADMISSION: 08/31/2020 DATE OF DISCHARGE: 09/14/2020 HOSPITAL COURSE: This is a young 45-year-old male who came to the emergency room for having acute COVID pneumonia. The patient was initially admitted to a stepdown unit with BiPAP, and he stated that after some days Venturi mask and he has clinically improved. The patient has been doing better since last 2 days, has been off oxygen, saturating 95%. The patient received IV antibiotics, IV steroids. Pulmonary and ID consult was obtained. The patient is clinically improving. . The patient can go home. Follow up as an outpatient. DISCHARGE DIAGNOSES: 1. COVID pneumonia. 2. Weakness is improving. DIET: He is on regular diet. ACTIVITY: As tolerated. DISCHARGE MEDICATIONS: The patient is going to continue prednisone 20 mg daily for a month, Pepcid 20 mg p.o. b.i.d., and albuterol inhaler as needed. The patient is recommended to follow up in the office. Juan Fragoso M.D. DR: JATINDER JOB#: [id number] CC:
== END 2020-09-14 19:10 | disposition home or self-care (01) | DRG 137 ==
LOC: EDBD 08:00 → EDSEX 08:16 → EMR 08:16 → 2W 08:48 → EDBEDREQSVC 08:56 → EDBEDREQ 10:40 → 2E 09-02 14:06 → 4E 09-03 23:38
PROC: 5A09357 Assistance with Respiratory Ventilation, Less than 24 Consecutive Hours, Continuous Positive Airway Pressure (ICD-10-PCS; 2020-08-31)
PROC: XW033E5 Introduction of Remdesivir Anti-infective into Peripheral Vein, Percutaneous Approach, New Technology Group 5 (ICD-10-PCS; principal; 2020-09-04)
DX: U07.1 COVID-19 (principal); J96.01 Acute respiratory failure with hypoxia; K85.90 Acute pancreatitis without necrosis or infection, unspecified; J12.82 Pneumonia due to coronavirus disease 2019; D63.8 Anemia in other chronic diseases classified elsewhere
CPT/HCPCS: 36415; 71045; 80048; 80053; 81003; 82248; 82728; 82803; 83605; 83615; 83690; 83880; 84484; 85007; 85025; 85379; 85610; 85730; 86140; 87040; 93005; 93970; 94640; 94660; 96361; 96365; 96367; 96372; 96375; 99291; J3490; J7030; J7620; J8499